=== PATIENT | female | born 1935 | race Caucasian/White ===

== ENCOUNTER 2017-09-18 12:21 | Emergency (ER) | payer MEDICARE, OTHER ==
[2017-09-18 13:00] VITALS: BP 172/72
[2017-09-18] MEDS ORDERED: Lidocaine 1% 10 ML MDV INJECT ONE (13:09)
--- NOTE | 2017-09-18 13:16 | EDM.PDOC ---
ED HPI GENERAL MEDICAL PROBLEM - General Chief Complaint: Laceration Stated Complaint: RIGHT PINKY INJURY Time Seen by Provider: 09/18/17 13:05 Source of Information: Reports: Patient History Limitations: Reports: No Limitations - History of Present Illness INITIAL COMMENTS - FREE TEXT/NARRATIVE: Patient is a 81-year-old female who presents to the ED complaining of a laceration to the distal phalanx of the right fifth finger. Patient accidentally got her finger caught in a door while it was closing on the hinge side. Pain is localized. Bleeding controlled. Tetanus status up-to-date. No other complaints at this time. Right 5-Little finger Pain Score (Numeric/FACES): 8 - Related Data Allergies Allergy/AdvReac Type Severity Reaction Status Date / Time No Known Allergies Allergy Verified 09/18/17 13:00 Home Meds: Home Meds Cephalexin [Keflex] 500 mg PO Q6HR #28 cap 09/18/17 [Rx] Past Medical History Other HEENT History: Glasses Cardiovascular History: Reports: Hypertension Other Genitourinary History: Urgency, surgery to assist with and it helped for a few years but now she has trouble holding her bladder again. 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 Other Musculoskeletal Surgeries/Procedures:: 2 back surgeries Social & Family History - Tobacco Use Smoking Status *Q: Never Smoker Second Hand Smoke Exposure: No - Alcohol Use Days Per Week of Alcohol Use: 0 - Recreational Drug Use Recreational Drug Use: No ED ROS GENERAL - Review of Systems Review Of Systems: See Below Musculoskeletal: Reports: Other (finger pain) Skin: Reports: Wound Neurological: Denies: Numbness, Tingling ED EXAM, SKIN/RASH Exam: See Below Exam Limited By: No Limitations General Appearance: Alert, WD/WN, No Apparent Distress Ears: Hearing Grossly Normal Nose: Normal Inspection Throat/Mouth: Normal Voice, No Airway Compromise Neck: Normal Inspection, Supple Respiratory/Chest: No Respiratory Distress, No Accessory Muscle Use Cardiovascular: Normal Peripheral Pulses, Regular Rate, Rhythm Peripheral Pulses: 2+: Radial (L) Extremities: Other (2.25 cm laceration to the ventral side of the distal phalanx. No pain with flexion/extension of the joints of the affected finger. No sensory deficits noted. no other complaints with plapation of the other fingers and hand. ) Neurological: Alert, Oriented, CN II-XII Intact, Normal Cognition, No Motor/ Sensory Deficits Psychiatric: Normal Affect, Normal Mood Skin: Warm, Dry ED SKIN PROCEDURES - Laceration/Wound Repair Right Finger Lac/Wound length In cm: 2.2 Appearance: Subcutaneous, Clean Distal NVT: Neuro & Vascular Intact, No Tendon Injury Anesthetic Type: Local Local Anesthesia - Lidocaine (Xylocaine): 1% Plain Local Anesthetic Volume: 4cc Skin Prep: Chlorhexidine (Hibiciens), Saline, Sterile Drape Exploration/Debridement/Repair: Wound Explored, In a Bloodless Field, Explored to Base, No Foreign Material Found Closed with: Sutures Suture Size: 4-0 # of Sutures: 9 Suture Type: Prolene, Interrupted, Simple Drain Placement: No Sterile Dressing Applied: Nurse Tetanus Status Addressed: Yes Complications: No Course - Vital Signs Last Recorded V/S: Last Vital Signs Temp 98.5 F 09/18/17 12:56 Pulse 88 09/18/17 12:56 Resp 18 09/18/17 12:56 BP 172/72 H 09/18/17 12:56 Pulse Ox 100 09/18/17 12:56 - Orders/Labs/Meds Orders: Active Orders 24 hr Category Date Time Status Fingers Fifth Digit Rt F9 [CR] Stat Exams 09/18/17 13:30 Taken Meds: Medications Discontinued Medications Generic Name Dose Route Start Last Admin Trade Name Freq PRN Reason Stop Dose Admin Lidocaine HCl 10 ml 09/18/17 13:09 09/18/17 13:17 Xylocaine 1% INJECT 09/18/17 13:10 10 ml ONETIME ONE Administration - Re-Assessments/Exams Free Text/Narrative Re-Assessment/Exam: Laceration to the distal phalanx of the right 5th finger sustained from a crush injury. Patient has full range of motion. No sensory deficits. X-ray of the right pinky finger will be obtained. Ordered lidocaine 1%. 09/18/17 13:35 Laceration closed with no complications. X-ray of the finger did reveal a small tuft fracture present. For Keflex 500 mg by mouth. Splint applied with dressing. Final interpretation pending. Discharge instructions as documented. Departure - Departure Time of Disposition: 13:36 Disposition: Home, Self-Care 01 Condition: Good Clinical Impression: Closed fracture of tuft of distal phalanx of finger Laceration of finger Qualifiers: Encounter type: initial encounter Finger: little finger Damage to nail status: without damage Foreign body presence: without foreign body Laterality: right Qualified Code(s): S61.216A - Laceration without foreign body of right little finger without damage to nail, initial encounter - Discharge Information Prescriptions: Cephalexin [Keflex] 500 mg PO Q6HR #28 cap Instructions: Laceration Care, Adult, [id number], Stitches, [place], or Adhesive Wound Closure, [id number] Referrals: Godwin Degroot MD [Primary Care Provider] - Forms: ED Department Discharge Additional Instructions: Cleanse site twice daily with soap and water, pat dry, reapply triple antibiotic ointment, and dressing. Keep area clean and dry. Do not soak wound. Continue to wear splint for the next month. Follow-up with PCP for re-x-rays to ensure properly healed. Take Keflex 500 mg 4 times a day for the next 7 days. Elevate when able to decrease swelling and pain. Apply ice to the affected area 4 times daily, 30 minutes in duration. Take aleve 1-2 tabs twice a day and tylenol 650mg every 4 to 6 hours for pain. Follow-up with a provider at [facility] in [place] in 10 days for suture removal. Return to the ED as needed for any new or worsening symptoms. - My Orders Last 24 Hours: My Active Orders 09/18/17 13:30 Fingers Fifth Digit Rt F9 [CR] Stat - Assessment/Plan Last 24 Hours: My Active Orders 09/18/17 13:30 Fingers Fifth Digit Rt F9 [CR] Stat
[2017-09-18] MEDS ORDERED: Cephalexin 500 MG Cap PO ONE (14:16)
--- NOTE | 2017-09-20 07:59 | CR ---
Right fifth finger: Four views of the right fifth finger were obtained. Comparison: No prior finger or hand exam. Soft tissue swelling and soft tissue injury identified distally. Bony structures are slightly osteopenic. No acute fracture, dislocation or other bony abnormality is seen. Impression: 1. Incidental findings. No acute bony abnormality is identified on right fifth finger study. Diagnostic code #2
== END 2017-09-18 14:15 | disposition home or self-care (01) ==
LOC: JD.ED 12:21
DX: S62.636A Displaced fracture of distal phalanx of right little finger, initial encounter for closed fracture (principal); S61.216A Laceration without foreign body of right little finger without damage to nail, initial encounter; W23.0XXA Caught, crushed, jammed, or pinched between moving objects, initial encounter; I10 Essential (primary) hypertension
CPT/HCPCS: 12001; 73140; 99284; A9270; 99283-25

== ENCOUNTER 2020-01-09 08:11 | Day surgery (SDC) | payer MEDICARE, OTHER ==
[~2020-01-09 08:11] MED LIST: Phenylephrine 2.5% Ophth Soln 2 ML Bot EYELF SCH; Tropicamide 1% Ophth Soln 15 ML Bottle EYELF SCH
[2020-01-09] MEDS: Brimonidine 0.2% Ophth Soln 5 ML Bottle EYELF SCH ×2 (08:42→09:29)
[2020-01-09 10:05] VITALS: BP 134/61; PULSE 57
== END 2020-01-09 09:30 | disposition home or self-care (01) ==
LOC: JD.SDS 08:11
PROVIDERS: ATTEND Ophthalmology
DX: H26.492 Other secondary cataract, left eye (principal); H40.1134 Primary open-angle glaucoma, bilateral, indeterminate stage; H35.363 Drusen (degenerative) of macula, bilateral; H35.3131 Nonexudative age-related macular degeneration, bilateral, early dry stage; G24.5 Blepharospasm; H02.834 Dermatochalasis of left upper eyelid; H02.831 Dermatochalasis of right upper eyelid; H16.223 Keratoconjunctivitis sicca, not specified as Sjogren's, bilateral; H16.103 Unspecified superficial keratitis, bilateral; H34.8312 Tributary (branch) retinal vein occlusion, right eye, stable; Z79.899 Other long term (current) drug therapy; E78.00 Pure hypercholesterolemia, unspecified; I10 Essential (primary) hypertension; Z96.1 Presence of intraocular lens; Z98.41 Cataract extraction status, right eye; Z98.42 Cataract extraction status, left eye; Z98.890 Other specified postprocedural states

== ENCOUNTER 2020-07-08 08:55 | Inpatient (IN) | payer MEDICARE, OTHER ==
[2020-07-08] MEDS ORDERED: Sodium Chloride 0.9% 10 ML Syringe FLUSH PRN (09:19)
[2020-07-08] MEDS ORDERED: Sodium Chloride 0.9% 1,000 ML IV ONE (09:19)
[2020-07-08] MEDS ORDERED: Ondansetron 4 MG/2 ML SDV IVPUSH ONE (09:24)
--- NOTE | 2020-07-08 09:29 | EDM.PDOC ---
ED HPI GENERAL MEDICAL PROBLEM - General Chief Complaint: Chest Pain Stated Complaint: [facility] Time Seen by Provider: 07/08/20 09:06 Source of Information: Reports: Patient, EMS History Limitations: Reports: No Limitations - History of Present Illness INITIAL COMMENTS - FREE TEXT/NARRATIVE: The patient presents by [facility] for chest pain, cough, fever and generalized weakness. This all started this weekend on Wednesday with a cough, congestion and runny nose. She has a fever and generalized weakness. She also has a headache and chest pressure. She is short of breath. She does have urinary issues where she is incontinent at times. 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 She is in remission. She has nausea and vomiting. She has no diarrhea. She still has her sense of taste and smell. Onset: Gradual Duration: Day(s): Location: Reports: Chest Quality: Reports: Pressure Severity: Moderate Improves with: Reports: None Worsens with: Reports: None Associated Symptoms: Reports: Chest Pain, Cough, Fever/Chills, Headaches, Nausea/Vomiting, Shortness of Breath Chest Pain Score (Numeric/FACES): 5 - Related Data Allergies Allergy/AdvReac Type Severity Reaction Status Date / Time No Known Allergies Allergy Verified 07/08/20 09:18 Home Meds: Home Meds Alendronate Sodium [Fosamax] 70 mg PO GONZALEZ 01/08/20 [History] Ascorbic Acid [Vitamin C] 1,000 mg PO DAILY 01/08/20 [History] B2/Vits A,C,E/Lut/Zeaxanth/Min [Icaps] 1 tab PO DAILY 01/08/20 [History] Brimonidine Tartrate/Timolol [Combigan Eye Drops] 1 drop OP BID 01/08/20 [History] Dexlansoprazole [Dexilant] 60 mg PO DAILY 01/08/20 [History] Docusate Sodium [Colace] 100 mg PO BID 01/08/20 [History] Fish Oil/[place]-3 Fatty Acids [Fish Oil 1,000 MG] 1,000 mg PO DAILY 01/08/20 [History] Levothyroxine [Synthroid] 100 mcg PO ACBREAKFAST 01/08/20 [History] Losartan [Cozaar] 50 mg PO DAILY 01/08/20 [History] Mirabegron [Myrbetriq] 50 mg PO DAILY 01/08/20 [History] Propranolol [Inderal LA 24 Hr] 60 mg PO DAILY 01/08/20 [History] Propylene Glycol/PEG 400/Pf [Systane 0.3-0.4% Eye Drops] 1 drop OP ASDIRECTED PRN 01/08/20 [History] Rosuvastatin [Crestor] 5 mg PO DAILY 01/08/20 [History] Sertraline [Zoloft] 25 mg PO QPM 01/08/20 [History] Spironolactone [Aldactone] 25 mg PO DAILY 01/08/20 [History] Travoprost [Travatan Z] 1 ml EYERT QPM 01/08/20 [History] Past Medical History Other HEENT History: Glasses Cardiovascular History: Reports: Hypertension Other Genitourinary History: Urgency, surgery to assist with and it helped for a few years but now she has trouble holding her bladder again. 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 Other Musculoskeletal Surgeries/Procedures:: 2 back surgeries Social & Family History - Family History Family Medical History: Noncontributory ED ROS GENERAL - Review of Systems Review Of Systems: See Below Constitutional: Reports: Fever, Chills, Malaise, Weakness, Fatigue HEENT: Reports: Other (runny nose and congestion) Respiratory: Reports: Shortness of Breath, Cough Cardiovascular: Reports: No Symptoms Endocrine: Reports: Fatigue GI/Abdominal: Reports: Nausea, Vomiting. Denies: Abdominal Pain, Diarrhea : Reports: No Symptoms Musculoskeletal: Reports: No Symptoms Neurological: Reports: Headache, Weakness (generalized). Denies: Dizziness, Numbness ED EXAM, GENERAL - Physical Exam Exam: See Below Exam Limited By: No Limitations General Appearance: Alert, No Apparent Distress Ears: Normal External Exam Nose: Normal Inspection Head: Atraumatic, Normocephalic Neck: Normal Inspection, Supple, Non-Tender Respiratory/Chest: No Respiratory Distress, Lungs Clear, Normal Breath Sounds Cardiovascular: Regular Rate, Rhythm, No Edema, No Murmur GI/Abdominal: Soft, Non-Tender, No Organomegaly, No Mass Back Exam: Normal Inspection Extremities: Normal Inspection Neurological: Alert, Oriented, No Motor/Sensory Deficits Course - Vital Signs Last Recorded V/S: Last Vital Signs Temp 98.7 F 07/08/20 11:15 Pulse 100 07/08/20 08:55 Resp 16 07/08/20 08:55 BP 190/82 H 07/08/20 08:55 Pulse Ox 96 07/08/20 08:55 - Orders/Labs/Meds Orders: Active Orders 24 hr Category Date Time Status Blood Pressure Mgt: Sepsis [RC] Q15MX2 Care 07/08/20 09:19 Active EKG Documentation Completion [RC] ASDIRECTED Care 07/08/20 09:22 Active Implanted Port Access [RC] CONTINUOUS Care 07/08/20 09:23 Active CULTURE BLOOD [BC] Stat Lab 07/08/20 09:30 Received CULTURE BLOOD [BC] Stat Lab 07/08/20 09:49 Received Sodium Chloride 0.9% [Normal Saline] 1,000 ml Med 07/08/20 09:19 Active IV BOLUS Sodium Chloride 0.9% [Saline Flush] Med 07/08/20 09:19 Active 10 ml FLUSH ASDIRECTED PRN Blood Culture x2 Reflex Set [OM.PC] Stat Oth 07/08/20 09:19 Ordered Saline Lock Insert [OM.PC] Stat Oth 07/08/20 09:19 Ordered EKG 12 Lead [EK] Stat Ther 07/08/20 09:22 Ordered Medication Orders Sodium Chloride (Normal Saline) 1,000 mls @ 125 mls/hr IV BOLUS ONE; Protocol Stop: 07/08/20 17:18 Last Admin: 07/08/20 09:51 Dose: 125 mls/hr Documented by: FLORINDA Sodium Chloride (Saline Flush) 10 ml FLUSH ASDIRECTED PRN PRN Reason: Keep Vein Open Last Admin: 07/08/20 09:52 Dose: 10 ml Documented by: FLORINAD Labs: Laboratory Tests 07/08/20 07/08/20 07/08/20 Range/Units 09:35 09:35 09:35 WBC (3.98-10.04) K/mm3 RBC (3.98-5.22) M/mm3 Hgb (11.2-15.7) gm/dl Hct (34.1-44.9) % MCV (79.4-94.8) fl MCH (25.6-32.2) pg MCHC (32.2-35.5) g/dl RDW Std Deviation (36.4-46.3) fL Plt Count (182-369) K/mm3 MPV (9.4-12.3) fl Neutrophils % (Manual) (40-60) % Band Neutrophils % (0-10) % Lymphocytes % (Manual) (20-40) % Atypical Lymphs % % Monocytes % (Manual) (2-10) % Eosinophils % (Manual) (0.7-5.8) % Basophils % (Manual) (0.1-1.2) Platelet Estimate RBC Morph Comment PT 10.9 (9.7-11.7) SECONDS INR 1.02 D-Dimer, Quantitative 0.65 H (0.19-0.50) mg/L Puncture Site ABG pH (7.35-7.45) ABG pCO2 (35.0-45.0) mmHg ABG pO2 (80.0-100.0) mmHg ABG HCO3 (22.0-26.0) meq/L ABG O2 Saturation (96.0-97.0) % ABG Base Excess (-2-2.0) Evaristo Test A-a Gradient mmHg O2 Delivery Device Oxygen Flow Rate FiO2 (21.00-100.00) % Sodium 136 (136-145) mEq/L Potassium 3.4 L (3.5-5.1) mEq/L Chloride 98 (98-107) mEq/L Carbon Dioxide 26 (21-32) mEq/L Anion Gap 15.4 H (5-15) BUN 10 (7-18) mg/dL Creatinine 0.7 (0.55-1.02) mg/dL Est Cr Clr Drug Dosing 51.26 mL/min Estimated GFR (MDRD) > 60 (>60) mL/min BUN/Creatinine Ratio 14.3 (14-18) Glucose 123 H (83-115) mg/dL Lactic Acid 1.0 (0.4-2.0) mmol/L Calcium 8.8 (8.5-10.1) mg/dL Ferritin (8-252) ng/ml Total Bilirubin 0.5 (0.2-1.0) mg/dL AST 33 (15-37) U/L ALT 33 (14-59) U/L Alkaline Phosphatase 105 (46-116) U/L Lactate Dehydrogenase 237 H (81-234) U/L Troponin I < 0.017 (0.00-0.056) ng/mL C-Reactive Protein 1.1 H* (<1.0) mg/dL Total Protein 7.4 (6.4-8.2) g/dl Albumin 4.0 (3.4-5.0) g/dl Globulin 3.4 gm/dL Albumin/Globulin Ratio 1.2 (1-2) Urine Color (Yellow) Urine Appearance (Clear) Urine pH (5.0-8.0) Ur Specific [place] (1.005-1.030) Urine Protein (Negative) Urine Glucose (UA) (Negative) Urine Ketones (Negative) Urine Occult Blood (Negative) Urine Nitrite (Negative) Urine Bilirubin (Negative) Urine Urobilinogen (0.2-1.0) Ur Leukocyte Esterase (Negative) Urine RBC (0-5) /hpf Urine WBC (0-5) /hpf Ur Epithelial Cells (0-5) /hpf Urine Bacteria (FEW) /hpf Urine Mucus (FEW) /hpf SARS Virus RNA (PCR) (NEGATIVE) 07/08/20 07/08/20 07/08/20 Range/Units 09:35 09:39 09:40 WBC 5.14 (3.98-10.04) K/mm3 RBC 4.97 (3.98-5.22) M/mm3 Hgb 14.8 D (11.2-15.7) gm/dl Hct 44.4 (34.1-44.9) % MCV 89.3 (79.4-94.8) fl MCH 29.8 (25.6-32.2) pg MCHC 33.3 (32.2-35.5) g/dl RDW Std Deviation 43.4 (36.4-46.3) fL Plt Count 172 L (182-369) K/mm3 MPV 10.9 (9.4-12.3) fl Neutrophils % (Manual) 65 H (40-60) % Band Neutrophils % 0 (0-10) % Lymphocytes % (Manual) 12 L (20-40) % Atypical Lymphs % 0 % Monocytes % (Manual) 23 H (2-10) % Eosinophils % (Manual) 0 L (0.7-5.8) % Basophils % (Manual) 0 L (0.1-1.2) Platelet Estimate Adequate RBC Morph Comment Normal PT (9.7-11.7) SECONDS INR D-Dimer, Quantitative (0.19-0.50) mg/L Puncture Site Rt radial ABG pH 7.47 H (7.35-7.45) ABG pCO2 33.7 L (35.0-45.0) mmHg ABG pO2 91.0 (80.0-100.0) mmHg ABG HCO3 24.1 (22.0-26.0) meq/L ABG O2 Saturation 96.2 (96.0-97.0) % ABG Base Excess 1.4 (-2-2.0) Evaristo Test Positive A-a Gradient 16 mmHg O2 Delivery Device Room air Oxygen Flow Rate 0.0 FiO2 21.00 (21.00-100.00) % Sodium (136-145) mEq/L Potassium (3.5-5.1) mEq/L Chloride (98-107) mEq/L Carbon Dioxide (21-32) mEq/L Anion Gap (5-15) BUN (7-18) mg/dL Creatinine (0.55-1.02) mg/dL Est Cr Clr Drug Dosing mL/min Estimated GFR (MDRD) (>60) mL/min BUN/Creatinine Ratio (14-18) Glucose (83-115) mg/dL Lactic Acid (0.4-2.0) mmol/L Calcium (8.5-10.1) mg/dL Ferritin 37 (8-252) ng/ml Total Bilirubin (0.2-1.0) mg/dL AST (15-37) U/L ALT (14-59) U/L Alkaline Phosphatase (46-116) U/L Lactate Dehydrogenase (81-234) U/L Troponin I (0.00-0.056) ng/mL C-Reactive Protein (<1.0) mg/dL Total Protein (6.4-8.2) g/dl Albumin (3.4-5.0) g/dl Globulin gm/dL Albumin/Globulin Ratio (1-2) Urine Color (Yellow) Urine Appearance (Clear) Urine pH (5.0-8.0) Ur Specific [place] (1.005-1.030) Urine Protein (Negative) Urine Glucose (UA) (Negative) Urine Ketones (Negative) Urine Occult Blood (Negative) Urine Nitrite (Negative) Urine Bilirubin (Negative) Urine Urobilinogen (0.2-1.0) Ur Leukocyte Esterase (Negative) Urine RBC (0-5) /hpf Urine WBC (0-5) /hpf Ur Epithelial Cells (0-5) /hpf Urine Bacteria (FEW) /hpf Urine Mucus (FEW) /hpf SARS Virus RNA (PCR) (NEGATIVE) 07/08/20 07/08/20 Range/Units 10:05 10:20 WBC (3.98-10.04) K/mm3 RBC (3.98-5.22) M/mm3 Hgb (11.2-15.7) gm/dl Hct (34.1-44.9) % MCV (79.4-94.8) fl MCH (25.6-32.2) pg MCHC (32.2-35.5) g/dl RDW Std Deviation (36.4-46.3) fL Plt Count (182-369) K/mm3 MPV (9.4-12.3) fl Neutrophils % (Manual) (40-60) % Band Neutrophils % (0-10) % Lymphocytes % (Manual) (20-40) % Atypical Lymphs % % Monocytes % (Manual) (2-10) % Eosinophils % (Manual) (0.7-5.8) % Basophils % (Manual) (0.1-1.2) Platelet Estimate RBC Morph Comment PT (9.7-11.7) SECONDS INR D-Dimer, Quantitative (0.19-0.50) mg/L Puncture Site ABG pH (7.35-7.45) ABG pCO2 (35.0-45.0) mmHg ABG pO2 (80.0-100.0) mmHg ABG HCO3 (22.0-26.0) meq/L ABG O2 Saturation (96.0-97.0) % ABG Base Excess (-2-2.0) Evaristo Test A-a Gradient mmHg O2 Delivery Device Oxygen Flow Rate FiO2 (21.00-100.00) % Sodium (136-145) mEq/L Potassium (3.5-5.1) mEq/L Chloride (98-107) mEq/L Carbon Dioxide (21-32) mEq/L Anion Gap (5-15) BUN (7-18) mg/dL Creatinine (0.55-1.02) mg/dL Est Cr Clr Drug Dosing mL/min Estimated GFR (MDRD) (>60) mL/min BUN/Creatinine Ratio (14-18) Glucose (83-115) mg/dL Lactic Acid (0.4-2.0) mmol/L Calcium (8.5-10.1) mg/dL Ferritin (8-252) ng/ml Total Bilirubin (0.2-1.0) mg/dL AST (15-37) U/L ALT (14-59) U/L Alkaline Phosphatase (46-116) U/L Lactate Dehydrogenase (81-234) U/L Troponin I (0.00-0.056) ng/mL C-Reactive Protein (<1.0) mg/dL Total Protein (6.4-8.2) g/dl Albumin (3.4-5.0) g/dl Globulin gm/dL Albumin/Globulin Ratio (1-2) Urine Color Yellow (Yellow) Urine Appearance Clear (Clear) Urine pH 8.5 H (5.0-8.0) Ur Specific [place] 1.020 (1.005-1.030) Urine Protein 1+ H (Negative) Urine Glucose (UA) Negative (Negative) Urine Ketones 2+ H (Negative) Urine Occult Blood Negative (Negative) Urine Nitrite Negative (Negative) Urine Bilirubin Negative (Negative) Urine Urobilinogen 0.2 (0.2-1.0) Ur Leukocyte Esterase Negative (Negative) Urine RBC 0-5 (0-5) /hpf Urine WBC 0-5 (0-5) /hpf Ur Epithelial Cells 0-5 (0-5) /hpf Urine Bacteria Few (FEW) /hpf Urine Mucus Few (FEW) /hpf SARS Virus RNA (PCR) Positive H (NEGATIVE) Meds: Medications Generic Name Dose Route Start Last Admin Trade Name Freq PRN Reason Stop Dose Admin Sodium Chloride 1,000 mls @ 125 mls/hr 07/08/20 09:19 07/08/20 09:51 Normal Saline IV 07/08/20 17:18 125 mls/hr BOLUS ONE Administration Protocol Sodium Chloride 10 ml 07/08/20 09:19 07/08/20 09:52 Saline Flush FLUSH 10 ml ASDIRECTED PRN Administration Keep Vein Open Discontinued Medications Generic Name Dose Route Start Last Admin Trade Name Braxton PRN Reason Stop Dose Admin Acetaminophen 975 mg 07/08/20 11:10 07/08/20 11:15 Tylenol PO 07/08/20 11:11 975 mg NOW ONE Administration Ondansetron HCl 4 mg 07/08/20 09:24 07/08/20 09:52 Zofran IVPUSH 07/08/20 09:25 4 mg ONETIME ONE Administration - Re-Assessments/Exams Free Text/Narrative Re-Assessment/Exam: 07/08/20 09:31 The patient went in COVID precautions. I have ordered my nurse to access her port and give NS at 125ml/hr, zofran 4mg IV, labs, UA, blood cultures, COVID 19, and CXR. 07/08/20 11:40 Her EKG shows a NSR with no acute changes. She does have a 1st degree HB. Her CXR shows nothing acute. Her CBC is negative. Her PT is normal. Her D-dimer is slightly elevated at 0.65. Her pH is elevated at 7.47. Her pCO2 is low at 33.7. Her K is low at 3.4. Her anion gap is elevated at 15.4. Her UA shows no UTI. Her lactic acid is 1. Her LDH is elevated at 237. Her troponin is negative. Her CRP is elevated at 1.1. Her COVID 19 is positive. She had a headache so I ordered some tylenol. Her CXR looks good and her oxygen saturations look good but she is very weak and I do not think she is going to do well at home. I called Dr Matthews and he agreed to the admission. Departure - Departure Time of Disposition: 11:45 Disposition: Admitted As Inpatient 68 Condition: Fair Clinical Impression: COVID-19, Generalized weakness Referrals: Godwin Degroot MD [Primary Care Provider] - Forms: ED Department Discharge Sepsis Event Note (ED) - Evaluation Sepsis Screening Result: No Definite Risk - Focused Exam Vital Signs: Vital Signs Temp Temp Pulse Resp BP Pulse Ox 07/08/20 11:15 98.7 F 07/08/20 08:55 98.6 F 100 16 190/82 H 96 - My Orders Last 24 Hours: My Active Orders 07/08/20 09:19 Blood Pressure Mgt: Sepsis [RC] Q15MX2 Sodium Chloride 0.9% [Normal Saline] 1,000 ml IV BOLUS Sodium Chloride 0.9% [Saline Flush] 10 ml FLUSH ASDIRECTED PRN Blood Culture x2 Reflex Set [OM.PC] Stat Saline Lock Insert [OM.PC] Stat 07/08/20 09:22 EKG Documentation Completion [RC] ASDIRECTED EKG 12 Lead [EK] Stat 07/08/20 09:23 Implanted Port Access [RC] CONTINUOUS 07/08/20 09:30 CULTURE BLOOD [BC] Stat 07/08/20 09:49 CULTURE BLOOD [BC] Stat - Assessment/Plan Last 24 Hours: My Active Orders 07/08/20 09:19 Blood Pressure Mgt: Sepsis [RC] Q15MX2 Sodium Chloride 0.9% [Normal Saline] 1,000 ml IV BOLUS Sodium Chloride 0.9% [Saline Flush] 10 ml FLUSH ASDIRECTED PRN Blood Culture x2 Reflex Set [OM.PC] Stat Saline Lock Insert [OM.PC] Stat 07/08/20 09:22 EKG Documentation Completion [RC] ASDIRECTED EKG 12 Lead [EK] Stat 07/08/20 09:23 Implanted Port Access [RC] CONTINUOUS 07/08/20 09:30 CULTURE BLOOD [BC] Stat 07/08/20 09:49 CULTURE BLOOD [BC] Stat
--- NOTE | 2020-07-08 10:23 | CR ---
Chest: Frontal view of the chest was obtained. Comparison: Prior chest x-ray of 08/21/09. Heart size and mediastinum are normal. Lungs are clear with no acute parenchymal change. Right-sided infusion port is seen. Previous lumbar spine surgery is noted. Scoliosis present with him in spine. Surgical clips are seen from prior cholecystectomy. Impression: 1. Findings as described above. 2. Nothing acute is appreciated. Diagnostic code #2 This report was dictated in MDT
[2020-07-08] MEDS ORDERED: Acetaminophen 325 MG Tab PO ONE (11:10)
[2020-07-08] MEDS ORDERED: Carboxymethylcellulose Sodium 1% Ophth Gel 15 ML Bottle EYEBOTH PRN (14:11)
--- NOTE | 2020-07-08 14:28 | PCM.HP.2 ---
H&P History of Present Illness - General Date of Service: 07/08/20 Admit Problem/Dx: Admission Diagnosis/Problem Admission Diagnosis/Problem Weakness Source of Information: Patient, Provider, RN, RN Notes Reviewed History Limitations: Reports: No Limitations - History of Present Illness Initial Comments - Free Text/Narative: Evangelina is a 84 year old female who presented to the ED by [facility] with complaints of chest pain and cough and sore throat. She states that these symptoms started two days ago and she believed that she was just getting a cold. Generalized weakness and nausea were also noted. She is short of breath and has a headache at present. She denies vomiting but has been nauseated. She states that she still has an appetite and has been eating frequent small meals. She has a history of urinary incontinence. History of non Hodgkin's lymphoma that has been in remission for about a year. She has a port to her right chest. In the ED chest xray revealed nothing acute. She had a temp of 98.7, pulse 100, RR 16, BP 190/82 and pulse ox was 96% on room air. CBC was unremarkable other than a platelet count of 172. ABG's reveal a pH of 7.47, pCO2 33.7 pO2 91.0, HCO3 24.1 on room air. D-dimer 0.65. Na 136, K+3.4, Anion Gap 15.4., lactic acid 1.0, LDH 237, CRP 1.1 Ferritin 37. UA was unremarkable. Blood cultures were obtained. SARS positive. NS was started at 125ml/hr. Onset of Symptoms: Reports: Gradual, Other (Wednesday, 2019) Duration of Symptoms: Reports: Constant Location: Reports: Chest, Generalized (respiratory symptoms, congestion, cough, sore throat, body aches, nausea without vomiting) Quality: Reports: Ache Severity: Mild Improves with: Reports: None Worsens with: Reports: None Associated Symptoms: Reports: Chest Pain, Cough, Fever/Chills, Malaise, Nausea/Vomiting (nausea without vomiting) Chest Pain Score (Numeric/FACES): 5 - Related Data Allergies/Adverse Reactions: Allergies Allergy/AdvReac Type Severity Reaction Status Date / Time No Known Allergies Allergy Verified 07/08/20 13:17 Home Medications: Home Meds Alendronate Sodium [Fosamax] 70 mg PO GONZALEZ 01/08/20 [History] Ascorbic Acid [Vitamin C] 1,000 mg PO DAILY 01/08/20 [History] B2/Vits A,C,E/Lut/Zeaxanth/Min [Icaps] 1 tab PO DAILY 01/08/20 [History] Brimonidine Tartrate/Timolol [Combigan Eye Drops] 1 drop OP BID 01/08/20 [His tory] Dexlansoprazole [Dexilant] 60 mg PO DAILY 01/08/20 [History] Docusate Sodium [Colace] 100 mg PO BID 01/08/20 [History] Fish Oil/Mineral-3 Fatty Acids [Fish Oil 1,000 MG] 1,000 mg PO DAILY 01/08/20 [History] Levothyroxine [Synthroid] 100 mcg PO ACBREAKFAST 01/08/20 [History] Losartan [Cozaar] 50 mg PO DAILY 01/08/20 [History] Mirabegron [Myrbetriq] 50 mg PO DAILY 01/08/20 [History] Propranolol [Inderal LA 24 Hr] 60 mg PO DAILY 01/08/20 [History] Propylene Glycol/PEG 400/Pf [Systane 0.3-0.4% Eye Drops] 1 drop OP ASDIRECTED PRN 01/08/20 [History] Rosuvastatin [Crestor] 5 mg PO DAILY 01/08/20 [History] Sertraline [Zoloft] 25 mg PO QPM 01/08/20 [History] Spironolactone [Aldactone] 25 mg PO DAILY 01/08/20 [History] Betamethasone/Propylene Glyc [Betamethasone Dp Aug 0.05% Oin] 1 applic TOP BID 07/08/20 [History] Cyclobenzaprine [Flexeril] 10 mg PO BEDTIME PRN 07/08/20 [History] Latanoprost 1 drop EYERT BEDTIME 07/08/20 [History] Past Medical History HEENT History: Reports: Impaired Vision, Macular Degeneration Other HEENT History: Glasses Cardiovascular History: Reports: High Cholesterol, Hypertension Other Cardiovascular History: 'legs swell' Respiratory History: Reports: Bronchitis, Recurrent, Pneumonia, Recurrent Gastrointestinal History: Reports: PUD Genitourinary History: Reports: Urinary Incontinence, UTI, Recurrent Other Genitourinary History: Urgency, surgery to assist with and it helped for a few years but now she has trouble holding her bladder again. 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 Hematologic History: Reports: Anemia Immunologic History: Reports: Immunosuppression Oncologic (Cancer) History: Reports: Non-Hodgkin's Lymphoma Other Oncologic History: remission for about a year Dermatologic History: Reports: Psoriasis - Infectious Disease History Infectious Disease History: Reports: Influenza, Measles, Mumps, Novel Coronavirus - Past Surgical History HEENT Surgical History: Reports: Cataract Surgery GI Surgical History: Reports: Appendectomy, Cholecystectomy Other GI Surgeries/Procedures: 2 colon surgeries to remove polyps. Other Musculoskeletal Surgeries/Procedures:: 2 back surgeries Social & Family History - Family History Family Medical History: Noncontributory - Tobacco Use Smoking Status *Q: Never Smoker Second Hand Smoke Exposure: No - Caffeine Use Caffeine Use: Reports: None - Recreational Drug Use Recreational Drug Use: No H&P Review of Systems - Review of Systems: Review Of Systems: See Below General: Reports: Malaise, Weakness, Fatigue HEENT: Reports: Sore Throat, Other (macular degeneration to right eye). Denies: Headaches Pulmonary: Reports: Pleuritic Chest Pain, Cough. Denies: Wheezing, Sputum Cardiovascular: Denies: Palpitations, Dyspnea on Exertion, Orthopnea, Edema, Syncope Gastrointestinal: Reports: Nausea. Denies: Abdominal Pain, Diarrhea, Vomiting Genitourinary: Reports: Frequency, Incontinence. Denies: Dysuria, Burning, Pain Musculoskeletal: Reports: No Symptoms Skin: Reports: No Symptoms Psychiatric: Reports: No Symptoms Neurological: Reports: No Symptoms Hematologic/Lymphatic: Reports: No Symptoms Immunologic: Reports: No Symptoms Exam - Exam Exam: See Below - Vital Signs Vital Signs: Last Vital Signs Temp 98.2 F 07/08/20 13:15 Pulse 78 07/08/20 13:15 Resp 16 07/08/20 13:15 BP 144/98 H 07/08/20 13:15 Pulse Ox 97 07/08/20 13:15 Weight: 155 lb 14.4 oz - Exam Quality Assessment: DVT Prophylaxis. No: Supplemental Oxygen, Urinary Catheter General: Alert, Oriented, Cooperative, Mild Distress HEENT: Conjunctiva Clear, Hearing Intact (oral mucosa slightly dry, macular deg enteration to right eye) Neck: Supple, Trachea Midline, Full Range of Motion. No: Lymphadenopathy Lungs: Clear to Auscultation, Normal Respiratory Effort. No: Decreased Breath Sounds, Crackles, Rales, Rhonchi, Rub, Wheezing Cardiovascular: Regular Rate, Regular Rhythm, Normal S1, Normal S2 GI/Abdominal Exam: Normal Bowel Sounds, Soft, Non-Tender, No Distention Back Exam: Normal Inspection Extremities: Normal Inspection, Normal Range of Motion, Non-Tender, No Pedal Edema, Normal Capillary Refill Peripheral Pulses: 2+: Radial (L), Radial (R) Skin: Warm, Dry, Intact Neurological: Cranial Nerves Intact, Normal Speech Neuro Extensive - Mental Status: Alert, Oriented x3, Normal Mood/Affect, Normal Cognition, Memory Intact Psychiatric: Alert, Normal Affect, Normal Mood - Patient Data Lab Results Last 24 hrs: Laboratory Results - last 24 hr 07/08/20 07/08/20 07/08/20 Range/Units 09:35 09:35 09:35 WBC (3.98-10.04) K/mm3 RBC (3.98-5.22) M/mm3 Hgb (11.2-15.7) gm/dl Hct (34.1-44.9) % MCV (79.4-94.8) fl MCH (25.6-32.2) pg MCHC (32.2-35.5) g/dl RDW Std Deviation (36.4-46.3) fL Plt Count (182-369) K/mm3 MPV (9.4-12.3) fl Neutrophils % (Manual) (40-60) % Band Neutrophils % (0-10) % Lymphocytes % (Manual) (20-40) % Atypical Lymphs % % Monocytes % (Manual) (2-10) % Eosinophils % (Manual) (0.7-5.8) % Basophils % (Manual) (0.1-1.2) Platelet Estimate RBC Morph Comment PT 10.9 (9.7-11.7) SECONDS INR 1.02 D-Dimer, Quantitative 0.65 H (0.19-0.50) mg/L Puncture Site ABG pH (7.35-7.45) ABG pCO2 (35.0-45.0) mmHg ABG pO2 (80.0-100.0) mmHg ABG HCO3 (22.0-26.0) meq/L ABG O2 Saturation (96.0-97.0) % ABG Base Excess (-2-2.0) Evaristo Test A-a Gradient mmHg O2 Delivery Device Oxygen Flow Rate FiO2 (21.00-100.00) % Sodium 136 (136-145) mEq/L Potassium 3.4 L (3.5-5.1) mEq/L Chloride 98 (98-107) mEq/L Carbon Dioxide 26 (21-32) mEq/L Anion Gap 15.4 H (5-15) BUN 10 (7-18) mg/dL Creatinine 0.7 (0.55-1.02) mg/dL Est Cr Clr Drug Dosing 51.26 mL/min Estimated GFR (MDRD) > 60 (>60) mL/min BUN/Creatinine Ratio 14.3 (14-18) Glucose 123 H (83-115) mg/dL Lactic Acid 1.0 (0.4-2.0) mmol/L Calcium 8.8 (8.5-10.1) mg/dL Ferritin (8-252) ng/ml Total Bilirubin 0.5 (0.2-1.0) mg/dL AST 33 (15-37) U/L ALT 33 (14-59) U/L Alkaline Phosphatase 105 (46-116) U/L Lactate Dehydrogenase 237 H (81-234) U/L Troponin I < 0.017 (0.00-0.056) ng/mL C-Reactive Protein 1.1 H* (<1.0) mg/dL Total Protein 7.4 (6.4-8.2) g/dl Albumin 4.0 (3.4-5.0) g/dl Globulin 3.4 gm/dL Albumin/Globulin Ratio 1.2 (1-2) Urine Color (Yellow) Urine Appearance (Clear) Urine pH (5.0-8.0) Ur Specific [place] (1.005-1.030) Urine Protein (Negative) Urine Glucose (UA) (Negative) Urine Ketones (Negative) Urine Occult Blood (Negative) Urine Nitrite (Negative) Urine Bilirubin (Negative) Urine Urobilinogen (0.2-1.0) Ur Leukocyte Esterase (Negative) Urine RBC (0-5) /hpf Urine WBC (0-5) /hpf Ur Epithelial Cells (0-5) /hpf Urine Bacteria (FEW) /hpf Urine Mucus (FEW) /hpf SARS Virus RNA (PCR) (NEGATIVE) 07/08/20 07/08/20 07/08/20 Range/Units 09:35 09:39 09:40 WBC 5.14 (3.98-10.04) K/mm3 RBC 4.97 (3.98-5.22) M/mm3 Hgb 14.8 D (11.2-15.7) gm/dl Hct 44.4 (34.1-44.9) % MCV 89.3 (79.4-94.8) fl MCH 29.8 (25.6-32.2) pg MCHC 33.3 (32.2-35.5) g/dl RDW Std Deviation 43.4 (36.4-46.3) fL Plt Count 172 L (182-369) K/mm3 MPV 10.9 (9.4-12.3) fl Neutrophils % (Manual) 65 H (40-60) % Band Neutrophils % 0 (0-10) % Lymphocytes % (Manual) 12 L (20-40) % Atypical Lymphs % 0 % Monocytes % (Manual) 23 H (2-10) % Eosinophils % (Manual) 0 L (0.7-5.8) % Basophils % (Manual) 0 L (0.1-1.2) Platelet Estimate Adequate RBC Morph Comment Normal PT (9.7-11.7) SECONDS INR D-Dimer, Quantitative (0.19-0.50) mg/L Puncture Site Rt radial ABG pH 7.47 H (7.35-7.45) ABG pCO2 33.7 L (35.0-45.0) mmHg ABG pO2 91.0 (80.0-100.0) mmHg ABG HCO3 24.1 (22.0-26.0) meq/L ABG O2 Saturation 96.2 (96.0-97.0) % ABG Base Excess 1.4 (-2-2.0) Evaristo Test Positive A-a Gradient 16 mmHg O2 Delivery Device Room air Oxygen Flow Rate 0.0 FiO2 21.00 (21.00-100.00) % Sodium (136-145) mEq/L Potassium (3.5-5.1) mEq/L Chloride (98-107) mEq/L Carbon Dioxide (21-32) mEq/L Anion Gap (5-15) BUN (7-18) mg/dL Creatinine (0.55-1.02) mg/dL Est Cr Clr Drug Dosing mL/min Estimated GFR (MDRD) (>60) mL/min BUN/Creatinine Ratio (14-18) Glucose (83-115) mg/dL Lactic Acid (0.4-2.0) mmol/L Calcium (8.5-10.1) mg/dL Ferritin 37 (8-252) ng/ml Total Bilirubin (0.2-1.0) mg/dL AST (15-37) U/L ALT (14-59) U/L Alkaline Phosphatase (46-116) U/L Lactate Dehydrogenase (81-234) U/L Troponin I (0.00-0.056) ng/mL C-Reactive Protein (<1.0) mg/dL Total Protein (6.4-8.2) g/dl Albumin (3.4-5.0) g/dl Globulin gm/dL Albumin/Globulin Ratio (1-2) Urine Color (Yellow) Urine Appearance (Clear) Urine pH (5.0-8.0) Ur Specific [place] (1.005-1.030) Urine Protein (Negative) Urine Glucose (UA) (Negative) Urine Ketones (Negative) Urine Occult Blood (Negative) Urine Nitrite (Negative) Urine Bilirubin (Negative) Urine Urobilinogen (0.2-1.0) Ur Leukocyte Esterase (Negative) Urine RBC (0-5) /hpf Urine WBC (0-5) /hpf Ur Epithelial Cells (0-5) /hpf Urine Bacteria (FEW) /hpf Urine Mucus (FEW) /hpf SARS Virus RNA (PCR) (NEGATIVE) 07/08/20 07/08/20 Range/Units 10:05 10:20 WBC (3.98-10.04) K/mm3 RBC (3.98-5.22) M/mm3 Hgb (11.2-15.7) gm/dl Hct (34.1-44.9) % MCV (79.4-94.8) fl MCH (25.6-32.2) pg MCHC (32.2-35.5) g/dl RDW Std Deviation (36.4-46.3) fL Plt Count (182-369) K/mm3 MPV (9.4-12.3) fl Neutrophils % (Manual) (40-60) % Band Neutrophils % (0-10) % Lymphocytes % (Manual) (20-40) % Atypical Lymphs % % Monocytes % (Manual) (2-10) % Eosinophils % (Manual) (0.7-5.8) % Basophils % (Manual) (0.1-1.2) Platelet Estimate RBC Morph Comment PT (9.7-11.7) SECONDS INR D-Dimer, Quantitative (0.19-0.50) mg/L Puncture Site ABG pH (7.35-7.45) ABG pCO2 (35.0-45.0) mmHg ABG pO2 (80.0-100.0) mmHg ABG HCO3 (22.0-26.0) meq/L ABG O2 Saturation (96.0-97.0) % ABG Base Excess (-2-2.0) Evaristo Test A-a Gradient mmHg O2 Delivery Device Oxygen Flow Rate FiO2 (21.00-100.00) % Sodium (136-145) mEq/L Potassium (3.5-5.1) mEq/L Chloride (98-107) mEq/L Carbon Dioxide (21-32) mEq/L Anion Gap (5-15) BUN (7-18) mg/dL Creatinine (0.55-1.02) mg/dL Est Cr Clr Drug Dosing mL/min Estimated GFR (MDRD) (>60) mL/min BUN/Creatinine Ratio (14-18) Glucose (83-115) mg/dL Lactic Acid (0.4-2.0) mmol/L Calcium (8.5-10.1) mg/dL Ferritin (8-252) ng/ml Total Bilirubin (0.2-1.0) mg/dL AST (15-37) U/L ALT (14-59) U/L Alkaline Phosphatase (46-116) U/L Lactate Dehydrogenase (81-234) U/L Troponin I (0.00-0.056) ng/mL C-Reactive Protein (<1.0) mg/dL Total Protein (6.4-8.2) g/dl Albumin (3.4-5.0) g/dl Globulin gm/dL Albumin/Globulin Ratio (1-2) Urine Color Yellow (Yellow) Urine Appearance Clear (Clear) Urine pH 8.5 H (5.0-8.0) Ur Specific [place] 1.020 (1.005-1.030) Urine Protein 1+ H (Negative) Urine Glucose (UA) Negative (Negative) Urine Ketones 2+ H (Negative) Urine Occult Blood Negative (Negative) Urine Nitrite Negative (Negative) Urine Bilirubin Negative (Negative) Urine Urobilinogen 0.2 (0.2-1.0) Ur Leukocyte Esterase Negative (Negative) Urine RBC 0-5 (0-5) /hpf Urine WBC 0-5 (0-5) /hpf Ur Epithelial Cells 0-5 (0-5) /hpf Urine Bacteria Few (FEW) /hpf Urine Mucus Few (FEW) /hpf SARS Virus RNA (PCR) Positive H (NEGATIVE) Result Diagrams: 07/08/20 09:39 07/08/20 09:35 Sepsis Event Note - Evaluation Sepsis Screening Result: No Definite Risk - Focused Exam Vital Signs: Vital Signs Temp Temp Pulse Pulse Resp BP BP 07/08/20 13:15 98.2 F 78 16 144/98 H 07/08/20 11:15 98.7 F 07/08/20 08:55 98.6 F 100 16 190/82 H Pulse Ox 07/08/20 13:15 97 07/08/20 11:15 07/08/20 08:55 96 - Problem List (1) Macular degeneration SNOMED Code(s): 237093342 ICD Code: H35.30 - UNSPECIFIED MACULAR DEGENERATION Status: Chronic Priority: Medium Current Visit: Yes Qualifiers: Macular degeneration type: unspecified type Eye laterality: unspecified Qualified Code(s): H35.30 - Unspecified macular degeneration (2) PUD (peptic ulcer disease) SNOMED Code(s): 22996983 ICD Code: K27.9 - PEPTIC ULC, SITE UNSP, UNSP AC OR CHR, W/O HEMOR OR PERF Status: Chronic Priority: Medium Current Visit: Yes (3) Hypercholesteremia SNOMED Code(s): 28976451 ICD Code: E78.00 - PURE HYPERCHOLESTEROLEMIA, UNSPECIFIED Status: Chronic Priority: Medium Current Visit: Yes (4) 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 SNOMED Code(s): 12585781 ICD Code: R32 - UNSPECIFIED URINARY INCONTINENCE Status: Chronic Priority: Medium Current Visit: Yes (5) Essential tremor SNOMED Code(s): 806321589 ICD Code: G25.0 - ESSENTIAL TREMOR Status: Chronic Priority: Low Current Visit: Yes (6) Depression SNOMED Code(s): 95933605 ICD Code: F32.9 - MAJOR DEPRESSIVE DISORDER, SINGLE EPISODE, UNSPECIFIED Status: Chronic Priority: Low Current Visit: Yes Qualifiers: Depression Type: unspecified Qualified Code(s): F32.9 - Major depressive disorder, single episode, unspecified (7) Non-Hodgkin lymphoma in remission SNOMED Code(s): 695588682, 481289837 ICD Code: C85.90 - NON-HODGKIN LYMPHOMA, UNSPECIFIED, UNSPECIFIED SITE Status: Chronic Priority: Medium Current Visit: Yes (8) Generalized weakness SNOMED Code(s): 76427315 ICD Code: R53.1 - WEAKNESS Status: Acute Priority: High Current Visit: Yes (9) Nausea SNOMED Code(s): 920113648 ICD Code: R11.0 - NAUSEA Status: Acute Priority: High Current Visit: No (10) Hypertension SNOMED Code(s): 63495908 ICD Code: I10 - ESSENTIAL (PRIMARY) HYPERTENSION Status: Chronic Priority: Medium Current Visit: No Qualifiers: Hypertension type: unspecified Qualified Code(s): I10 - Essential (primary) hypertension (11) Hypothyroidism SNOMED Code(s): 99892846 ICD Code: E03.9 - HYPOTHYROIDISM, UNSPECIFIED Status: Chronic Priority: Medium Current Visit: No Qualifiers: Hypothyroidism type: unspecified Qualified Code(s): E03.9 - Hypothyroidism, unspecified (12) COVID-19 SNOMED Code(s): 385971059 ICD Code: U07.1 - COVID-19 Status: Acute Priority: High Current Visit: Yes Problem List Initiated/Reviewed/Updated: Yes Orders Last 24hrs: Active Orders 24 hr Category Date Time Status Patient Status [ADT] Routine ADT 07/08/20 13:01 Active Blood Pressure Mgt: Sepsis [RC] Q15MX2 Care 07/08/20 09:19 Active Cardiac Monitoring [RC] CONTINUOUS Care 07/08/20 13:53 Ordered Height and Weight [RC] DAILY Care 07/08/20 13:52 Ordered Implanted Port Access [RC] CONTINUOUS Care 07/08/20 09:23 Active Incentive Spirometry [RT Incentive Spirometry] [RC] Care 07/08/20 14:11 Ordered Q1HWA Intake and Output [RC] QSHIFT Care 07/08/20 13:53 Ordered Oxygen Therapy [RC] PRN Care 07/08/20 13:52 Ordered Pulse Oximetry [RC] PRN Care 07/08/20 13:53 Ordered RT Chest Physiotherapy [RC] ASDIRECTED Care 07/08/20 14:11 Ordered Up With Assistance [RC] ASDIRECTED Care 07/08/20 13:52 Ordered VTE/DVT Education [RC] PER UNIT ROUTINE Care 07/08/20 13:52 Ordered Vital Signs [RC] Q4H Care 07/08/20 13:52 Ordered Consult to Case Management/Cruise Counselor [CONS] Cons 07/08/20 13:52 Ordered Routine Consult to Obstetrics Teacher [CONS] Routine Cons 07/08/20 13:52 Ordered Consult to Spiritual Care [CONS] Routine Cons 07/08/20 13:52 Ordered Heart Healthy Diet [DIET] Diet 07/08/20 Dinner Active CBC WITH AUTO DIFF [HEME] AM Lab 07/09/20 05:11 Ordered CBC WITH AUTO DIFF [HEME] AM Lab 07/10/20 05:11 Ordered CBC WITH AUTO DIFF [HEME] AM Lab 07/11/20 05:11 Ordered CBC WITH AUTO DIFF [HEME] AM Lab 07/12/20 05:11 Ordered COMPREHENSIVE METABOLIC PN,CMP [CHEM] AM Lab 07/09/20 05:11 Ordered COMPREHENSIVE METABOLIC PN,CMP [CHEM] AM Lab 07/10/20 05:11 Ordered COMPREHENSIVE METABOLIC PN,CMP [CHEM] AM Lab 07/11/20 05:11 Ordered COMPREHENSIVE METABOLIC PN,CMP [CHEM] AM Lab 07/12/20 05:11 Ordered CRP [C-REACTIVE PROTEIN] [CHEM] Q48H Lab 07/10/20 05:11 Ordered CRP [C-REACTIVE PROTEIN] [CHEM] Q48H Lab 07/12/20 05:11 Ordered CULTURE BLOOD [BC] Stat Lab 07/08/20 09:30 Received CULTURE BLOOD [BC] Stat Lab 07/08/20 09:49 Received D-DIMER QUANTITATIVE [COAG] Q48H Lab 07/10/20 05:11 Ordered D-DIMER QUANTITATIVE [COAG] Q48H Lab 07/12/20 05:11 Ordered FERRITIN [CHEM] Q48H Lab 07/10/20 05:11 Ordered FERRITIN [CHEM] Q48H Lab 07/12/20 05:11 Ordered LACTATE DEHYDROGENASE,LDH [CHEM] Q48H Lab 07/10/20 05:11 Ordered LACTATE DEHYDROGENASE,LDH [CHEM] Q48 Lab 07/12/20 05:11 Ordered MAGNESIUM [CHEM] AM Lab 07/09/20 05:11 Ordered MAGNESIUM [CHEM] AM Lab 07/10/20 05:11 Ordered MAGNESIUM [CHEM] AM Lab 07/11/20 05:11 Ordered MAGNESIUM [CHEM] AM Lab 07/12/20 05:11 Ordered PHOSPHORUS [CHEM] AM Lab 07/09/20 05:11 Ordered Acetaminophen [TylenoL] Med 07/08/20 13:52 Ordered 650 mg PO Q4H PRN Ascorbic Acid [Vitamin C] Med 07/09/20 09:00 Ordered 1,000 mg PO DAILY Brimonidine Tartrate/Timolol [Combigan 0.2%-0.5% Eye Med 07/08/20 21:00 Ordered Drops] 1 drop OP BID Dexlansoprazole [Dexilant] Med 07/09/20 09:00 Ordered 60 mg PO DAILY Docusate Sodium [Colace] Med 07/08/20 21:00 Ordered 100 mg PO BID Enoxaparin [Lovenox] Med 07/09/20 09:00 Ordered 40 mg SUBCUT DAILY Fish Oil/Mineral-3 Fatty Acids [Fish Oil] Med 07/09/20 09:00 Ordered 1 gm PO DAILY Levothyroxine [Synthroid] Med 07/09/20 06:00 Ordered 100 mcg PO ACBREAKFAST Losartan Med 07/09/20 09:00 Ordered 50 mg PO DAILY Mirabegron [Myrbetriq] Med 07/09/20 09:00 Ordered 50 mg PO DAILY Ondansetron [Zofran] Med 07/08/20 13:52 Ordered 4 mg IV Q4H PRN Potassium Chloride [Klor-Con M20] Med 07/08/20 14:07 Once 40 meq PO ONETIME ONE Propranolol [Inderal LA] Med 07/09/20 09:00 Ordered 60 mg PO DAILY Propylene Glycol/PEG 400/Pf [Systane 0.3-0.4% Eye Drop] Med 07/08/20 14:11 Ordered 1 drop OP ASDIRECTED PRN Rosuvastatin Med 07/09/20 09:00 Ordered 5 mg PO DAILY Sertraline [Zoloft] Med 07/08/20 18:00 Ordered 25 mg PO QPM Sodium Chloride 0.9% @ 75 MLS/HR(1000ml Bag) Med 07/08/20 14:30 Ordered Sodium Chloride 0.9% [Normal Saline] 1,000 ml IV ASDIRECTED Sodium Chloride 0.9% [Normal Saline] 1,000 ml Med 07/08/20 09:19 Active IV BOLUS Sodium Chloride 0.9% [Saline Flush] Med 07/08/20 09:19 Active 10 ml FLUSH ASDIRECTED PRN Spironolactone [Aldactone] Med 07/09/20 09:00 Ordered 25 mg PO DAILY Travoprost [Travatan Z] Med 07/08/20 18:00 Ordered 1 ml EYERT QPM Blood Culture x2 Reflex Set [OM.PC] Stat Oth 07/08/20 09:19 Ordered Isolation [COMM] Routine Oth 07/08/20 14:09 Ordered Pulse Oximetry Continuous Monitoring [OM.PC] Routine Oth 07/08/20 13:02 Active Saline Lock Insert [OM.PC] Stat Oth 07/08/20 09:19 Ordered Resuscitation Status Routine Resus Stat 07/08/20 13:52 Ordered EKG 12 Lead [EK] Stat Ther 07/08/20 09:22 Ordered Medication Orders Acetaminophen (Tylenol) 650 mg PO Q4H PRN PRN Reason: Pain (Mild 1-3)/fever Docusate Sodium (Colace) 100 mg PO BID CARTER Enoxaparin Sodium (Lovenox) 40 mg SUBCUT Q24H CARTER Fish Oil (Fish Oil) 1 gm PO DAILY CARTER Sodium Chloride (Normal Saline) 1,000 mls @ 125 mls/hr IV BOLUS ONE; Protocol Stop: 07/08/20 17:18 Last Admin: 07/08/20 09:51 Dose: 125 mls/hr Documented by: SCHMKAT Levothyroxine Sodium (Synthroid) 100 mcg PO ACBREAKFAST CARTER Non-Formulary Medication (Ascorbic Acid [Vitamin C]) 1,000 mg PO DAILY CARTER Non-Formulary Medication (Brimonidine Tartrate/Timolol [Combigan 0.2%-0.5% Eye Drops]) 1 drop OP BID CARTER Non-Formulary Medication (Dexlansoprazole [Dexilant]) 60 mg PO DAILY CARTER Non-Formulary Medication (Losartan) 50 mg PO DAILY CARTER Non-Formulary Medication (Mirabegron [Myrbetriq]) 50 mg PO DAILY CARTER Non-Formulary Medication (Propylene Glycol/Peg 400/Pf [Systane 0.3-0.4% Eye Drop]) 1 drop OP ASDIRECTED PRN PRN Reason: Dry Eyes Non-Formulary Medication (Rosuvastatin) 5 mg PO DAILY CARTER Non-Formulary Medication (Travoprost [Travatan Z]) 1 ml EYERT QPM CARTER Ondansetron HCl (Zofran) 4 mg IV Q4H PRN PRN Reason: Nausea/Vomiting Potassium Chloride (Klor-Con M20) 40 meq PO ONETIME ONE Stop: 07/08/20 15:01 Propranolol HCl (Inderal La) 60 mg PO DAILY CARTER Sertraline HCl (Zoloft) 25 mg PO QPM CARTER Sodium Chloride (Saline Flush) 10 ml FLUSH ASDIRECTED PRN PRN Reason: Keep Vein Open Last Admin: 07/08/20 09:52 Dose: 10 ml Documented by: FLORINDA Spironolactone (Aldactone) 25 mg PO DAILY [facility] Assessment/Plan Comment:: Macular degeneration -continue eye drops PUD (peptic ulcer disease) -continue Dexilant Hypercholesteremia -continue statin 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 -continue Myrbetriq -frequent voiding Essential tremor -continue Propranolol Depression -continue Zoloft Non-Hodgkin lymphoma in remission -monitor labs Generalized weakness -encourage activity Nausea -Zofran prn Hypertension -continue Losartan Hypothyroidism -continue Levothyroxine Covid 19 -monitor for worsening respiratory symptoms, O2 sats -I&O, daily weights, vital signs -incentive spirometry, flutter valve -monitor labs -heart healthy diet -up with nursing assistance in room -Spiritual care -case management for discharge planning -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
[2020-07-08] MEDS ORDERED: Sodium Chloride 0.9% 1,000 ML IV SCH (14:30)
[2020-07-08] MEDS ORDERED: Potassium Chloride 20 MEQ Tab.ER PO ONE (15:00)
[2020-07-08] MEDS: Sertraline 25 MG Tab PO SCH (17:53)
[2020-07-08] MEDS ORDERED: Latanoprost 0.005% Ophth Soln 2.5 ML Bottle EYERT SCH (18:00)
[2020-07-08] MEDS: Acetaminophen 325 MG Tab PO PRN (20:36)
[2020-07-08] MEDS: Latanoprost 0.005% Ophth Soln 2.5 ML Bottle EYERT SCH (20:38)
[2020-07-08] MEDS: Docusate Sodium 100 MG Cap PO SCH (20:38)
[2020-07-08] MEDS: Brimonidine 0.2% Ophth Soln 5 ML Bottle EYEBOTH SCH (20:39)
[2020-07-08] MEDS: Timolol Maleate 0.5% Ophth Soln 5 ML Bottle EYEBOTH SCH (20:39)
[2020-07-08] MEDS ORDERED: Cyclobenzaprine 10 MG Tab PO PRN (21:00)
[2020-07-09] MEDS: Acetaminophen 325 MG Tab PO PRN ×2 (02:25→08:39)
[2020-07-09] MEDS: Ondansetron 4 MG/2 ML SDV IV PRN ×2 (02:25→10:16)
[2020-07-09] MEDS: Pantoprazole 40 MG Tab.CR PO SCH (06:08)
[2020-07-09] MEDS: Levothyroxine 100 MCG Tab PO SCH (06:08)
[2020-07-09] MEDS ORDERED: Magnesium Sulfate/Water 2 GM in Premix Bag 1 BAG IV ONE (07:36)
[2020-07-09] MEDS: Ascorbic Acid 500 MG Tab PO SCH (08:40)
[2020-07-09] MEDS: Propranolol 60 MG Cap.ER PO SCH (08:41)
[2020-07-09] MEDS: Spironolactone 25 MG Tab PO SCH (08:42)
[2020-07-09] MEDS: Docusate Sodium 100 MG Cap PO SCH ×2 (08:42→20:55)
[2020-07-09] MEDS: Fish Oil/Omega-3 Fatty Acids 1 Gm Cap PO SCH (08:42)
[2020-07-09] MEDS: Rosuvastatin 10 MG Tab PO SCH (08:42)
[2020-07-09] MEDS: Brimonidine 0.2% Ophth Soln 5 ML Bottle EYEBOTH SCH ×2 (08:43→20:55)
[2020-07-09] MEDS: Timolol Maleate 0.5% Ophth Soln 5 ML Bottle EYEBOTH SCH ×2 (08:43→20:55)
[2020-07-09] MEDS ORDERED: Sodium Chloride 0.9% 1,000 ML IV SCH ×2 (08:45→11:30)
[2020-07-09] MEDS: Mirabegron [Myrbetriq] 50 MG PO SCH (08:55)
[2020-07-09] MEDS ORDERED: Losartan 25 MG Tab PO SCH ×2 (09:00)
[2020-07-09] MEDS ORDERED: Acetaminophen/Butalbital/Caffeine 325-50-40 MG Tab PO PRN (10:29)
[2020-07-09] MEDS ORDERED: REMDESIVIR 200 MG in Sodium Chloride 0.9% 250 ML IV ONE (12:30)
--- NOTE | 2020-07-09 13:16 | PCM.PN ---
- General Info Date of Service: 07/09/20 Admission Dx/Problem (Free Text): Admission Diagnosis/Problem Admission Diagnosis/Problem Weakness Functional Status: Reports: Urinating, Incentive Spirometry - Review of Systems General: Reports: Fatigue, Other (body aches, headache) HEENT: Reports: Headaches, Other (macular degeneration to right eye) Pulmonary: Reports: Shortness of Breath Cardiovascular: Reports: No Symptoms Gastrointestinal: Reports: Nausea. Denies: Abdominal Pain, Vomiting Genitourinary: Reports: Incontinence. Denies: Frequency, Burning, Pain Musculoskeletal: Reports: Other (generalized body aches) Skin: Reports: No Symptoms Neurological: Reports: Headache. Denies: Confusion, Dizziness Psychiatric: Reports: No Symptoms - Patient Data Vitals - Most Recent: Last Vital Signs Temp 97.7 F 07/09/20 11:03 Pulse 62 07/09/20 11:03 Resp 12 07/09/20 11:01 BP 98/70 07/09/20 10:59 Pulse Ox 96 07/09/20 11:03 Weight - Most Recent: 154 lb I&O - Last 24 Hours: Intake & Output 07/08/20 07/09/20 07/09/20 22:59 06:59 14:59 Intake Total 590 200 320 Output Total 400 500 Balance 190 -300 320 Lab Results Last 24 Hours: Laboratory Results - last 24 hr 07/09/20 07/09/20 07/09/20 Range/Units 06:08 06:08 10:15 WBC 4.54 (3.98-10.04) K/mm3 RBC 4.89 (3.98-5.22) M/mm3 Hgb 14.4 (11.2-15.7) gm/dl Hct 43.4 (34.1-44.9) % MCV 88.8 (79.4-94.8) fl MCH 29.4 (25.6-32.2) pg MCHC 33.2 (32.2-35.5) g/dl RDW Std Deviation 43.1 (36.4-46.3) fL Plt Count 167 L (182-369) K/mm3 MPV 10.7 (9.4-12.3) fl Neut % (Auto) 41.0 (34.0-71.1) % Lymph % (Auto) 27.1 (19.3-51.7) % Bowie % (Auto) 31.3 H (4.7-12.5) % Eos % (Auto) 0.2 L (0.7-5.8) Baso % (Auto) 0.2 (0.1-1.2) % Neut # (Auto) 1.86 (1.56-6.13) K/mm3 Lymph # (Auto) 1.23 (1.18-3.74) K/mm3 Bowie # (Auto) 1.42 H (0.24-0.36) K/mm3 Eos # (Auto) 0.01 L (0.04-0.36) K/mm3 Baso # (Auto) 0.01 (0.01-0.08) K/mm3 Manual Slide Review Abnormal smear Sodium 138 (136-145) mEq/L Potassium 3.9 (3.5-5.1) mEq/L Chloride 101 (98-107) mEq/L Carbon Dioxide 27 (21-32) mEq/L Anion Gap 13.9 (5-15) BUN 10 (7-18) mg/dL Creatinine 0.8 (0.55-1.02) mg/dL Est Cr Clr Drug Dosing 44.85 mL/min Estimated GFR (MDRD) > 60 (>60) mL/min BUN/Creatinine Ratio 12.5 L (14-18) Glucose 109 (83-115) mg/dL Calcium 8.8 (8.5-10.1) mg/dL Phosphorus 3.7 (2.6-4.7) mg/dL Magnesium 1.6 L (1.8-2.4) mg/dl Total Bilirubin 0.4 (0.2-1.0) mg/dL AST 40 H (15-37) U/L ALT 44 (14-59) U/L Alkaline Phosphatase 94 (46-116) U/L Troponin I 0.025 (0.00-0.056) ng/mL NT-Pro-B Natriuret Pep (0-450) pg/mL Total Protein 6.6 (6.4-8.2) g/dl Albumin 3.6 (3.4-5.0) g/dl Globulin 3.0 gm/dL Albumin/Globulin Ratio 1.2 (1-2) 15/ Range/Units 10:15 WBC (3.98-10.04) K/mm3 RBC (3.98-5.22) M/mm3 Hgb (11.2-15.7) gm/dl Hct (34.1-44.9) % MCV (79.4-94.8) fl MCH (25.6-32.2) pg MCHC (32.2-35.5) g/dl RDW Std Deviation (36.4-46.3) fL Plt Count (182-369) K/mm3 MPV (9.4-12.3) fl Neut % (Auto) (34.0-71.1) % Lymph % (Auto) (19.3-51.7) % Bowie % (Auto) (4.7-12.5) % Eos % (Auto) (0.7-5.8) Baso % (Auto) (0.1-1.2) % Neut # (Auto) (1.56-6.13) K/mm3 Lymph # (Auto) (1.18-3.74) K/mm3 Bowie # (Auto) (0.24-0.36) K/mm3 Eos # (Auto) (0.04-0.36) K/mm3 Baso # (Auto) (0.01-0.08) K/mm3 Manual Slide Review Sodium (136-145) mEq/L Potassium (3.5-5.1) mEq/L Chloride (98-107) mEq/L Carbon Dioxide (21-32) mEq/L Anion Gap (5-15) BUN (7-18) mg/dL Creatinine (0.55-1.02) mg/dL Est Cr Clr Drug Dosing mL/min Estimated GFR (MDRD) (>60) mL/min BUN/Creatinine Ratio (14-18) Glucose (83-115) mg/dL Calcium (8.5-10.1) mg/dL Phosphorus (2.6-4.7) mg/dL Magnesium (1.8-2.4) mg/dl Total Bilirubin (0.2-1.0) mg/dL AST (15-37) U/L ALT (14-59) U/L Alkaline Phosphatase (46-116) U/L Troponin I (0.00-0.056) ng/mL NT-Pro-B Natriuret Pep 742 H (0-450) pg/mL Total Protein (6.4-8.2) g/dl Albumin (3.4-5.0) g/dl Globulin gm/dL Albumin/Globulin Ratio (1-2) Bimal Results Last 24 Hours: Microbiology 07/08/20 09:49 Aerobic Blood Culture - Preliminary Blood - Venous - Lab Draw NO GROWTH AFTER 1 DAY Anaerobic Blood Culture - Preliminary NO GROWTH AFTER 1 DAY 07/08/20 09:30 Aerobic Blood Culture - Preliminary Blood - Venous NO GROWTH AFTER 1 DAY Anaerobic Blood Culture - Preliminary NO GROWTH AFTER 1 DAY Med Orders - Current: Current Medications Acetaminophen (Tylenol) 650 mg PO Q4H PRN PRN Reason: Pain (Mild 1-3)/fever Last Admin: 07/09/20 08:39 Dose: 650 mg Documented by: Acetaminophen/Butalbital/Caffeine (Fioricet 325-50-40 Mg) 1 tab PO Q4H PRN PRN Reason: Headache Artificial Tears (Refresh Liquigel 1%) 0 ml EYEBOTH ASDIRECTED PRN PRN Reason: Dry Eyes Ascorbic Acid (Vitamin C) 1,000 mg PO DAILY [facility] Last Admin: 07/09/20 08:40 Dose: 1,000 mg Documented by: Brimonidine Tartrate (Alphagan 0.2% Ophth Soln) 0 ml EYEBOTH BID [facility] Last Admin: 07/09/20 08:43 Dose: 1 drop Documented by: Cyclobenzaprine HCl (Flexeril) 10 mg PO BEDTIME PRN PRN Reason: Muscle Spasm Docusate Sodium (Colace) 100 mg PO BID [facility] Last Admin: 07/09/20 08:42 Dose: 100 mg Documented by: Enoxaparin Sodium (Lovenox) 40 mg SUBCUT Q24H [facility] Fish Oil (Fish Oil) 1 gm PO DAILY [facility] Last Admin: 07/09/20 08:42 Dose: 1 gm Documented by: Sodium Chloride (Normal Saline) 1,000 mls @ 200 mls/hr IV ASDIRECTED [facility] Stop: 07/09/20 16:29 Remdesivir 200 mg/ Sodium (Chloride) 250 mls @ 250 mls/hr IV ONETIME ONE Stop: 07/09/20 13:29 Last Admin: 07/09/20 12:18 Dose: 250 mls/hr Documented by: Latanoprost (Xalatan 0.005% Ophth Soln) 0 ml EYERT BEDTIME [facility] Last Admin: 07/08/20 20:38 Dose: 1 drop Documented by: Levothyroxine Sodium (Synthroid) 100 mcg PO ACBREAKFAST [facility] Last Admin: 07/09/20 06:08 Dose: 100 mcg Documented by: Losartan Potassium (Cozaar) 75 mg PO DAILY [facility] Last Admin: 07/09/20 08:41 Dose: 75 mg Documented by: Ondansetron HCl (Zofran) 4 mg IV Q4H PRN PRN Reason: Nausea/Vomiting Last Admin: 07/09/20 10:16 Dose: 4 mg Documented by: Pantoprazole Sodium (Protonix) 40 mg PO DAILY@0700 [facility] Last Admin: 07/09/20 06:08 Dose: 40 mg Documented by: Mirabegron [ (Myrbetriq] 50 Mg) 0 each PO DAILY [facility] Last Admin: 07/09/20 08:55 Dose: Not Given Documented by: Propranolol HCl (Inderal La) 60 mg PO DAILY [facility] Last Admin: 07/09/20 08:41 Dose: 60 mg Documented by: Rosuvastatin Calcium (Crestor) 5 mg PO DAILY [facility] Last Admin: 07/09/20 08:42 Dose: 5 mg Documented by: Sertraline HCl (Zoloft) 25 mg PO QPM [facility] Last Admin: 07/08/20 17:53 Dose: 25 mg Documented by: Sodium Chloride (Saline Flush) 10 ml FLUSH ASDIRECTED PRN PRN Reason: Keep Vein Open Last Admin: 07/08/20 09:52 Dose: 10 ml Documented by: Spironolactone (Aldactone) 25 mg PO DAILY [facility] Last Admin: 07/09/20 08:42 Dose: 25 mg Documented by: Timolol Maleate (Timoptic 0.5% Ophth Soln) 0 ml EYEBOTH BID [facility] Last Admin: 07/09/20 08:43 Dose: 1 drop Documented by: Discontinued Medications Acetaminophen (Tylenol) 975 mg PO NOW ONE Stop: 07/08/20 11:11 Last Admin: 07/08/20 11:15 Dose: 975 mg Documented by: Sodium Chloride (Normal Saline) 1,000 mls @ 125 mls/hr IV BOLUS ONE; Protocol Stop: 07/08/20 17:18 Last Admin: 07/08/20 09:51 Dose: 125 mls/hr Documented by: Sodium Chloride (Normal Saline) 1,000 mls @ 75 mls/hr IV ASDIRECTED [facility] Magnesium Sulfate 2 gm/ Premix 50 mls @ 25 mls/hr IV ONETIME ONE Stop: 07/09/20 09:35 Last Admin: 07/09/20 08:38 Dose: 25 mls/hr Documented by: Sodium Chloride (Normal Saline) 1,000 mls @ 75 mls/hr IV ASDIRECTED [facility] Last Admin: 07/09/20 10:18 Dose: 75 mls/hr Documented by: Latanoprost (Xalatan 0.005% Ophth Soln) 0 ml EYERT QPM [facility] Losartan Potassium (Cozaar) 50 mg PO DAILY [facility] Non-Formulary Medication (Betamethasone/Propylene Glyc [Betamethasone Dp Aug 0.05% Oin]) 1 applic TOP BID [facility] Ondansetron HCl (Zofran) 4 mg IVPUSH ONETIME ONE Stop: 07/08/20 09:25 Last Admin: 07/08/20 09:52 Dose: 4 mg Documented by: Potassium Chloride (Klor-Con M20) 40 meq PO ONETIME ONE Stop: 07/08/20 15:01 Last Admin: 07/08/20 16:00 Dose: 40 meq Documented by: - Exam Quality Assessment: DVT Prophylaxis. No: Supplemental Oxygen General: Alert, Oriented, Cooperative, Mild Distress HEENT: Pupils Equal Neck: Supple, Trachea Midline. No: No JVD, Lymphadenopathy Lungs: Clear to Auscultation, Normal Respiratory Effort. No: Crackles, Rales, Rhonchi, Wheezing Cardiovascular: Regular Rate, Regular Rhythm, No Murmurs GI/Abdominal Exam: Normal Bowel Sounds, Soft, Non-Tender, No Distention Back Exam: Normal Inspection, Full Range of Motion Extremities: Normal Inspection, Normal Range of Motion, Non-Tender, No Pedal Edema, Normal Capillary Refill Peripheral Pulses: 2+: Radial (L), Radial (R) Skin: Warm, Dry, Intact Neurological: No New Focal Deficit, Normal Speech Psy/Mental Status: Alert, Normal Affect, Normal Mood Sepsis Event Note - Evaluation Sepsis Screening Result: No Definite Risk - Focused Exam Vital Signs: Vital Signs Temp Temp Pulse Pulse Resp BP BP 07/09/20 11:03 97.7 F 62 07/09/20 11:01 97.7 F 12 07/09/20 10:59 80 98/70 07/09/20 10:58 64 124/60 07/09/20 10:25 07/09/20 10:16 69 130/55 L 07/09/20 10:09 68 122/61 07/09/20 10:04 66 124/69 07/09/20 08:41 154/75 H 07/09/20 07:43 98.1 F 20 154/75 H BP Pulse Ox Pulse Ox 07/09/20 11:03 96 07/09/20 11:01 96 07/09/20 10:59 78/42 L 07/09/20 10:58 07/09/20 10:25 94 L 07/09/20 10:16 93 L 07/09/20 10:09 94 L 07/09/20 10:04 07/09/20 08:41 07/09/20 07:43 - Problem List & Annotations (1) Macular degeneration SNOMED Code(s): 996418000 Code(s): H35.30 - UNSPECIFIED MACULAR DEGENERATION Status: Chronic Priority: Medium Current Visit: Yes Qualifiers: Macular degeneration type: unspecified type Eye laterality: unspecified Qualified Code(s): H35.30 - Unspecified macular degeneration (2) PUD (peptic ulcer disease) SNOMED Code(s): 75278290 Code(s): K27.9 - PEPTIC ULC, SITE UNSP, UNSP AC OR CHR, W/O HEMOR OR PERF Status: Chronic Priority: Medium Current Visit: Yes (3) Hypercholesteremia SNOMED Code(s): 39845427 Code(s): E78.00 - PURE HYPERCHOLESTEROLEMIA, UNSPECIFIED Status: Chronic Priority: Medium Current Visit: Yes (4) 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 SNOMED Code(s): 90039853 Code(s): R32 - UNSPECIFIED URINARY INCONTINENCE Status: Chronic Priority: Medium Current Visit: Yes (5) Essential tremor SNOMED Code(s): 520970912 Code(s): G25.0 - ESSENTIAL TREMOR Status: Chronic Priority: Low Current Visit: Yes (6) Depression SNOMED Code(s): 76109592 Code(s): F32.9 - MAJOR DEPRESSIVE DISORDER, SINGLE EPISODE, UNSPECIFIED Status: Chronic Priority: Low Current Visit: Yes Qualifiers: Depression Type: unspecified Qualified Code(s): F32.9 - Major depressive disorder, single episode, unspecified (7) Non-Hodgkin lymphoma in remission SNOMED Code(s): 815829771, 167971062 Code(s): C85.90 - NON-HODGKIN LYMPHOMA, UNSPECIFIED, UNSPECIFIED SITE Status: Chronic Priority: Medium Current Visit: Yes (8) Generalized weakness SNOMED Code(s): 01919372 Code(s): R53.1 - WEAKNESS Status: Acute Priority: High Current Visit: Yes (9) Nausea SNOMED Code(s): 467366903 Code(s): R11.0 - NAUSEA Status: Acute Priority: High Current Visit: No (10) Hypertension SNOMED Code(s): 17227526 Code(s): I10 - ESSENTIAL (PRIMARY) HYPERTENSION Status: Chronic Priority: High Current Visit: No Qualifiers: Hypertension type: unspecified Qualified Code(s): I10 - Essential (primary) hypertension (11) Hypothyroidism SNOMED Code(s): 73978693 Code(s): E03.9 - HYPOTHYROIDISM, UNSPECIFIED Status: Chronic Priority: Medium Current Visit: No Qualifiers: Hypothyroidism type: unspecified Qualified Code(s): E03.9 - Hypothyroidism, unspecified (12) COVID-19 SNOMED Code(s): 105931218 Code(s): U07.1 - COVID-19 Status: Acute Priority: High Current Visit: Yes - Problem List Review Problem List Initiated/Reviewed/Updated: Yes - My Orders Last 24 Hours: My Active Orders 07/08/20 13:52 Oxygen Therapy [RC] PRN Up With Assistance [RC] BID VTE/DVT Education [RC] DAILY Vital Signs [RC] Q4HR Consult to Case Management/Radio Station Engineer [CONS] Routine Consult to Ager Operator [CONS] Routine Consult to Spiritual Care [CONS] Routine Acetaminophen [TylenoL] 650 mg PO Q4H PRN Ondansetron [Zofran] 4 mg IV Q4H PRN Resuscitation Status Routine 07/08/20 13:53 Cardiac Monitoring [RC] CONTINUOUS Intake and Output [RC] 04,16 Pulse Oximetry [RC] PRN 07/08/20 14:09 Isolation [COMM] Routine 07/08/20 14:11 Incentive Spirometry [RT Incentive Spirometry] [RC] Q1HWA RT Chest Physiotherapy [RC] ASDIRECTED Carboxymethylcellulose Sodium [Refresh Liquigel 1%] 0 ml EYEBOTH ASDIRECTED PRN 07/08/20 Dinner Heart Healthy Diet [DIET] 07/08/20 18:00 Sertraline [Zoloft] 25 mg PO QPM 07/08/20 21:00 Brimonidine [Alphagan 0.2% Ophth Soln] 0 ml EYEBOTH BID Docusate Sodium [Colace] 100 mg PO BID timoloL maleate [Timoptic 0.5% Ophth Soln] 0 ml EYEBOTH BID 07/09/20 06:00 Levothyroxine [Synthroid] 100 mcg PO ACBREAKFAST 07/09/20 07:00 Pantoprazole [ProTONIX] 40 mg PO DAILY@0700 07/09/20 09:00 Ascorbic Acid [Vitamin C] 1,000 mg PO DAILY Fish Oil/Kennedy-3 Fatty Acids [Fish Oil] 1 gm PO DAILY Losartan [Cozaar] 75 mg PO DAILY Patient's Own Medication [Ptom] 0 each PO DAILY Propranolol [Inderal LA] 60 mg PO DAILY Rosuvastatin [Crestor] 5 mg PO DAILY Spironolactone [Aldactone] 25 mg PO DAILY 07/09/20 10:29 Acetaminophen/Butalbital/Caff [Fioricet 325-50-40 MG] 1 tab PO Q4H PRN 07/09/20 11:29 OT Evaluation and Treatment [CONS] Routine PT Evaluation and Treatment [CONS] Routine 07/09/20 11:30 Sodium Chloride 0.9% [Normal Saline] 1,000 ml IV ASDIRECTED 07/09/20 11:59 Verify Patient Consent Obtain [RC] ASDIRECTED ABO/RH TYPE [BBK] Routine FRESH FROZEN PLASMA [BBK] Routine Transfuse Fresh Frozen Plasma [COMM] Routine 07/09/20 12:30 Remdesivir (Eua) [Remdesivir (EUA)] 200 mg Sodium Chloride 0.9% [Normal Saline] 250 ml IV ONETIME 07/09/20 14:00 TROPONIN I [CHEM] Timed 07/09/20 15:00 Enoxaparin [Lovenox] 40 mg SUBCUT Q24H 07/10/20 05:11 CBC WITH AUTO DIFF [HEME] AM COMPREHENSIVE METABOLIC PN,CMP [CHEM] AM CRP [C-REACTIVE PROTEIN] [CHEM] Q48H D-DIMER QUANTITATIVE [COAG] Q48H FERRITIN [CHEM] Q48H LACTATE DEHYDROGENASE,LDH [CHEM] Q48H MAGNESIUM [CHEM] AM 07/11/20 05:11 CBC WITH AUTO DIFF [HEME] AM COMPREHENSIVE METABOLIC PN,CMP [CHEM] AM MAGNESIUM [CHEM] AM 07/12/20 05:11 CBC WITH AUTO DIFF [HEME] AM COMPREHENSIVE METABOLIC PN,CMP [CHEM] AM CRP [C-REACTIVE PROTEIN] [CHEM] Q48H D-DIMER QUANTITATIVE [COAG] Q48H FERRITIN [CHEM] Q48H LACTATE DEHYDROGENASE,LDH [CHEM] Q48H MAGNESIUM [CHEM] AM - Assessment Assessment:: Assessment:: 07/09/2020 COVID 19 weaker today with increased complaints of headache pain and generalized aches not relieved by Tylenol. Rapid response called on the patient today when she was up to the bathroom to void. The nurse reported that the patient ambulated to the bathroom and when she sat down on the toilet, she then complained of feeling dizzy and nauseated and then slumped to her right side. Initially not arousable to voice, but then slowly came around. TLM showed 3 sec of bigeminal pvc's with a rate of 85. Once patient was arousable, she then had a small amount of emesis. Rapid response team assisted her back into bed in the supine position and the patient reported feeling better. EKG reveals an ectopic atrial rhythm without ST elevation or depression. Rate of 66. Pt is now requiring 1 liter of O2 per nasal cannula for O2 sats of 87 on room air. Troponin 0.025. BNP 742. Pt is orthostatic 124/60 supine, 78/42 standing. Pt will receive 1 liter of NS at a rate of 200ml/hr. Will reassess after liter in. Remdesivir to be started due to the patient requiring O2. Convalescent plasma ordered. Vital signs: Blood pressure 124/60, heart rate 81, respiratory rate 12, pulse ox 96% on 1 liter per nasal cannula Lab results WBC 4.54 proBNP 742 -Trop 0.025 -Platelet down 172-167 -K+ up from 3.4-3.9 -Mg 1.6 received 2gm MG IV -GFR >60 PLAN Remdesivir day 1. Spoke with patient regarding starting Remdesivir infusion. Discussed the risks and the benefits including kidney and liver injury and patient is agreeable to receiving infusion. daily weights strict I&O Convalescent Plasma ordered to be transfused tomorrow once it is available as we do not have this in the hospital. Fiorcet for headache pain Continue O2 supplementation for goal O2 sat above 92% Incentive spirometer repeat Troponin. Renally dose medications Repeat labs as needed Physical therapy/Occupational therapy for strengthening and plan for dc to home. -If platelets continue to decrease, will dc lovenox and start heparin. Code Status: DNR/DNI GI: not warranted Plan for patient to be here for five days due to Remdesivir therapy. Continue O2 therapy. Therapies to see patient for strengthening and discharge planning as patient is not safe to go home due to weakness. 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 -continue Myrbetriq -frequent voiding Essential tremor -continue Propranolol Depression -continue Zoloft Non-Hodgkin lymphoma in remission -monitor labs Generalized weakness -encourage activity -PT/OT to eval and treat for strengthening for dc planning Nausea -Zofran prn Hypertension -continue losartan Hypothyroidism -continue Levothyroxine Covid 19 -monitor for worsening respiratory symptoms, O2 sats -I&O, daily weights, vital signs -incentive spirometry, flutter valve -monitor labs -heart healthy diet -up with nursing assistance in room -Spiritual care -case management for discharge planning -equal opportunity assistant consult for nutritional needs -telemetry -Remdesivir -NS@200ml/hr x 1 liter, then NS@75ml/hr. -O2 as needed to maintain O2 sats >92% -Convalescent plasma ordered
[2020-07-09] MEDS ORDERED: Enoxaparin 40 MG/0.4 ML Syringe SUBCUT SCH (15:00)
[2020-07-09] MEDS ORDERED: Sodium Chloride 0.9% 250 ML IV SCH (17:00)
[2020-07-09] MEDS: Sertraline 25 MG Tab PO SCH (17:52)
[2020-07-09] MEDS ORDERED: hydrALAZINE 20 MG/ML SDV IVPUSH PRN (19:42)
[2020-07-09] MEDS: Latanoprost 0.005% Ophth Soln 2.5 ML Bottle EYERT SCH (20:55)
[2020-07-10] MEDS ORDERED: traZODone 50 MG Tab PO ONE (00:02)
[2020-07-10] MEDS: Ondansetron 4 MG/2 ML SDV IV PRN (01:10)
[2020-07-10] MEDS ORDERED: LORazepam 1 MG Tab PO ONE (01:58)
[2020-07-10] MEDS: Pantoprazole 40 MG Tab.CR PO SCH (06:15)
[2020-07-10] MEDS: Levothyroxine 100 MCG Tab PO SCH (06:16)
[2020-07-10] MEDS: Fish Oil/Omega-3 Fatty Acids 1 Gm Cap PO SCH (09:46)
[2020-07-10] MEDS: Docusate Sodium 100 MG Cap PO SCH ×2 (09:46→20:28)
[2020-07-10] MEDS: Ascorbic Acid 500 MG Tab PO SCH (09:46)
[2020-07-10] MEDS: Propranolol 60 MG Cap.ER PO SCH ×2 (09:47→10:12)
[2020-07-10] MEDS: Timolol Maleate 0.5% Ophth Soln 5 ML Bottle EYEBOTH SCH ×2 (09:52→20:27)
[2020-07-10] MEDS: Brimonidine 0.2% Ophth Soln 5 ML Bottle EYEBOTH SCH ×2 (09:54→20:27)
[2020-07-10] MEDS: Enoxaparin 40 MG/0.4 ML Syringe SUBCUT SCH (09:55)
[2020-07-10] MEDS: Rosuvastatin 10 MG Tab PO SCH (09:55)
[2020-07-10] MEDS: Mirabegron [Myrbetriq] 50 MG PO SCH (09:56)
[2020-07-10] MEDS ORDERED: Magnesium Sulfate/Water 2 GM in Premix Bag 1 BAG IV ONE (10:00)
[2020-07-10] MEDS: Spironolactone 25 MG Tab PO SCH (10:11)
[2020-07-10] MEDS: Losartan 100 MG Tab PO SCH (10:12)
[2020-07-10] MEDS: Potassium Chloride 20 MEQ Tab.ER PO SCH ×2 (10:16→20:28)
--- NOTE | 2020-07-10 11:51 | PCM.PN ---
- General Info Date of Service: 07/10/20 Admission Dx/Problem (Free Text): Admission Diagnosis/Problem Admission Diagnosis/Problem Weakness Functional Status: Reports: Incentive Spirometry. Denies: Ambulating - Review of Systems General: Reports: Weakness, Fatigue. Denies: Fever, Appetite (appetite is poor=program professional is consulting regarding supplementation) HEENT: Reports: Headaches (still having headaches, fiorcet ordered yesterday) Pulmonary: Reports: No Symptoms (pt no longer on O2) Cardiovascular: Reports: No Symptoms. Denies: Chest Pain, Palpitations, Orthopnea, Edema Gastrointestinal: Reports: Decreased Appetite, Nausea. Denies: Abdominal Pain, Vomiting Genitourinary: Reports: Incontinence (chronic urinary incontinence) Musculoskeletal: Reports: No Symptoms Skin: Reports: No Symptoms Neurological: Reports: No Symptoms Psychiatric: Reports: No Symptoms - Patient Data Vitals - Most Recent: Last Vital Signs Temp 97.5 F 07/10/20 03:14 Pulse 88 07/10/20 03:14 Resp 18 07/10/20 03:14 BP 105/53 L 07/10/20 10:12 Pulse Ox 92 L 07/10/20 03:14 Weight - Most Recent: 155 lb I&O - Last 24 Hours: Intake & Output 07/09/20 07/10/20 07/10/20 22:59 06:59 14:59 Intake Total 2070 200 Output Total 400 1250 Balance 1670 -1050 Lab Results Last 24 Hours: Laboratory Results - last 24 hr 07/09/20 07/09/20 07/09/20 Range/Units 06:08 14:32 17:05 WBC (3.98-10.04) K/mm3 RBC (3.98-5.22) M/mm3 Hgb (11.2-15.7) gm/dl Hct (34.1-44.9) % MCV (79.4-94.8) fl MCH (25.6-32.2) pg MCHC (32.2-35.5) g/dl RDW Std Deviation (36.4-46.3) fL Plt Count (182-369) K/mm3 MPV (9.4-12.3) fl Neut % (Auto) (34.0-71.1) % Lymph % (Auto) (19.3-51.7) % Cole % (Auto) (4.7-12.5) % Eos % (Auto) (0.7-5.8) Baso % (Auto) (0.1-1.2) % Neut # (Auto) (1.56-6.13) K/mm3 Lymph # (Auto) (1.18-3.74) K/mm3 Cole # (Auto) (0.24-0.36) K/mm3 Eos # (Auto) (0.04-0.36) K/mm3 Baso # (Auto) (0.01-0.08) K/mm3 D-Dimer, Quantitative (0.19-0.50) mg/L Sodium (136-145) mEq/L Potassium (3.5-5.1) mEq/L Chloride (98-107) mEq/L Carbon Dioxide (21-32) mEq/L Anion Gap (5-15) BUN (7-18) mg/dL Creatinine (0.55-1.02) mg/dL Est Cr Clr Drug Dosing mL/min Estimated GFR (MDRD) (>60) mL/min BUN/Creatinine Ratio (14-18) Glucose (83-115) mg/dL Calcium (8.5-10.1) mg/dL Magnesium (1.8-2.4) mg/dl Ferritin (8-252) ng/ml Total Bilirubin (0.2-1.0) mg/dL AST (15-37) U/L ALT (14-59) U/L Alkaline Phosphatase (46-116) U/L Lactate Dehydrogenase (81-234) U/L Troponin I 0.032 0.030 (0.00-0.056) ng/mL C-Reactive Protein (<1.0) mg/dL NT-Pro-B Natriuret Pep (0-450) pg/mL Total Protein (6.4-8.2) g/dl Albumin (3.4-5.0) g/dl Globulin gm/dL Albumin/Globulin Ratio (1-2) Blood Type O POSITIVE 07/10/20 07/10/20 07/10/20 Range/Units 02:05 02:05 02:05 WBC (3.98-10.04) K/mm3 RBC (3.98-5.22) M/mm3 Hgb (11.2-15.7) gm/dl Hct (34.1-44.9) % MCV (79.4-94.8) fl MCH (25.6-32.2) pg MCHC (32.2-35.5) g/dl RDW Std Deviation (36.4-46.3) fL Plt Count (182-369) K/mm3 MPV (9.4-12.3) fl Neut % (Auto) (34.0-71.1) % Lymph % (Auto) (19.3-51.7) % Cole % (Auto) (4.7-12.5) % Eos % (Auto) (0.7-5.8) Baso % (Auto) (0.1-1.2) % Neut # (Auto) (1.56-6.13) K/mm3 Lymph # (Auto) (1.18-3.74) K/mm3 Cole # (Auto) (0.24-0.36) K/mm3 Eos # (Auto) (0.04-0.36) K/mm3 Baso # (Auto) (0.01-0.08) K/mm3 D-Dimer, Quantitative 0.82 H (0.19-0.50) mg/L Sodium (136-145) mEq/L Potassium (3.5-5.1) mEq/L Chloride (98-107) mEq/L Carbon Dioxide (21-32) mEq/L Anion Gap (5-15) BUN (7-18) mg/dL Creatinine (0.55-1.02) mg/dL Est Cr Clr Drug Dosing mL/min Estimated GFR (MDRD) (>60) mL/min BUN/Creatinine Ratio (14-18) Glucose (83-115) mg/dL Calcium (8.5-10.1) mg/dL Magnesium 1.7 L (1.8-2.4) mg/dl Ferritin 69 (8-252) ng/ml Total Bilirubin (0.2-1.0) mg/dL AST (15-37) U/L ALT (14-59) U/L Alkaline Phosphatase (46-116) U/L Lactate Dehydrogenase 243 H (81-234) U/L Troponin I (0.00-0.056) ng/mL C-Reactive Protein 0.9 (<1.0) mg/dL NT-Pro-B Natriuret Pep (0-450) pg/mL Total Protein (6.4-8.2) g/dl Albumin (3.4-5.0) g/dl Globulin gm/dL Albumin/Globulin Ratio (1-2) Blood Type 07/10/20 07/10/20 07/10/20 Range/Units 02:05 02:05 02:05 WBC 10.03 (3.98-10.04) K/mm3 RBC 4.74 (3.98-5.22) M/mm3 Hgb 14.2 (11.2-15.7) gm/dl Hct 42.2 (34.1-44.9) % MCV 89.0 (79.4-94.8) fl MCH 30.0 (25.6-32.2) pg MCHC 33.6 (32.2-35.5) g/dl RDW Std Deviation 43.4 (36.4-46.3) fL Plt Count 171 L (182-369) K/mm3 MPV 10.7 (9.4-12.3) fl Neut % (Auto) 74.9 H (34.0-71.1) % Lymph % (Auto) 11.6 L (19.3-51.7) % Cole % (Auto) 13.2 H (4.7-12.5) % Eos % (Auto) 0 L (0.7-5.8) Baso % (Auto) 0.1 (0.1-1.2) % Neut # (Auto) 7.52 H (1.56-6.13) K/mm3 Lymph # (Auto) 1.16 L (1.18-3.74) K/mm3 Cole # (Auto) 1.32 H (0.24-0.36) K/mm3 Eos # (Auto) 0.00 L (0.04-0.36) K/mm3 Baso # (Auto) 0.01 (0.01-0.08) K/mm3 D-Dimer, Quantitative (0.19-0.50) mg/L Sodium 135 L (136-145) mEq/L Potassium 3.3 L (3.5-5.1) mEq/L Chloride 98 (98-107) mEq/L Carbon Dioxide 25 (21-32) mEq/L Anion Gap 15.3 H (5-15) BUN 11 (7-18) mg/dL Creatinine 0.7 (0.55-1.02) mg/dL Est Cr Clr Drug Dosing 51.26 mL/min Estimated GFR (MDRD) > 60 (>60) mL/min BUN/Creatinine Ratio 15.7 (14-18) Glucose 128 H (83-115) mg/dL Calcium 8.3 L (8.5-10.1) mg/dL Magnesium (1.8-2.4) mg/dl Ferritin (8-252) ng/ml Total Bilirubin 0.4 (0.2-1.0) mg/dL AST 35 (15-37) U/L ALT 42 (14-59) U/L Alkaline Phosphatase 94 (46-116) U/L Lactate Dehydrogenase (81-234) U/L Troponin I < 0.017 (0.00-0.056) ng/mL C-Reactive Protein (<1.0) mg/dL NT-Pro-B Natriuret Pep 344 (0-450) pg/mL Total Protein 6.9 (6.4-8.2) g/dl Albumin 3.7 (3.4-5.0) g/dl Globulin 3.2 gm/dL Albumin/Globulin Ratio 1.2 (1-2) Blood Type Bimal Results Last 24 Hours: Microbiology 07/08/20 09:49 Aerobic Blood Culture - Preliminary Blood - Venous - Lab Draw NO GROWTH AFTER 2 DAYS Anaerobic Blood Culture - Preliminary NO GROWTH AFTER 2 DAYS 07/08/20 09:30 Aerobic Blood Culture - Preliminary Blood - Venous NO GROWTH AFTER 2 DAYS Anaerobic Blood Culture - Preliminary NO GROWTH AFTER 2 DAYS Med Orders - Current: Current Medications Acetaminophen (Tylenol) 650 mg PO Q4H PRN PRN Reason: Pain (Mild 1-3)/fever Last Admin: 07/09/20 08:39 Dose: 650 mg Documented by: Acetaminophen/Butalbital/Caffeine (Fioricet 325-50-40 Mg) 1 tab PO Q4H PRN PRN Reason: Headache Artificial Tears (Refresh Liquigel 1%) 0 ml EYEBOTH ASDIRECTED PRN PRN Reason: Dry Eyes Ascorbic Acid (Vitamin C) 1,000 mg PO DAILY [facility] Last Admin: 07/10/20 09:46 Dose: 1,000 mg Documented by: Brimonidine Tartrate (Alphagan 0.2% Ophth Soln) 0 ml EYEBOTH BID [facility] Last Admin: 07/10/20 09:54 Dose: 1 drop Documented by: Cyclobenzaprine HCl (Flexeril) 10 mg PO BEDTIME PRN PRN Reason: Muscle Spasm Docusate Sodium (Colace) 100 mg PO BID [facility] Last Admin: 07/10/20 09:46 Dose: 100 mg Documented by: Enoxaparin Sodium (Lovenox) 40 mg SUBCUT DAILY [facility] Last Admin: 07/10/20 09:55 Dose: 40 mg Documented by: Fish Oil (Fish Oil) 1 gm PO DAILY [facility] Last Admin: 07/10/20 09:46 Dose: 1 gm Documented by: Hydralazine HCl (Apresoline) 10 mg IVPUSH Q4H PRN PRN Reason: Hypertension Last Admin: 07/10/20 00:28 Dose: 10 mg Documented by: Remdesivir 100 mg/ Sodium (Chloride) 100 mls @ 100 mls/hr IV Q24H [facility] Stop: 07/13/20 12:59 Sodium Chloride (Normal Saline) 250 mls @ 100 mls/hr IV ASDIRECTED [facility] Last Admin: 07/09/20 17:40 Dose: 100 mls/hr Documented by: Magnesium Sulfate 2 gm/ Premix 50 mls @ 25 mls/hr IV ONETIME ONE Stop: 07/10/20 11:59 Last Admin: 07/10/20 10:19 Dose: 25 mls/hr Documented by: Latanoprost (Xalatan 0.005% Ophth Soln) 0 ml EYERT BEDTIME [facility] Last Admin: 07/09/20 20:55 Dose: 1 drop Documented by: Levothyroxine Sodium (Synthroid) 100 mcg PO ACBREAKFAST [facility] Last Admin: 07/10/20 06:16 Dose: 100 mcg Documented by: Losartan Potassium (Cozaar) 50 mg PO DAILY [facility] Last Admin: 07/10/20 10:12 Dose: Not Given Documented by: Ondansetron HCl (Zofran) 4 mg IV Q4H PRN PRN Reason: Nausea/Vomiting Last Admin: 07/10/20 01:10 Dose: 4 mg Documented by: Pantoprazole Sodium (Protonix) 40 mg PO DAILY@0700 [facility] Last Admin: 07/10/20 06:15 Dose: 40 mg Documented by: Mirabegron [ (Myrbetriq] 50 Mg) 0 each PO DAILY [facility] Last Admin: 07/10/20 09:56 Dose: Not Given Documented by: Potassium Chloride (Klor-Con M20) 40 meq PO BID [facility] Stop: 07/11/20 09:01 Last Admin: 07/10/20 10:16 Dose: 40 meq Documented by: Propranolol HCl (Inderal La) 60 mg PO DAILY [facility] Last Admin: 07/10/20 10:12 Dose: 60 mg Documented by: Rosuvastatin Calcium (Crestor) 5 mg PO DAILY [facility] Last Admin: 07/10/20 09:55 Dose: 5 mg Documented by: Sertraline HCl (Zoloft) 25 mg PO QPM [facility] Last Admin: 07/09/20 17:52 Dose: 25 mg Documented by: Sodium Chloride (Saline Flush) 10 ml FLUSH ASDIRECTED PRN PRN Reason: Keep Vein Open Last Admin: 07/08/20 09:52 Dose: 10 ml Documented by: Spironolactone (Aldactone) 25 mg PO DAILY [facility] Last Admin: 07/10/20 10:11 Dose: 25 mg Documented by: Timolol Maleate (Timoptic 0.5% Ophth Soln) 0 ml EYEBOTH BID [facility] Last Admin: 07/10/20 09:52 Dose: 1 drop Documented by: Discontinued Medications Acetaminophen (Tylenol) 975 mg PO NOW ONE Stop: 07/08/20 11:11 Last Admin: 07/08/20 11:15 Dose: 975 mg Documented by: Enoxaparin Sodium (Lovenox) 40 mg SUBCUT Q24H [facility] Stop: 07/09/20 18:00 Last Admin: 07/09/20 16:11 Dose: 40 mg Documented by: Sodium Chloride (Normal Saline) 1,000 mls @ 125 mls/hr IV BOLUS ONE; Protocol Stop: 07/08/20 17:18 Last Admin: 07/08/20 09:51 Dose: 125 mls/hr Documented by: Sodium Chloride (Normal Saline) 1,000 mls @ 75 mls/hr IV ASDIRECTED [facility] Magnesium Sulfate 2 gm/ Premix 50 mls @ 25 mls/hr IV ONETIME ONE Stop: 07/09/20 09:35 Last Admin: 07/09/20 08:38 Dose: 25 mls/hr Documented by: Sodium Chloride (Normal Saline) 1,000 mls @ 75 mls/hr IV ASDIRECTED [facility] Last Admin: 07/09/20 10:18 Dose: 75 mls/hr Documented by: Sodium Chloride (Normal Saline) 1,000 mls @ 200 mls/hr IV ASDIRECTED [facility] Stop: 07/09/20 16:29 Last Admin: 07/09/20 16:12 Dose: 75 mls/hr Documented by: Remdesivir 200 mg/ Sodium (Chloride) 250 mls @ 250 mls/hr IV ONETIME ONE Stop: 07/09/20 13:29 Last Admin: 07/09/20 12:18 Dose: 250 mls/hr Documented by: Latanoprost (Xalatan 0.005% Ophth Soln) 0 ml EYERT QPM [facility] Lorazepam (Ativan) 1 mg PO ONETIME ONE Stop: 07/10/20 01:59 Last Admin: 07/10/20 02:07 Dose: 1 mg Documented by: Losartan Potassium (Cozaar) 50 mg PO DAILY [facility] Losartan Potassium (Cozaar) 75 mg PO DAILY [facility] Last Admin: 07/09/20 08:41 Dose: 75 mg Documented by: Non-Formulary Medication (Betamethasone/Propylene Glyc [Betamethasone Dp Aug 0.05% Oin]) 1 applic TOP BID [facility] Ondansetron HCl (Zofran) 4 mg IVPUSH ONETIME ONE Stop: 07/08/20 09:25 Last Admin: 07/08/20 09:52 Dose: 4 mg Documented by: Potassium Chloride (Klor-Con M20) 40 meq PO ONETIME ONE Stop: 07/08/20 15:01 Last Admin: 07/08/20 16:00 Dose: 40 meq Documented by: Trazodone HCl (Trazodone) 50 mg PO ONETIME ONE Stop: 07/10/20 00:03 Last Admin: 07/10/20 00:19 Dose: 50 mg Documented by: - Exam Quality Assessment: DVT Prophylaxis. No: Supplemental Oxygen General: Alert, Oriented (is groggy due to getting ativan this morning and very little sleep last evening) HEENT: Pupils Equal, Pupils Reactive Neck: Supple, Trachea Midline, No JVD. No: Lymphadenopathy Lungs: Normal Respiratory Effort, Crackles (fine crackles noted to left posterior lower lobe) Cardiovascular: Regular Rate, Regular Rhythm. No: No Murmurs GI/Abdominal Exam: Normal Bowel Sounds, Soft, Non-Tender, No Distention Back Exam: Normal Inspection, Full Range of Motion Extremities: Normal Inspection, Normal Range of Motion, Non-Tender, No Pedal Edema, Normal Capillary Refill Peripheral Pulses: 2+: Radial (L), Radial (R), Dorsalis Pedis (L), Dorsalis Pedis (R) Skin: Warm, Dry, Intact Neurological: No New Focal Deficit Psy/Mental Status: Alert, Normal Affect, Normal Mood Sepsis Event Note - Evaluation Sepsis Screening Result: No Definite Risk - Focused Exam Vital Signs: Vital Signs Temp Pulse Resp BP Pulse Ox 07/10/20 10:12 105/53 L 07/10/20 03:14 97.5 F 88 18 145/48 H 92 L 07/10/20 01:53 148/76 H 07/10/20 01:33 98.4 F 87 20 188/71 H 94 L 07/10/20 00:25 98.2 F 77 20 204/88 H 92 L - Problem List & Annotations (1) Macular degeneration SNOMED Code(s): 463646474 Code(s): H35.30 - UNSPECIFIED MACULAR DEGENERATION Status: Chronic Priority: Medium Current Visit: Yes Qualifiers: Macular degeneration type: unspecified type Eye laterality: unspecified Qualified Code(s): H35.30 - Unspecified macular degeneration (2) PUD (peptic ulcer disease) SNOMED Code(s): 81609876 Code(s): K27.9 - PEPTIC ULC, SITE UNSP, UNSP AC OR CHR, W/O HEMOR OR PERF Status: Chronic Priority: Medium Current Visit: Yes (3) Hypercholesteremia SNOMED Code(s): 36653832 Code(s): E78.00 - PURE HYPERCHOLESTEROLEMIA, UNSPECIFIED Status: Chronic Priority: Medium Current Visit: Yes (4) 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 SNOMED Code(s): 79834207 Code(s): R32 - UNSPECIFIED URINARY INCONTINENCE Status: Chronic Priority: Medium Current Visit: Yes (5) Essential tremor SNOMED Code(s): 227040066 Code(s): G25.0 - ESSENTIAL TREMOR Status: Chronic Priority: Low Current Visit: Yes (6) Depression SNOMED Code(s): 52155882 Code(s): F32.9 - MAJOR DEPRESSIVE DISORDER, SINGLE EPISODE, UNSPECIFIED Status: Chronic Priority: Low Current Visit: Yes Qualifiers: Depression Type: unspecified Qualified Code(s): F32.9 - Major depressive disorder, single episode, unspecified (7) Non-Hodgkin lymphoma in remission SNOMED Code(s): 335412788, 997989411 Code(s): C85.90 - NON-HODGKIN LYMPHOMA, UNSPECIFIED, UNSPECIFIED SITE Status: Chronic Priority: Medium Current Visit: Yes (8) Generalized weakness SNOMED Code(s): 14926873 Code(s): R53.1 - WEAKNESS Status: Acute Priority: High Current Visit: Yes (9) Nausea SNOMED Code(s): 955771393 Code(s): R11.0 - NAUSEA Status: Acute Priority: High Current Visit: No (10) Hypertension SNOMED Code(s): 60885976 Code(s): I10 - ESSENTIAL (PRIMARY) HYPERTENSION Status: Chronic Priority: High Current Visit: No Qualifiers: Hypertension type: unspecified Qualified Code(s): I10 - Essential (primary) hypertension (11) Hypothyroidism SNOMED Code(s): 00004070 Code(s): E03.9 - HYPOTHYROIDISM, UNSPECIFIED Status: Chronic Priority: Medium Current Visit: No Qualifiers: Hypothyroidism type: unspecified Qualified Code(s): E03.9 - Hypothyroidism, unspecified (12) COVID-19 SNOMED Code(s): 961377975 Code(s): U07.1 - COVID-19 Status: Acute Priority: High Current Visit: Yes - Problem List Review Problem List Initiated/Reviewed/Updated: Yes - My Orders Last 24 Hours: My Active Orders 07/09/20 11:29 OT Evaluation and Treatment [CONS] Routine PT Evaluation and Treatment [CONS] Routine 07/09/20 11:59 Verify Patient Consent Obtain [RC] ASDIRECTED Transfuse Fresh Frozen Plasma [COMM] Routine 07/09/20 Dinner Heart Healthy Diet [DIET] 07/10/20 09:00 Enoxaparin [Lovenox] 40 mg SUBCUT DAILY Losartan [Cozaar] 50 mg PO DAILY 07/10/20 10:00 Magnesium Sulfate/Water [Magnesium Sulfate in Water Premix] 2 gm Premix Bag 1 bag IV ONETIME Potassium Chloride [Klor-Con M20] 40 meq PO BID 07/11/20 05:11 CBC WITH AUTO DIFF [HEME] AM COMPREHENSIVE METABOLIC PN,CMP [CHEM] AM MAGNESIUM [CHEM] AM 07/12/20 05:11 CBC WITH AUTO DIFF [HEME] AM COMPREHENSIVE METABOLIC PN,CMP [CHEM] AM CRP [C-REACTIVE PROTEIN] [CHEM] Q48H D-DIMER QUANTITATIVE [COAG] Q48H FERRITIN [CHEM] Q48H LACTATE DEHYDROGENASE,LDH [CHEM] Q48H MAGNESIUM [CHEM] AM - Assessment Assessment:: Assessment:: 07/09/2020 COVID 19 weaker today with increased complaints of headache pain and generalized aches not relieved by Tylenol. Rapid response called on the patient today when she was up to the bathroom to void. The nurse reported that the patient ambulated to the bathroom and when she sat down on the toilet, she then complained of feeling dizzy and nauseated and then slumped to her right side. Initially not arousable to voice, but then slowly came around. TLM showed 3 sec of bigeminal pvc's with a rate of 85. Once patient was arousable, she then had a small amount of emesis. Rapid response team assisted her back into bed in the supine position and the patient reported feeling better. EKG reveals an ectopic atrial rhythm without ST elevation or depression. Rate of 66. Pt is now requiring 1 liter of O2 per nasal cannula for O2 sats of 87 on room air. Troponin 0.025. BNP 742. Pt is orthostatic 124/60 supine, 78/42 standing. Pt will receive 1 liter of NS at a rate of 200ml/hr. Will reassess after liter in. Remdesivir to be started due to the patient requiring O2. Convalescent plasma ordered. Vital signs: Blood pressure 124/60, heart rate 81, respiratory rate 12, pulse ox 96% on 1 liter per nasal cannula Lab results WBC 4.54 proBNP 742 -Trop 0.025 -Platelet down 172-167 -K+ up from 3.4-3.9 -Mg 1.6 received 2gm MG IV -GFR >60 PLAN Remdesivir day 1. Spoke with patient regarding starting Remdesivir infusion. Discussed the risks and the benefits including kidney and liver injury and patient is agreeable to receiving infusion. daily weights strict I&O Convalescent Plasma ordered to be transfused tomorrow once it is available as we do not have this in the hospital. Fiorcet for headache pain Continue O2 supplementation for goal O2 sat above 92% Incentive spirometer repeat Troponin. Renally dose medications Repeat labs as needed Physical therapy/Occupational therapy for strengthening and plan for dc to home. -If platelets continue to decrease, will dc lovenox and start heparin. Code Status: DNR/DNI GI: not warranted Plan for patient to be here for five days due to Remdesivir therapy. Continue O2 therapy. Therapies to see patient for strengthening and discharge planning as patient is not safe to go home due to weakness. 07/10/2020 COVID 19 lethargic today. Pt did not sleep much last night. Received ativan early this morning. Remdesivir day 2. -received 1 unit of convalescent plasma last evening. Per Dr. Ayala, the patient had a hypertensive episode shortly into the transfusion. Transfusion was stopped and then resumed about an hour later and the patient tolerated it. Early this morning, the patient developed shortness of breath and chest pain. Chest pain resolved. Troponin <0.017. Pt was then given Ativan and this seemed to resolve her symptoms. -on room air Vital signs: Blood pressure 112/65, heart rate 86, respiratory rate 18, pulse ox 94% on room air. Lab results WBC 10.03 proBNP 742 -Trop <0.017 -Platelet up to 171 from 167 -K+ down from 3.9 to 3.3 -Mg 1.7 from 1.6 -GFR >60 -Cre 0.7 -D-dimer 0.82 from 0.65 -LDH from 237 to 243 -CRP 0.9 -ProBNP 742 down to 344 PLAN Remdesivir day 2. daily weights strict I&O Convalescent plasma 1 unit given Fiorcet for headache pain Continue O2 supplementation for goal O2 sat above 92% Incentive spirometer Oral potassium supplementation -IV magnesium infusion Renally dose medications Repeat labs as needed Physical therapy/Occupational therapy for strengthening and plan for dc to home. Code Status: DNR/DNI GI: not warranted Plan for patient to be here for four more days due to Remdesivir therapy. Continue O2 therapy as needed. PT/OT recommending pt be discharged to SNF. Case management and social media intern to assist with placement upon discharge. 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 -continue Myrbetriq -frequent voiding Essential tremor -continue Propranolol Depression -continue Zoloft Non-Hodgkin lymphoma in remission -monitor labs Generalized weakness -encourage activity -PT/OT to eval and treat for strengthening for dc planning Nausea -Zofran prn Hypertension -continue losartan Hypothyroidism -continue Levothyroxine Covid 19 -monitor for worsening respiratory symptoms, O2 sats -I&O, daily weights, vital signs -incentive spirometry, flutter valve -monitor labs -heart healthy diet -up with nursing assistance in room -Spiritual care -case management for discharge planning -program professional consult for nutritional needs -telemetry -Remdesivir day 2 -O2 as needed to maintain O2 sats >92% -pain management
--- NOTE | 2020-07-10 12:56 | CR ---
Chest: Frontal view of the chest was obtained utilizing portable technique. Comparison: Prior chest x-ray of 07/08/20. Heart size and mediastinum are within normal limits. Slight increasing density within the right medial lung base most likely representing accentuation of lung markings from rotation. Lungs show no definite acute parenchymal change. Scoliosis is present within the spine with previous lumbar spine surgery. Right-sided infusion port is seen. Impression: 1. Increasing density within medial right lung base most likely accentuation of the lower lobe vessels due to rotation. 2. Other findings as noted above. Nothing acute is definitely appreciated. Diagnostic code #2 This report was dictated in MDT I agree with preliminary report from ad, finalized on 07/10/20, 4:52 AM [facility]
[2020-07-10] MEDS: REMDESIVIR 100 MG in Sodium Chloride 0.9% 100 ML IV SCH (13:46)
[2020-07-10] MEDS: Sertraline 25 MG Tab PO SCH (17:25)
[2020-07-10] MEDS: Latanoprost 0.005% Ophth Soln 2.5 ML Bottle EYERT SCH (20:27)
[2020-07-10] MEDS: Acetaminophen 325 MG Tab PO PRN (20:28)
[2020-07-11] MEDS: Pantoprazole 40 MG Tab.CR PO SCH (06:04)
[2020-07-11] MEDS: Levothyroxine 100 MCG Tab PO SCH (06:04)
[2020-07-11] MEDS: Timolol Maleate 0.5% Ophth Soln 5 ML Bottle EYEBOTH SCH ×2 (08:57→20:10)
[2020-07-11] MEDS: Spironolactone 25 MG Tab PO SCH (08:57)
[2020-07-11] MEDS: Ascorbic Acid 500 MG Tab PO SCH (08:59)
[2020-07-11] MEDS: Enoxaparin 40 MG/0.4 ML Syringe SUBCUT SCH (09:01)
[2020-07-11] MEDS: Mirabegron [Myrbetriq] 50 MG PO SCH (09:01)
[2020-07-11] MEDS: Potassium Chloride 20 MEQ Tab.ER PO SCH (09:02)
[2020-07-11] MEDS: Fish Oil/Omega-3 Fatty Acids 1 Gm Cap PO SCH (09:03)
[2020-07-11] MEDS: Propranolol 60 MG Cap.ER PO SCH (09:03)
[2020-07-11] MEDS: Rosuvastatin 10 MG Tab PO SCH (09:04)
[2020-07-11] MEDS: Losartan 100 MG Tab PO SCH (09:05)
[2020-07-11] MEDS: Docusate Sodium 100 MG Cap PO SCH ×2 (09:06→20:47)
[2020-07-11] MEDS: Brimonidine 0.2% Ophth Soln 5 ML Bottle EYEBOTH SCH ×2 (09:07→20:10)
--- NOTE | 2020-07-11 10:55 | PCM.PN ---
- General Info Date of Service: 07/11/20 Admission Dx/Problem (Free Text): Admission Diagnosis/Problem Admission Diagnosis/Problem Weakness Functional Status: Reports: Pain Controlled, Tolerating Diet, Incentive Spirometry - Review of Systems General: Reports: Weakness. Denies: Fever, Chills HEENT: Reports: Headaches (much better). Denies: Glasses, Sore Throat Pulmonary: Reports: No Symptoms. Denies: Shortness of Breath, Cough, Wheezing Cardiovascular: Reports: No Symptoms. Denies: Chest Pain, Palpitations, Dyspnea on Exertion, Edema Gastrointestinal: Reports: No Symptoms Genitourinary: Reports: Incontinence (chronic). Denies: Dysuria, Frequency, Burning Musculoskeletal: Reports: No Symptoms Skin: Reports: No Symptoms Neurological: Reports: No Symptoms Psychiatric: Reports: No Symptoms - Patient Data Vitals - Most Recent: Last Vital Signs Temp 97.9 F 07/11/20 07:28 Pulse 72 07/11/20 07:29 Resp 16 07/11/20 07:28 BP 109/8 L 07/11/20 09:05 Pulse Ox 95 07/11/20 07:29 Weight - Most Recent: 155 lb 6.4 oz I&O - Last 24 Hours: Intake & Output 07/10/20 07/11/20 07/11/20 22:59 06:59 14:59 Intake Total 350 400 Output Total 200 350 Balance 150 50 Lab Results Last 24 Hours: Laboratory Results - last 24 hr 07/11/20 07/11/20 Range/Units 05:15 05:15 WBC 4.64 (3.98-10.04) K/mm3 RBC 4.58 (3.98-5.22) M/mm3 Hgb 13.6 (11.2-15.7) gm/dl Hct 41.3 (34.1-44.9) % MCV 90.2 (79.4-94.8) fl MCH 29.7 (25.6-32.2) pg MCHC 32.9 (32.2-35.5) g/dl RDW Std Deviation 44.9 (36.4-46.3) fL Plt Count 166 L (182-369) K/mm3 MPV 11.0 (9.4-12.3) fl Neut % (Auto) 45.1 (34.0-71.1) % Lymph % (Auto) 37.9 (19.3-51.7) % [place] % (Auto) 16.6 H (4.7-12.5) % Eos % (Auto) 0 L (0.7-5.8) Baso % (Auto) 0.2 (0.1-1.2) % Neut # (Auto) 2.09 (1.56-6.13) K/mm3 Lymph # (Auto) 1.76 (1.18-3.74) K/mm3 [place] # (Auto) 0.77 H (0.24-0.36) K/mm3 Eos # (Auto) 0.00 L (0.04-0.36) K/mm3 Baso # (Auto) 0.01 (0.01-0.08) K/mm3 Manual Slide Review Abnormal smear Sodium 136 (136-145) mEq/L Potassium 4.7 (3.5-5.1) mEq/L Chloride 101 (98-107) mEq/L Carbon Dioxide 25 (21-32) mEq/L Anion Gap 14.7 (5-15) BUN 27 H (7-18) mg/dL Creatinine 1.0 (0.55-1.02) mg/dL Est Cr Clr Drug Dosing 35.88 mL/min Estimated GFR (MDRD) 53 (>60) mL/min BUN/Creatinine Ratio 27.0 H (14-18) Glucose 98 (83-115) mg/dL Calcium 8.3 L (8.5-10.1) mg/dL Magnesium 2.2 (1.8-2.4) mg/dl Total Bilirubin 0.3 (0.2-1.0) mg/dL AST 25 (15-37) U/L ALT 33 (14-59) U/L Alkaline Phosphatase 78 (46-116) U/L Total Protein 6.3 L (6.4-8.2) g/dl Albumin 3.2 L (3.4-5.0) g/dl Globulin 3.1 gm/dL Albumin/Globulin Ratio 1.0 (1-2) Bimal Results Last 24 Hours: Microbiology 07/08/20 09:49 Aerobic Blood Culture - Preliminary Blood - Venous - Lab Draw NO GROWTH AFTER 3 DAYS Anaerobic Blood Culture - Preliminary NO GROWTH AFTER 3 DAYS 07/08/20 09:30 Aerobic Blood Culture - Preliminary Blood - Venous NO GROWTH AFTER 3 DAYS Anaerobic Blood Culture - Preliminary NO GROWTH AFTER 3 DAYS Med Orders - Current: Current Medications Acetaminophen (Tylenol) 650 mg PO Q4H PRN PRN Reason: Pain (Mild 1-3)/fever Last Admin: 07/10/20 20:28 Dose: 650 mg Documented by: Acetaminophen/Butalbital/Caffeine (Fioricet 325-50-40 Mg) 1 tab PO Q4H PRN PRN Reason: Headache Artificial Tears (Refresh Liquigel 1%) 0 ml EYEBOTH ASDIRECTED PRN PRN Reason: Dry Eyes Ascorbic Acid (Vitamin C) 1,000 mg PO DAILY [facility] Last Admin: 07/11/20 08:59 Dose: 1,000 mg Documented by: Brimonidine Tartrate (Alphagan 0.2% Ophth Soln) 0 ml EYEBOTH BID [facility] Last Admin: 07/11/20 09:07 Dose: 1 drop Documented by: Cyclobenzaprine HCl (Flexeril) 10 mg PO BEDTIME PRN PRN Reason: Muscle Spasm Docusate Sodium (Colace) 100 mg PO BID [facility] Last Admin: 07/11/20 09:06 Dose: 100 mg Documented by: Enoxaparin Sodium (Lovenox) 40 mg SUBCUT DAILY [facility] Last Admin: 07/11/20 09:01 Dose: 40 mg Documented by: Fish Oil (Fish Oil) 1 gm PO DAILY [facility] Last Admin: 07/11/20 09:03 Dose: 1 gm Documented by: Hydralazine HCl (Apresoline) 10 mg IVPUSH Q4H PRN PRN Reason: Hypertension Last Admin: 07/10/20 00:28 Dose: 10 mg Documented by: Remdesivir 100 mg/ Sodium (Chloride) 100 mls @ 100 mls/hr IV Q24H [facility] Stop: 07/13/20 12:59 Last Admin: 07/10/20 13:46 Dose: 100 mls/hr Documented by: Sodium Chloride (Normal Saline) 250 mls @ 100 mls/hr IV ASDIRECTED [facility] Last Admin: 07/09/20 17:40 Dose: 100 mls/hr Documented by: Latanoprost (Xalatan 0.005% Ophth Soln) 0 ml EYERT BEDTIME [facility] Last Admin: 07/10/20 20:27 Dose: 1 drop Documented by: Levothyroxine Sodium (Synthroid) 100 mcg PO ACBREAKFAST [facility] Last Admin: 07/11/20 06:04 Dose: 100 mcg Documented by: Losartan Potassium (Cozaar) 50 mg PO DAILY [facility] Last Admin: 07/11/20 09:05 Dose: 50 mg Documented by: Ondansetron HCl (Zofran) 4 mg IV Q4H PRN PRN Reason: Nausea/Vomiting Last Admin: 07/10/20 01:10 Dose: 4 mg Documented by: Pantoprazole Sodium (Protonix) 40 mg PO DAILY@0700 [facility] Last Admin: 07/11/20 06:04 Dose: 40 mg Documented by: Mirabegron [ (Myrbetriq] 50 Mg) 0 each PO DAILY [facility] Last Admin: 07/11/20 09:01 Dose: Not Given Documented by: Propranolol HCl (Inderal La) 60 mg PO DAILY [facility] Last Admin: 07/11/20 09:03 Dose: 60 mg Documented by: Rosuvastatin Calcium (Crestor) 5 mg PO DAILY [facility] Last Admin: 07/11/20 09:04 Dose: 5 mg Documented by: Sertraline HCl (Zoloft) 25 mg PO QPM [facility] Last Admin: 07/10/20 17:25 Dose: 25 mg Documented by: Sodium Chloride (Saline Flush) 10 ml FLUSH ASDIRECTED PRN PRN Reason: Keep Vein Open Last Admin: 07/08/20 09:52 Dose: 10 ml Documented by: Spironolactone (Aldactone) 25 mg PO DAILY [facility] Last Admin: 07/11/20 08:57 Dose: 25 mg Documented by: Timolol Maleate (Timoptic 0.5% [facility] Sol) 0 ml EYEBOTH BID [facility] Last Admin: 07/11/20 08:57 Dose: 1 drop Documented by: Discontinued Medications Acetaminophen (Tylenol) 975 mg PO NOW ONE Stop: 07/08/20 11:11 Last Admin: 07/08/20 11:15 Dose: 975 mg Documented by: Enoxaparin Sodium (Lovenox) 40 mg SUBCUT Q24H [facility] Stop: 07/09/20 18:00 Last Admin: 07/09/20 16:11 Dose: 40 mg Documented by: Sodium Chloride (Normal Saline) 1,000 mls @ 125 mls/hr IV BOLUS ONE; Protocol Stop: 07/08/20 17:18 Last Admin: 07/08/20 09:51 Dose: 125 mls/hr Documented by: Sodium Chloride (Normal Saline) 1,000 mls @ 75 mls/hr IV ASDIRECTED [facility] Magnesium Sulfate 2 gm/ Premix 50 mls @ 25 mls/hr IV ONETIME ONE Stop: 07/09/20 09:35 Last Admin: 07/09/20 08:38 Dose: 25 mls/hr Documented by: Sodium Chloride (Normal Saline) 1,000 mls @ 75 mls/hr IV ASDIRECTED [facility] Last Admin: 07/09/20 10:18 Dose: 75 mls/hr Documented by: Sodium Chloride (Normal Saline) 1,000 mls @ 200 mls/hr IV ASDIRECTED [facility] Stop: 07/09/20 16:29 Last Admin: 07/09/20 16:12 Dose: 75 mls/hr Documented by: Remdesivir 200 mg/ Sodium (Chloride) 250 mls @ 250 mls/hr IV ONETIME ONE Stop: 07/09/20 13:29 Last Admin: 07/09/20 12:18 Dose: 250 mls/hr Documented by: Magnesium Sulfate 2 gm/ Premix 50 mls @ 25 mls/hr IV ONETIME ONE Stop: 07/10/20 11:59 Last Admin: 07/10/20 10:19 Dose: 25 mls/hr Documented by: Latanoprost (Xalatan 0.005% Ophth Soln) 0 ml EYERT QPM [facility] Lorazepam (Ativan) 1 mg PO ONETIME ONE Stop: 07/10/20 01:59 Last Admin: 07/10/20 02:07 Dose: 1 mg Documented by: Losartan Potassium (Cozaar) 50 mg PO DAILY [facility] Losartan Potassium (Cozaar) 75 mg PO DAILY [facility] Last Admin: 07/09/20 08:41 Dose: 75 mg Documented by: Non-Formulary Medication (Betamethasone/Propylene Glyc [Betamethasone Dp Aug 0.05% Oin]) 1 applic TOP BID [facility] Ondansetron HCl (Zofran) 4 mg IVPUSH ONETIME ONE Stop: 07/08/20 09:25 Last Admin: 07/08/20 09:52 Dose: 4 mg Documented by: Potassium Chloride (Klor-Con M20) 40 meq PO ONETIME ONE Stop: 07/08/20 15:01 Last Admin: 07/08/20 16:00 Dose: 40 meq Documented by: Potassium Chloride (Klor-Con M20) 40 meq PO BID [facility] Stop: 07/11/20 09:01 Last Admin: 07/11/20 09:02 Dose: 40 meq Documented by: Trazodone HCl (Trazodone) 50 mg PO ONETIME ONE Stop: 07/10/20 00:03 Last Admin: 07/10/20 00:19 Dose: 50 mg Documented by: - Exam Quality Assessment: DVT Prophylaxis. No: Supplemental Oxygen General: Alert, Oriented, Cooperative, Mild Distress HEENT: Pupils Equal, Pupils Reactive Neck: Supple, Trachea Midline, No JVD. No: Lymphadenopathy Lungs: Normal Respiratory Effort, Crackles (left posterior lower lobe) Cardiovascular: Regular Rate, Regular Rhythm, No Murmurs GI/Abdominal Exam: Normal Bowel Sounds, Soft, Non-Tender, No Distention (Female) Exam: Deferred Back Exam: Normal Inspection, Full Range of Motion Extremities: Normal Inspection, Normal Range of Motion, Non-Tender, No Pedal Edema, Normal Capillary Refill Peripheral Pulses: 2+: Radial (L), Radial (R) Skin: Warm, Dry, Intact Neurological: No New Focal Deficit Psy/Mental Status: Alert, Normal Affect, Normal Mood Sepsis Event Note - Evaluation Sepsis Screening Result: No Definite Risk - Focused Exam Vital Signs: Vital Signs Temp Pulse Resp BP Pulse Ox 07/11/20 09:05 109/8 L 07/11/20 07:29 72 95 07/11/20 07:28 97.9 F 16 109/87 07/11/20 05:11 97.9 F 74 18 118/63 96 07/11/20 00:25 97.5 F 62 18 128/47 L 97 - Problem List & Annotations (1) Macular degeneration SNOMED Code(s): 980635081 Code(s): H35.30 - UNSPECIFIED MACULAR DEGENERATION Status: Chronic Priority: Medium Current Visit: Yes Qualifiers: Macular degeneration type: unspecified type Eye laterality: unspecified Qualified Code(s): H35.30 - Unspecified macular degeneration (2) PUD (peptic ulcer disease) SNOMED Code(s): 69383409 Code(s): K27.9 - PEPTIC ULC, SITE UNSP, UNSP AC OR CHR, W/O HEMOR OR PERF Status: Chronic Priority: Medium Current Visit: Yes (3) Hypercholesteremia SNOMED Code(s): 14732655 Code(s): E78.00 - PURE HYPERCHOLESTEROLEMIA, UNSPECIFIED Status: Chronic Priority: Medium Current Visit: Yes (4) 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 SNOMED Code(s): 44805915 Code(s): R32 - UNSPECIFIED URINARY INCONTINENCE Status: Chronic Priority: Medium Current Visit: Yes (5) Essential tremor SNOMED Code(s): 679895040 Code(s): G25.0 - ESSENTIAL TREMOR Status: Chronic Priority: Low Current Visit: Yes (6) Depression SNOMED Code(s): 80783288 Code(s): F32.9 - MAJOR DEPRESSIVE DISORDER, SINGLE EPISODE, UNSPECIFIED Status: Chronic Priority: Low Current Visit: Yes Qualifiers: Depression Type: unspecified Qualified Code(s): F32.9 - Major depressive disorder, single episode, unspecified (7) Non-Hodgkin lymphoma in remission SNOMED Code(s): 228942347, 697543601 Code(s): C85.90 - NON-HODGKIN LYMPHOMA, UNSPECIFIED, UNSPECIFIED SITE Status: Chronic Priority: Medium Current Visit: Yes (8) Generalized weakness SNOMED Code(s): 54170228 Code(s): R53.1 - WEAKNESS Status: Acute Priority: High Current Visit: Yes (9) Nausea SNOMED Code(s): 425211348 Code(s): R11.0 - NAUSEA Status: Acute Priority: High Current Visit: No (10) Hypertension SNOMED Code(s): 97659410 Code(s): I10 - ESSENTIAL (PRIMARY) HYPERTENSION Status: Chronic Priority: High Current Visit: No Qualifiers: Hypertension type: unspecified Qualified Code(s): I10 - Essential (primary) hypertension (11) Hypothyroidism SNOMED Code(s): 97211305 Code(s): E03.9 - HYPOTHYROIDISM, UNSPECIFIED Status: Chronic Priority: Medium Current Visit: No Qualifiers: Hypothyroidism type: unspecified Qualified Code(s): E03.9 - Hypothyroidism, unspecified (12) COVID-19 SNOMED Code(s): 092560591 Code(s): U07.1 - COVID-19 Status: Acute Priority: High Current Visit: Yes - Problem List Review Problem List Initiated/Reviewed/Updated: Yes - My Orders Last 24 Hours: My Active Orders 07/12/20 05:11 CBC WITH AUTO DIFF [HEME] AM COMPREHENSIVE METABOLIC PN,CMP [CHEM] AM CRP [C-REACTIVE PROTEIN] [CHEM] Q48H D-DIMER QUANTITATIVE [COAG] Q48H FERRITIN [CHEM] Q48H LACTATE DEHYDROGENASE,LDH [CHEM] Q48H MAGNESIUM [CHEM] AM - Assessment Assessment:: Assessment:: 07/09/2020 COVID 19 weaker today with increased complaints of headache pain and generalized aches not relieved by Tylenol. Rapid response called on the patient today when she was up to the bathroom to void. The nurse reported that the patient ambulated to the bathroom and when she sat down on the toilet, she then complained of feeling dizzy and nauseated and then slumped to her right side. Initially not arousable to voice, but then slowly came around. TLM showed 3 sec of bigeminal pvc's with a rate of 85. Once patient was arousable, she then had a small amount of emesis. Rapid response team assisted her back into bed in the supine position and the patient reported feeling better. EKG reveals an ectopic atrial rhythm without ST elevation or depression. Rate of 66. Pt is now requiring 1 liter of O2 per nasal cannula for O2 sats of 87 on room air. Troponin 0.025. BNP 742. Pt is orthostatic 124/60 supine, 78/42 standing. Pt will receive 1 liter of NS at a rate of 200ml/hr. Will reassess after liter in. Remdesivir to be started due to the patient requiring O2. Convalescent plasma ordered. Vital signs: Blood pressure 124/60, heart rate 81, respiratory rate 12, pulse ox 96% on 1 liter per nasal cannula Lab results WBC 4.54 proBNP 742 -Trop 0.025 -Platelet down 172-167 -K+ up from 3.4-3.9 -Mg 1.6 received 2gm MG IV -GFR >60 PLAN Remdesivir day 1. Spoke with patient regarding starting Remdesivir infusion. Discussed the risks and the benefits including kidney and liver injury and patient is agreeable to receiving infusion. daily weights strict I&O Convalescent Plasma ordered to be transfused tomorrow once it is available as we do not have this in the hospital. Miriancet for headache pain Continue O2 supplementation for goal O2 sat above 92% Incentive spirometer repeat Troponin. Renally dose medications Repeat labs as needed Physical therapy/Occupational therapy for strengthening and plan for dc to home. -If platelets continue to decrease, will dc lovenox and start heparin. Code Status: DNR/DNI GI: not warranted Plan for patient to be here for five days due to Remdesivir therapy. Continue O2 therapy. Therapies to see patient for strengthening and discharge planning as patient is not safe to go home due to weakness. 07/10/2020 COVID 19 lethargic today. Pt did not sleep much last night. Received ativan early this morning. Remdesivir day 2. -received 1 unit of convalescent plasma last evening. Per Dr. Ayala, the patient had a hypertensive episode shortly into the transfusion. Transfusion was stopped and then resumed about an hour later and the patient tolerated it. Early this morning, the patient developed shortness of breath and chest pain. Chest pain resolved. Troponin <0.017. Pt was then given Ativan and this seemed to resolve her symptoms. -on room air Vital signs: Blood pressure 112/65, heart rate 86, respiratory rate 18, pulse ox 94% on room air. Lab results WBC 10.03 proBNP 742 -Trop <0.017 -Platelet up to 171 from 167 -K+ down from 3.9 to 3.3 -Mg 1.7 from 1.6 -GFR >60 -Cre 0.7 -D-dimer 0.82 from 0.65 -LDH from 237 to 243 -CRP 0.9 -ProBNP 742 down to 344 PLAN Remdesivir day 2. daily weights strict I&O Convalescent plasma 1 unit given Fiorcet for headache pain Continue O2 supplementation for goal O2 sat above 92% Incentive spirometer Oral potassium supplementation -IV magnesium infusion Renally dose medications Repeat labs as needed Physical therapy/Occupational therapy for strengthening and plan for dc to home. Code Status: DNR/DNI GI: not warranted Plan for patient to be here for four more days due to Remdesivir therapy. Continue O2 therapy as needed. PT/OT recommending pt be discharged to SNF. Case management and social services coordinator to assist with placement upon discharge. 07/11/2020 COVID 19 much better today. More alert. Says her headache is much better. Remdesivir day 3 -crackles to bilateral bases. Encourage IS Q 1 hour. Vital signs: Blood pressure 109/87, heart rate , respiratory rate 16, pulse ox 95% on room air. Lab results WBC 4.64 -Platelet up to 171 from 166 -K+ 4.7 -Mg 2.2 -GFR 53 -Cre 1.0 -BUN 27 PLAN Remdesivir day 3. daily weights strict I&O Continue O2 supplementation for goal O2 sat above 92%. Currently on room air Incentive spirometer Renally dose medications Repeat labs as needed Physical therapy/Occupational therapy for strengthening and plan for dc to home. Code Status: DNR/DNI GI: not warranted VTE prophylaxis: Lovenox Plan for patient to be here for 3 more days due to Remdesivir therapy. Continue O2 therapy as needed. PT/OT recommending pt be discharged to SNF versus home with home health care. Case management and social services coordinator to assist with placement upon discharge. 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 -continue Myrbetriq Essential tremor -continue Propranolol Depression -continue Zoloft Non-Hodgkin lymphoma in remission -monitor labs Generalized weakness -encourage activity -PT/OT to eval and treat for strengthening for dc planning Nausea -Zofran prn Hypertension -continue losartan Hypothyroidism -continue Levothyroxine Covid 19 -monitor for worsening respiratory symptoms, O2 sats -I&O, daily weights, vital signs -incentive spirometry, flutter valve -monitor labs -heart healthy diet -up with nursing assistance in room -Spiritual care -case management for discharge planning -digital designer consult for nutritional needs -telemetry -Remdesivir day 3 -O2 as needed to maintain O2 sats >92% -pain management
[2020-07-11] MEDS ORDERED: Sodium Chloride 0.9% 100 ML ONE (11:55)
[2020-07-11] MEDS: REMDESIVIR 100 MG in Sodium Chloride 0.9% 100 ML IV SCH (12:04)
[2020-07-11] MEDS: Sertraline 25 MG Tab PO SCH (17:23)
[2020-07-11] MEDS: Latanoprost 0.005% Ophth Soln 2.5 ML Bottle EYERT SCH (20:10)
[2020-07-12] MEDS: Pantoprazole 40 MG Tab.CR PO SCH (06:06)
[2020-07-12] MEDS: Levothyroxine 100 MCG Tab PO SCH (06:06)
[2020-07-12] MEDS: Spironolactone 25 MG Tab PO SCH (09:15)
[2020-07-12] MEDS: Enoxaparin 40 MG/0.4 ML Syringe SUBCUT SCH (09:15)
[2020-07-12] MEDS: Propranolol 60 MG Cap.ER PO SCH (09:16)
[2020-07-12] MEDS: Losartan 100 MG Tab PO SCH (09:16)
[2020-07-12] MEDS: Rosuvastatin 10 MG Tab PO SCH (09:16)
[2020-07-12] MEDS: Timolol Maleate 0.5% Ophth Soln 5 ML Bottle EYEBOTH SCH ×2 (09:17→22:12)
[2020-07-12] MEDS: Fish Oil/Omega-3 Fatty Acids 1 Gm Cap PO SCH (09:17)
[2020-07-12] MEDS: Ascorbic Acid 500 MG Tab PO SCH (09:17)
[2020-07-12] MEDS: Docusate Sodium 100 MG Cap PO SCH ×2 (09:17→22:13)
[2020-07-12] MEDS: Mirabegron [Myrbetriq] 50 MG PO SCH (09:18)
[2020-07-12] MEDS: Brimonidine 0.2% Ophth Soln 5 ML Bottle EYEBOTH SCH ×2 (09:25→22:12)
--- NOTE | 2020-07-12 11:27 | PCM.PN ---
- General Info Date of Service: 07/12/20 Functional Status: Reports: Pain Controlled, Tolerating Diet, Ambulating, Incentive Spirometry - Review of Systems General: Reports: Weakness (continues working with physical therapy) HEENT: Reports: No Symptoms. Denies: Headaches (resolved) Pulmonary: Reports: No Symptoms. Denies: Shortness of Breath, Cough Cardiovascular: Reports: No Symptoms. Denies: Chest Pain, Edema Gastrointestinal: Reports: No Symptoms Genitourinary: Reports: Incontinence (chronic) Musculoskeletal: Reports: No Symptoms Skin: Reports: No Symptoms Neurological: Reports: No Symptoms Psychiatric: Reports: No Symptoms - Patient Data Vitals - Most Recent: Last Vital Signs Temp 97.9 F 07/12/20 07:51 Pulse 69 07/12/20 07:51 Resp 16 07/12/20 07:51 BP 135/97 H 07/12/20 09:16 Pulse Ox 95 07/12/20 07:51 Weight - Most Recent: 153 lb 4.8 oz I&O - Last 24 Hours: Intake & Output 07/11/20 07/12/20 07/12/20 22:59 06:59 14:59 Intake Total 1140 1000 Output Total 600 1100 Balance 540 -100 Lab Results Last 24 Hours: Laboratory Results - last 24 hr 07/12/20 07/12/20 07/12/20 Range/Units 05:36 05:36 05:36 WBC 4.63 (3.98-10.04) K/mm3 RBC 4.76 (3.98-5.22) M/mm3 Hgb 13.8 (11.2-15.7) gm/dl Hct 42.7 (34.1-44.9) % MCV 89.7 (79.4-94.8) fl MCH 29.0 (25.6-32.2) pg MCHC 32.3 (32.2-35.5) g/dl RDW Std Deviation 44.4 (36.4-46.3) fL Plt Count 179 L (182-369) K/mm3 MPV 11.1 (9.4-12.3) fl Neut % (Auto) 46.7 (34.0-71.1) % Lymph % (Auto) 35.6 (19.3-51.7) % [place] % (Auto) 17.1 H (4.7-12.5) % Eos % (Auto) 0.2 L (0.7-5.8) Baso % (Auto) 0.2 (0.1-1.2) % Neut # (Auto) 2.16 (1.56-6.13) K/mm3 Lymph # (Auto) 1.65 (1.18-3.74) K/mm3 [place] # (Auto) 0.79 H (0.24-0.36) K/mm3 Eos # (Auto) 0.01 L (0.04-0.36) K/mm3 Baso # (Auto) 0.01 (0.01-0.08) K/mm3 Manual Slide Review Abnormal smear D-Dimer, Quantitative 0.41 (0.19-0.50) mg/L Sodium 136 (136-145) mEq/L Potassium 4.5 (3.5-5.1) mEq/L Chloride 101 (98-107) mEq/L Carbon Dioxide 28 (21-32) mEq/L Anion Gap 11.5 (5-15) BUN 25 H (7-18) mg/dL Creatinine 0.8 (0.55-1.02) mg/dL Est Cr Clr Drug Dosing 44.85 mL/min Estimated GFR (MDRD) > 60 (>60) mL/min BUN/Creatinine Ratio 31.3 H (14-18) Glucose 97 (83-115) mg/dL Calcium 8.8 (8.5-10.1) mg/dL Magnesium 1.8 (1.8-2.4) mg/dl Ferritin (8-252) ng/ml Total Bilirubin 0.4 (0.2-1.0) mg/dL AST 22 (15-37) U/L ALT 30 (14-59) U/L Alkaline Phosphatase 77 (46-116) U/L Lactate Dehydrogenase 193 (81-234) U/L C-Reactive Protein 1.3 H* (<1.0) mg/dL Total Protein 6.3 L (6.4-8.2) g/dl Albumin 3.3 L (3.4-5.0) g/dl Globulin 3.0 gm/dL Albumin/Globulin Ratio 1.1 (1-2) /18/20 Range/Units 05:36 WBC (3.98-10.04) K/mm3 RBC (3.98-5.22) M/mm3 Hgb (11.2-15.7) gm/dl Hct (34.1-44.9) % MCV (79.4-94.8) fl MCH (25.6-32.2) pg MCHC (32.2-35.5) g/dl RDW Std Deviation (36.4-46.3) fL Plt Count (182-369) K/mm3 MPV (9.4-12.3) fl Neut % (Auto) (34.0-71.1) % Lymph % (Auto) (19.3-51.7) % [place] % (Auto) (4.7-12.5) % Eos % (Auto) (0.7-5.8) Baso % (Auto) (0.1-1.2) % Neut # (Auto) (1.56-6.13) K/mm3 Lymph # (Auto) (1.18-3.74) K/mm3 [place] # (Auto) (0.24-0.36) K/mm3 Eos # (Auto) (0.04-0.36) K/mm3 Baso # (Auto) (0.01-0.08) K/mm3 Manual Slide Review D-Dimer, Quantitative (0.19-0.50) mg/L Sodium (136-145) mEq/L Potassium (3.5-5.1) mEq/L Chloride (98-107) mEq/L Carbon Dioxide (21-32) mEq/L Anion Gap (5-15) BUN (7-18) mg/dL Creatinine (0.55-1.02) mg/dL Est Cr Clr Drug Dosing mL/min Estimated GFR (MDRD) (>60) mL/min BUN/Creatinine Ratio (14-18) Glucose (83-115) mg/dL Calcium (8.5-10.1) mg/dL Magnesium (1.8-2.4) mg/dl Ferritin 70 (8-252) ng/ml Total Bilirubin (0.2-1.0) mg/dL AST (15-37) U/L ALT (14-59) U/L Alkaline Phosphatase (46-116) U/L Lactate Dehydrogenase (81-234) U/L C-Reactive Protein (<1.0) mg/dL Total Protein (6.4-8.2) g/dl Albumin (3.4-5.0) g/dl Globulin gm/dL Albumin/Globulin Ratio (1-2) Bimal Results Last 24 Hours: Microbiology 07/08/20 09:30 Aerobic Blood Culture - Preliminary Blood - Venous NO GROWTH AFTER 4 DAYS Anaerobic Blood Culture - Preliminary NO GROWTH AFTER 4 DAYS 07/08/20 09:49 Aerobic Blood Culture - Preliminary Blood - Venous - Lab Draw NO GROWTH AFTER 4 DAYS Anaerobic Blood Culture - Preliminary NO GROWTH AFTER 4 DAYS Med Orders - Current: Current Medications Acetaminophen (Tylenol) 650 mg PO Q4H PRN PRN Reason: Pain (Mild 1-3)/fever Last Admin: 07/10/20 20:28 Dose: 650 mg Documented by: Acetaminophen/Butalbital/Caffeine (Fioricet 325-50-40 Mg) 1 tab PO Q4H PRN PRN Reason: Headache Artificial Tears (Refresh Liquigel 1%) 0 ml EYEBOTH ASDIRECTED PRN PRN Reason: Dry Eyes Ascorbic Acid (Vitamin C) 1,000 mg PO DAILY [facility] Last Admin: 07/12/20 09:17 Dose: 1,000 mg Documented by: Brimonidine Tartrate (Alphagan 0.2% Ophth Soln) 0 ml EYEBOTH BID [facility] Last Admin: 07/12/20 09:25 Dose: 1 drop Documented by: Cyclobenzaprine HCl (Flexeril) 10 mg PO BEDTIME PRN PRN Reason: Muscle Spasm Docusate Sodium (Colace) 100 mg PO BID [facility] Last Admin: 07/12/20 09:17 Dose: 100 mg Documented by: Enoxaparin Sodium (Lovenox) 40 mg SUBCUT DAILY [facility] Last Admin: 07/12/20 09:15 Dose: 40 mg Documented by: Fish Oil (Fish Oil) 1 gm PO DAILY [facility] Last Admin: 07/12/20 09:17 Dose: 1 gm Documented by: Hydralazine HCl (Apresoline) 10 mg IVPUSH Q4H PRN PRN Reason: Hypertension Last Admin: 07/10/20 00:28 Dose: 10 mg Documented by: Remdesivir 100 mg/ Sodium (Chloride) 100 mls @ 100 mls/hr IV Q24H [facility] Stop: 07/13/20 12:59 Last Admin: 07/11/20 12:04 Dose: 100 mls/hr Documented by: Sodium Chloride (Normal Saline) 250 mls @ 100 mls/hr IV ASDIRECTED [facility] Last Admin: 07/09/20 17:40 Dose: 100 mls/hr Documented by: Latanoprost (Xalatan 0.005% Ophth Soln) 0 ml EYERT BEDTIME [facility] Last Admin: 07/11/20 20:10 Dose: 1 drop Documented by: Levothyroxine Sodium (Synthroid) 100 mcg PO ACBREAKFAST [facility] Last Admin: 07/12/20 06:06 Dose: 100 mcg Documented by: Losartan Potassium (Cozaar) 50 mg PO DAILY [facility] Last Admin: 07/12/20 09:16 Dose: 50 mg Documented by: Ondansetron HCl (Zofran) 4 mg IV Q4H PRN PRN Reason: Nausea/Vomiting Last Admin: 07/10/20 01:10 Dose: 4 mg Documented by: Pantoprazole Sodium (Protonix) 40 mg PO DAILY@0700 [facility] Last Admin: 07/12/20 06:06 Dose: 40 mg Documented by: Mirabegron [ (Myrbetriq] 50 Mg) 0 each PO DAILY [facility] Last Admin: 07/12/20 09:18 Dose: Not Given Documented by: Propranolol HCl (Inderal La) 60 mg PO DAILY [facility] Last Admin: 07/12/20 09:16 Dose: 60 mg Documented by: Rosuvastatin Calcium (Crestor) 5 mg PO DAILY [facility] Last Admin: 07/12/20 09:16 Dose: 5 mg Documented by: Sertraline HCl (Zoloft) 25 mg PO QPM [facility] Last Admin: 07/11/20 17:23 Dose: 25 mg Documented by: Sodium Chloride (Saline Flush) 10 ml FLUSH ASDIRECTED PRN PRN Reason: Keep Vein Open Last Admin: 07/08/20 09:52 Dose: 10 ml Documented by: Spironolactone (Aldactone) 25 mg PO DAILY [facility] Last Admin: 07/12/20 09:15 Dose: 25 mg Documented by: Timolol Maleate (Timoptic 0.5% Ophth Soln) 0 ml EYEBOTH BID [facility] Last Admin: 07/12/20 09:17 Dose: 1 drop Documented by: Discontinued Medications Acetaminophen (Tylenol) 975 mg PO NOW ONE Stop: 07/08/20 11:11 Last Admin: 07/08/20 11:15 Dose: 975 mg Documented by: Enoxaparin Sodium (Lovenox) 40 mg SUBCUT Q24H [facility] Stop: 07/09/20 18:00 Last Admin: 07/09/20 16:11 Dose: 40 mg Documented by: Sodium Chloride (Normal Saline) 1,000 mls @ 125 mls/hr IV BOLUS ONE; Protocol Stop: 07/08/20 17:18 Last Admin: 07/08/20 09:51 Dose: 125 mls/hr Documented by: Sodium Chloride (Normal Saline) 1,000 mls @ 75 mls/hr IV ASDIRECTED CARTER Magnesium Sulfate 2 gm/ Premix 50 mls @ 25 mls/hr IV ONETIME ONE Stop: 07/09/20 09:35 Last Admin: 07/09/20 08:38 Dose: 25 mls/hr Documented by: Sodium Chloride (Normal Saline) 1,000 mls @ 75 mls/hr IV ASDIRECTED [facility] Last Admin: 07/09/20 10:18 Dose: 75 mls/hr Documented by: Sodium Chloride (Normal Saline) 1,000 mls @ 200 mls/hr IV ASDIRECTED CARTER Stop: 07/09/20 16:29 Last Admin: 07/09/20 16:12 Dose: 75 mls/hr Documented by: Remdesivir 200 mg/ Sodium (Chloride) 250 mls @ 250 mls/hr IV ONETIME ONE Stop: 07/09/20 13:29 Last Admin: 07/09/20 12:18 Dose: 250 mls/hr Documented by: Magnesium Sulfate 2 gm/ Premix 50 mls @ 25 mls/hr IV ONETIME ONE Stop: 07/10/20 11:59 Last Admin: 07/10/20 10:19 Dose: 25 mls/hr Documented by: Sodium Chloride (Normal Saline) Confirm Administered Dose 100 mls @ as directed .ROUTE .STK-MED ONE Stop: 07/11/20 11:56 Last Admin: 07/11/20 13:32 Dose: Not Given Documented by: Latanoprost (Xalatan 0.005% Ophth Soln) 0 ml EYERT QPM [facility] Lorazepam (Ativan) 1 mg PO ONETIME ONE Stop: 07/10/20 01:59 Last Admin: 07/10/20 02:07 Dose: 1 mg Documented by: Losartan Potassium (Cozaar) 50 mg PO DAILY [facility] Losartan Potassium (Cozaar) 75 mg PO DAILY [facility] Last Admin: 07/09/20 08:41 Dose: 75 mg Documented by: Non-Formulary Medication (Betamethasone/Propylene Glyc [Betamethasone Dp Aug 0.05% Oin]) 1 applic TOP BID [facility] Ondansetron HCl (Zofran) 4 mg IVPUSH ONETIME ONE Stop: 07/08/20 09:25 Last Admin: 07/08/20 09:52 Dose: 4 mg Documented by: Potassium Chloride (Klor-Con M20) 40 meq PO ONETIME ONE Stop: 07/08/20 15:01 Last Admin: 07/08/20 16:00 Dose: 40 meq Documented by: Potassium Chloride (Klor-Con M20) 40 meq PO BID [facility] Stop: 07/11/20 09:01 Last Admin: 07/11/20 09:02 Dose: 40 meq Documented by: Trazodone HCl (Trazodone) 50 mg PO ONETIME ONE Stop: 07/10/20 00:03 Last Admin: 07/10/20 00:19 Dose: 50 mg Documented by: - Exam Quality Assessment: DVT Prophylaxis (lovenox). No: Supplemental Oxygen General: Alert, Oriented, Cooperative, No Acute Distress HEENT: Pupils Equal, Mucous Membr. Moist/[place] Neck: Supple, Trachea Midline. No: Lymphadenopathy Lungs: Clear to Auscultation, Normal Respiratory Effort Cardiovascular: Regular Rate, Regular Rhythm, No Murmurs GI/Abdominal Exam: Normal Bowel Sounds, Soft, Non-Tender, No Distention (Female) Exam: Deferred Back Exam: Normal Inspection, Full Range of Motion Extremities: Normal Inspection, Normal Range of Motion, Non-Tender, No Pedal Edema, Normal Capillary Refill Peripheral Pulses: 2+: Radial (L), Radial (R) Skin: Warm, Dry, Intact Neurological: No New Focal Deficit Psy/Mental Status: Alert, Normal Affect, Normal Mood Sepsis Event Note - Evaluation Sepsis Screening Result: No Definite Risk - Focused Exam Vital Signs: Vital Signs Temp Pulse Resp BP Pulse Ox 07/12/20 09:16 135/97 H 07/12/20 07:51 97.9 F 69 16 135/97 H 95 07/12/20 02:55 98.2 F 71 18 143/98 H 93 L 07/12/20 00:28 97.7 F 61 18 105/88 97 - Problem List & Annotations (1) Macular degeneration SNOMED Code(s): 796990833 Code(s): H35.30 - UNSPECIFIED MACULAR DEGENERATION Status: Chronic Priority: Medium Current Visit: Yes Qualifiers: Macular degeneration type: unspecified type Eye laterality: unspecified Qualified Code(s): H35.30 - Unspecified macular degeneration (2) PUD (peptic ulcer disease) SNOMED Code(s): 28010417 Code(s): K27.9 - PEPTIC ULC, SITE UNSP, UNSP AC OR CHR, W/O HEMOR OR PERF Status: Chronic Priority: Medium Current Visit: Yes (3) Hypercholesteremia SNOMED Code(s): 81658985 Code(s): E78.00 - PURE HYPERCHOLESTEROLEMIA, UNSPECIFIED Status: Chronic Priority: Medium Current Visit: Yes (4) 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 SNOMED Code(s): 64266307 Code(s): R32 - UNSPECIFIED URINARY INCONTINENCE Status: Chronic Priority: Medium Current Visit: Yes (5) Essential tremor SNOMED Code(s): 981817028 Code(s): G25.0 - ESSENTIAL TREMOR Status: Chronic Priority: Low Current Visit: Yes (6) Depression SNOMED Code(s): 85292018 Code(s): F32.9 - MAJOR DEPRESSIVE DISORDER, SINGLE EPISODE, UNSPECIFIED Status: Chronic Priority: Low Current Visit: Yes Qualifiers: Depression Type: unspecified Qualified Code(s): F32.9 - Major depressive disorder, single episode, unspecified (7) Non-Hodgkin lymphoma in remission SNOMED Code(s): 480849942, 617992939 Code(s): C85.90 - NON-HODGKIN LYMPHOMA, UNSPECIFIED, UNSPECIFIED SITE Status: Chronic Priority: Medium Current Visit: Yes (8) Generalized weakness SNOMED Code(s): 28304884 Code(s): R53.1 - WEAKNESS Status: Acute Priority: High Current Visit: Yes (9) Nausea SNOMED Code(s): 496740422 Code(s): R11.0 - NAUSEA Status: Acute Priority: High Current Visit: No (10) Hypertension SNOMED Code(s): 77748972 Code(s): I10 - ESSENTIAL (PRIMARY) HYPERTENSION Status: Chronic Priority: High Current Visit: No Qualifiers: Hypertension type: unspecified Qualified Code(s): I10 - Essential (primary) hypertension (11) Hypothyroidism SNOMED Code(s): 31635571 Code(s): E03.9 - HYPOTHYROIDISM, UNSPECIFIED Status: Chronic Priority: Medium Current Visit: No Qualifiers: Hypothyroidism type: unspecified Qualified Code(s): E03.9 - Hypothyroidism, unspecified (12) COVID-19 SNOMED Code(s): 534354946 Code(s): U07.1 - COVID-19 Status: Acute Priority: High Current Visit: Yes - Problem List Review Problem List Initiated/Reviewed/Updated: Yes - Assessment Assessment:: Assessment:: 07/09/2020 COVID 19 weaker today with increased complaints of headache pain and generalized aches not relieved by Tylenol. Rapid response called on the patient today when she was up to the bathroom to void. The nurse reported that the patient ambulated to the bathroom and when she sat down on the toilet, she then complained of feeling dizzy and nauseated and then slumped to her right side. Initially not arousable to voice, but then slowly came around. TLM showed 3 sec of bigeminal pvc's with a rate of 85. Once patient was arousable, she then had a small amount of emesis. Rapid response team assisted her back into bed in the supine position and the patient reported feeling better. EKG reveals an ectopic atrial rhythm without ST elevation or depression. Rate of 66. Pt is now requiring 1 liter of O2 per nasal cannula for O2 sats of 87 on room air. Troponin 0.025. BNP 742. Pt is orthostatic 124/60 supine, 78/42 standing. Pt will receive 1 liter of NS at a rate of 200ml/hr. Will reassess after liter in. Remdesivir to be started due to the patient requiring O2. Convalescent plasma ordered. Vital signs: Blood pressure 124/60, heart rate 81, respiratory rate 12, pulse ox 96% on 1 liter per nasal cannula Lab results WBC 4.54 proBNP 742 -Trop 0.025 -Platelet down 172-167 -K+ up from 3.4-3.9 -Mg 1.6 received 2gm MG IV -GFR >60 PLAN Remdesivir day 1. Spoke with patient regarding starting Remdesivir infusion. Discussed the risks and the benefits including kidney and liver injury and patient is agreeable to receiving infusion. daily weights strict I&O Convalescent Plasma ordered to be transfused tomorrow once it is available as we do not have this in the hospital. Fiorcet for headache pain Continue O2 supplementation for goal O2 sat above 92% Incentive spirometer repeat Troponin. Renally dose medications Repeat labs as needed Physical therapy/Occupational therapy for strengthening and plan for dc to home. -If platelets continue to decrease, will dc lovenox and start heparin. Code Status: DNR/DNI GI: not warranted Plan for patient to be here for five days due to Remdesivir therapy. Continue O2 therapy. Therapies to see patient for strengthening and discharge planning as patient is not safe to go home due to weakness. 07/10/2020 COVID 19 lethargic today. Pt did not sleep much last night. Received ativan early this morning. Remdesivir day 2. -received 1 unit of convalescent plasma last evening. Per Dr. Ayala, the patient had a hypertensive episode shortly into the transfusion. Transfusion was stopped and then resumed about an hour later and the patient tolerated it. Early this morning, the patient developed shortness of breath and chest pain. Chest pain resolved. Troponin <0.017. Pt was then given Ativan and this seemed to resolve her symptoms. -on room air Vital signs: Blood pressure 112/65, heart rate 86, respiratory rate 18, pulse ox 94% on room air. Lab results WBC 10.03 proBNP 742 -Trop <0.017 -Platelet up to 171 from 167 -K+ down from 3.9 to 3.3 -Mg 1.7 from 1.6 -GFR >60 -Cre 0.7 -D-dimer 0.82 from 0.65 -LDH from 237 to 243 -CRP 0.9 -ProBNP 742 down to 344 PLAN Remdesivir day 2. daily weights strict I&O Convalescent plasma 1 unit given Fiorcet for headache pain Continue O2 supplementation for goal O2 sat above 92% Incentive spirometer Oral potassium supplementation -IV magnesium infusion Renally dose medications Repeat labs as needed Physical therapy/Occupational therapy for strengthening and plan for dc to home. Code Status: DNR/DNI GI: not warranted Plan for patient to be here for four more days due to Remdesivir therapy. Continue O2 therapy as needed. PT/OT recommending pt be discharged to SNF. Case management and social insurance specialist to assist with placement upon discharge. 07/11/2020 COVID 19 much better today. More alert. Says her headache is much better. Remdesivir day 3 -crackles to bilateral bases. Encourage IS Q 1 hour. Vital signs: Blood pressure 109/87, heart rate , respiratory rate 16, pulse ox 95% on room air. Lab results WBC 4.64 -Platelet up to 171 from 166 -K+ 4.7 -Mg 2.2 -GFR 53 -Cre 1.0 -BUN 27 PLAN Remdesivir day 3. daily weights strict I&O Continue O2 supplementation for goal O2 sat above 92%. Currently on room air Incentive spirometer Renally dose medications Repeat labs as needed Physical therapy/Occupational therapy for strengthening and plan for dc to home. Code Status: DNR/DNI GI: not warranted VTE prophylaxis: Lovenox Plan for patient to be here for 3 more days due to Remdesivir therapy. Continue O2 therapy as needed. PT/OT recommending pt be discharged to SNF versus home with home health care. Case management and social insurance specialist to assist with placement upon discharge. 07/12/2020 COVID 19 doing well. Headache and nausea are gone Remdesivir day 4 -Lungs clear. Continue IS Q 1 hour. -Discharged from OT Vital signs: Blood pressure 135/97, heart rate 69, respiratory rate 16, pulse ox 95% on room air. Lab results WBC 4.63 -Platelet 179 -K+ 4.5 -Mg 1.8 -GFR >60 -Cre 0.8 -BUN 25 -CRP 1.3 PLAN Remdesivir day 4. daily weights strict I&O Continue O2 supplementation for goal O2 sat above 92%. Currently on room air Incentive spirometer Renally dose medications Repeat labs as needed Physical therapy for strengthening and plan for dc to home. Code Status: DNR/DNI GI: not warranted VTE prophylaxis: Lovenox Plan for patient to be here for 2 more days due to Remdesivir therapy. PT/OT recommending pt be discharged to home independently. 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 -continue Myrbetriq Essential tremor -continue Propranolol Depression -continue Zoloft Non-Hodgkin lymphoma in remission -monitor labs Generalized weakness -encourage activity -PT/OT to eval and treat for strengthening for dc planning Nausea -Zofran prn Hypertension -continue losartan Hypothyroidism -continue Levothyroxine Covid 19 -continue to monitor for respiratory symptos -I&O, daily weights, vital signs -incentive spirometry, flutter valve -monitor labs -heart healthy diet -up with nursing assistance in room -Spiritual care -case management for discharge planning -hydrodynamics teacher consult for nutritional needs -telemetry -Remdesivir day 4 -O2 as needed to maintain O2 sats >92%
[2020-07-12] MEDS ORDERED: Lactated Ringers 500 ML IV ONE ×2 (12:38→14:39)
[2020-07-12] MEDS: REMDESIVIR 100 MG in Sodium Chloride 0.9% 100 ML IV SCH (14:11)
[2020-07-12] MEDS ORDERED: Lactated Ringers 1,000 ML IV SCH (14:45)
[2020-07-12] MEDS: Sertraline 25 MG Tab PO SCH (18:18)
[2020-07-12] MEDS: Latanoprost 0.005% Ophth Soln 2.5 ML Bottle EYERT SCH (22:13)
[2020-07-13] MEDS: Pantoprazole 40 MG Tab.CR PO SCH (07:40)
[2020-07-13] MEDS: Levothyroxine 100 MCG Tab PO SCH (07:40)
[2020-07-13] MEDS: Propranolol 60 MG Cap.ER PO SCH (09:29)
[2020-07-13] MEDS: Enoxaparin 40 MG/0.4 ML Syringe SUBCUT SCH (09:29)
[2020-07-13] MEDS: Fish Oil/Omega-3 Fatty Acids 1 Gm Cap PO SCH (09:29)
[2020-07-13] MEDS: Spironolactone 25 MG Tab PO SCH (09:29)
[2020-07-13] MEDS: Docusate Sodium 100 MG Cap PO SCH ×2 (09:30→20:53)
[2020-07-13] MEDS: Rosuvastatin 10 MG Tab PO SCH (09:30)
[2020-07-13] MEDS: Ascorbic Acid 500 MG Tab PO SCH (09:30)
[2020-07-13] MEDS: Timolol Maleate 0.5% Ophth Soln 5 ML Bottle EYEBOTH SCH ×2 (09:31→20:54)
[2020-07-13] MEDS: Mirabegron [Myrbetriq] 50 MG PO SCH (09:32)
[2020-07-13] MEDS: Brimonidine 0.2% Ophth Soln 5 ML Bottle EYEBOTH SCH ×2 (09:32→20:54)
[2020-07-13] MEDS: REMDESIVIR 100 MG in Sodium Chloride 0.9% 100 ML IV SCH (12:25)
--- NOTE | 2020-07-13 16:05 | PCM.PN ---
- General Info Date of Service: 07/13/20 Admission Dx/Problem (Free Text): Admission Diagnosis/Problem Admission Diagnosis/Problem Weakness Subjective Update: Evangelina is doing significantly better. Appetite is good and blood pressure is well controlled without being hypotensive. Losartan was held this morning and will be given tonight. Functional Status: Reports: Pain Controlled, Tolerating Diet, Ambulating - Review of Systems General: Reports: No Symptoms HEENT: Reports: No Symptoms Pulmonary: Reports: No Symptoms Cardiovascular: Reports: No Symptoms Gastrointestinal: Reports: No Symptoms Musculoskeletal: Reports: No Symptoms Neurological: Reports: No Symptoms - Patient Data Vitals - Most Recent: Last Vital Signs Temp 98.3 F 07/13/20 12:00 Pulse 82 07/13/20 12:00 Resp 16 07/13/20 12:00 BP 122/76 07/13/20 12:00 Pulse Ox 97 07/13/20 12:00 Weight - Most Recent: 69.445 kg I&O - Last 24 Hours: Intake & Output 07/13/20 07/13/20 07/13/20 06:59 14:59 22:59 Intake Total 650 Output Total 850 Balance -200 Bimal Results Last 24 Hours: Microbiology 07/08/20 09:49 Aerobic Blood Culture - Preliminary Blood - Venous - Lab Draw NO GROWTH AFTER 5 DAYS Anaerobic Blood Culture - Preliminary NO GROWTH AFTER 5 DAYS 07/08/20 09:30 Aerobic Blood Culture - Preliminary Blood - Venous NO GROWTH AFTER 5 DAYS Anaerobic Blood Culture - Preliminary NO GROWTH AFTER 5 DAYS Med Orders - Current: Current Medications Acetaminophen (Tylenol) 650 mg PO Q4H PRN PRN Reason: Pain (Mild 1-3)/fever Last Admin: 07/10/20 20:28 Dose: 650 mg Documented by: Acetaminophen/Butalbital/Caffeine (Fioricet 325-50-40 Mg) 1 tab PO Q4H PRN PRN Reason: Headache Artificial Tears (Refresh Liquigel 1%) 0 ml EYEBOTH ASDIRECTED PRN PRN Reason: Dry Eyes Ascorbic Acid (Vitamin C) 1,000 mg PO DAILY [facility] Last Admin: 07/13/20 09:30 Dose: 1,000 mg Documented by: Brimonidine Tartrate (Alphagan 0.2% Ophth Soln) 0 ml EYEBOTH BID [facility] Last Admin: 07/13/20 09:32 Dose: 1 drop Documented by: Cyclobenzaprine HCl (Flexeril) 10 mg PO BEDTIME PRN PRN Reason: Muscle Spasm Docusate Sodium (Colace) 100 mg PO BID [facility] Last Admin: 07/13/20 09:30 Dose: 100 mg Documented by: Enoxaparin Sodium (Lovenox) 40 mg SUBCUT DAILY [facility] Last Admin: 07/13/20 09:29 Dose: 40 mg Documented by: Fish Oil (Fish Oil) 1 gm PO DAILY [facility] Last Admin: 07/13/20 09:29 Dose: 1 gm Documented by: Hydralazine HCl (Apresoline) 10 mg IVPUSH Q4H PRN PRN Reason: Hypertension Last Admin: 07/10/20 00:28 Dose: 10 mg Documented by: Latanoprost (Xalatan 0.005% Oph Soln) 0 ml EYERT BEDTIME [facility] Last Admin: 07/12/20 22:13 Dose: 1 drop Documented by: Levothyroxine Sodium (Synthroid) 100 mcg PO ACBREAKFAST [facility] Last Admin: 07/13/20 07:40 Dose: 100 mcg Documented by: Losartan Potassium (Cozaar) 50 mg PO DAILY@1800 [facility] Ondansetron HCl (Zofran) 4 mg IV Q4H PRN PRN Reason: Nausea/Vomiting Last Admin: 07/10/20 01:10 Dose: 4 mg Documented by: Pantoprazole Sodium (Protonix) 40 mg PO DAILY@0700 [facility] Last Admin: 07/13/20 07:40 Dose: 40 mg Documented by: Mirabegron [ (Myrbetriq] 50 Mg) 0 each PO DAILY [facility] Last Admin: 07/13/20 09:32 Dose: Not Given Documented by: Propranolol HCl (Inderal La) 60 mg PO DAILY [facility] Last Admin: 07/13/20 09:29 Dose: 60 mg Documented by: Rosuvastatin Calcium (Crestor) 5 mg PO DAILY [facility] Last Admin: 07/13/20 09:30 Dose: 5 mg Documented by: Sertraline HCl (Zoloft) 25 mg PO QPM [facility] Last Admin: 07/12/20 18:18 Dose: 25 mg Documented by: Sodium Chloride (Saline Flush) 10 ml FLUSH ASDIRECTED PRN PRN Reason: Keep Vein Open Last Admin: 07/08/20 09:52 Dose: 10 ml Documented by: Spironolactone (Aldactone) 25 mg PO DAILY [facility] Last Admin: 07/13/20 09:29 Dose: 25 mg Documented by: Timolol Maleate (Timoptic 0.5% Ophth Soln) 0 ml EYEBOTH BID [facility] Last Admin: 07/13/20 09:31 Dose: 1 drop Documented by: Discontinued Medications Acetaminophen (Tylenol) 975 mg PO NOW ONE Stop: 07/08/20 11:11 Last Admin: 07/08/20 11:15 Dose: 975 mg Documented by: Enoxaparin Sodium (Lovenox) 40 mg SUBCUT Q24H [facility] Stop: 07/09/20 18:00 Last Admin: 07/09/20 16:11 Dose: 40 mg Documented by: Sodium Chloride (Normal Saline) 1,000 mls @ 125 mls/hr IV BOLUS ONE; Protocol Stop: 07/08/20 17:18 Last Admin: 07/08/20 09:51 Dose: 125 mls/hr Documented by: Sodium Chloride (Normal Saline) 1,000 mls @ 75 mls/hr IV ASDIRECTED [facility] Magnesium Sulfate 2 gm/ Premix 50 mls @ 25 mls/hr IV ONETIME ONE Stop: 07/09/20 09:35 Last Admin: 07/09/20 08:38 Dose: 25 mls/hr Documented by: Sodium Chloride (Normal Saline) 1,000 mls @ 75 mls/hr IV ASDIRECTED [facility] Last Admin: 07/09/20 10:18 Dose: 75 mls/hr Documented by: Sodium Chloride (Normal Saline) 1,000 mls @ 200 mls/hr IV ASDIRECTED [facility] Stop: 07/09/20 16:29 Last Admin: 07/09/20 16:12 Dose: 75 mls/hr Documented by: Remdesivir 200 mg/ Sodium (Chloride) 250 mls @ 250 mls/hr IV ONETIME ONE Stop: 07/09/20 13:29 Last Admin: 07/09/20 12:18 Dose: 250 mls/hr Documented by: Remdesivir 100 mg/ Sodium (Chloride) 100 mls @ 100 mls/hr IV Q24H [facility] Stop: 07/13/20 12:59 Last Admin: 07/13/20 12:25 Dose: 100 mls/hr Documented by: Sodium Chloride (Normal Saline) 250 mls @ 100 mls/hr IV ASDIRECTED [facility] Last Admin: 07/09/20 17:40 Dose: 100 mls/hr Documented by: Magnesium Sulfate 2 gm/ Premix 50 mls @ 25 mls/hr IV ONETIME ONE Stop: 07/10/20 11:59 Last Admin: 07/10/20 10:19 Dose: 25 mls/hr Documented by: Sodium Chloride (Normal Saline) Confirm Administered Dose 100 mls @ as directed .ROUTE .STK-MED ONE Stop: 07/11/20 11:56 Last Admin: 07/11/20 13:32 Dose: Not Given Documented by: Lactated Ringer's (Ringers, Lactated) 500 mls @ 500 mls/hr IV .BOLUS ONE Stop: 07/12/20 13:37 Last Admin: 07/12/20 13:03 Dose: 500 mls/hr Documented by: Lactated Ringer's (Ringers, Lactated) 500 mls @ 500 mls/hr IV .BOLUS ONE Stop: 07/12/20 15:38 Last Admin: 07/12/20 15:33 Dose: 500 mls/hr Documented by: Lactated Ringer's (Ringers, Lactated) 1,000 mls @ 100 mls/hr IV ASDIRECTED [facility] Latanoprost (Xalatan 0.005% Oph Soln) 0 ml EYERT QPM [facility] Lorazepam (Ativan) 1 mg PO ONETIME ONE Stop: 07/10/20 01:59 Last Admin: 07/10/20 02:07 Dose: 1 mg Documented by: Losartan Potassium (Cozaar) 50 mg PO DAILY [facility] Losartan Potassium (Cozaar) 75 mg PO DAILY [facility] Last Admin: 07/09/20 08:41 Dose: 75 mg Documented by: Losartan Potassium (Cozaar) 50 mg PO DAILY [facility] Last Admin: 07/12/20 09:16 Dose: 50 mg Documented by: Non-Formulary Medication (Betamethasone/Propylene Glyc [Betamethasone Dp Aug 0.05% Oin]) 1 applic TOP BID [facility] Last Admin: 07/12/20 21:14 Dose: Not Given Documented by: Ondansetron HCl (Zofran) 4 mg IVPUSH ONETIME ONE Stop: 07/08/20 09:25 Last Admin: 07/08/20 09:52 Dose: 4 mg Documented by: Potassium Chloride (Klor-Con M20) 40 meq PO ONETIME ONE Stop: 07/08/20 15:01 Last Admin: 07/08/20 16:00 Dose: 40 meq Documented by: Potassium Chloride (Klor-Con M20) 40 meq PO BID [facility] Stop: 07/11/20 09:01 Last Admin: 07/11/20 09:02 Dose: 40 meq Documented by: Trazodone HCl (Trazodone) 50 mg PO ONETIME ONE Stop: 07/10/20 00:03 Last Admin: 07/10/20 00:19 Dose: 50 mg Documented by: - Exam Quality Assessment: No: Supplemental Oxygen General: Alert, Oriented HEENT: Pupils Equal, Mucous Membr. Moist/[place] Neck: Supple Lungs: Normal Respiratory Effort, Crackles (Bibasilar) Cardiovascular: Regular Rate, Regular Rhythm GI/Abdominal Exam: Normal Bowel Sounds, Soft, Non-Tender, No Organomegaly, No Distention, No Abnormal Bruit Extremities: Normal Inspection, Normal Range of Motion, Non-Tender, No Pedal Edema, Normal Capillary Refill Skin: Warm, Dry, Intact Psy/Mental Status: Alert, Normal Affect, Normal Mood Sepsis Event Note - Evaluation Sepsis Screening Result: No Definite Risk - Focused Exam Vital Signs: Vital Signs Temp Temp Pulse Pulse Resp BP BP 07/13/20 12:00 98.3 F 82 16 122/76 07/13/20 09:28 98.2 F 16 111/68 07/13/20 08:00 70 07/13/20 05:04 98.2 F 66 14 140/88 Pulse Ox 07/13/20 12:00 97 07/13/20 09:28 07/13/20 08:00 96 07/13/20 05:04 96 - Problem List & Annotations (1) COVID-19 SNOMED Code(s): 463804635 Code(s): U07.1 - COVID-19 Status: Acute Priority: High Current Visit: Yes (2) Generalized weakness SNOMED Code(s): 40584329 Code(s): R53.1 - WEAKNESS Status: Acute Priority: High Current Visit: Yes (3) Essential tremor SNOMED Code(s): 194698521 Code(s): G25.0 - ESSENTIAL TREMOR Status: Chronic Priority: Low Current Visit: Yes (4) Hypertension SNOMED Code(s): 06566413 Code(s): I10 - ESSENTIAL (PRIMARY) HYPERTENSION Status: Chronic Priority: High Current Visit: No Qualifiers: Hypertension type: unspecified Qualified Code(s): I10 - Essential (primary) hypertension (5) Hypothyroidism SNOMED Code(s): 27930773 Code(s): E03.9 - HYPOTHYROIDISM, UNSPECIFIED Status: Chronic Priority: Medium Current Visit: No Qualifiers: Hypothyroidism type: unspecified Qualified Code(s): E03.9 - Hypothyroidism, unspecified - Problem List Review Problem List Initiated/Reviewed/Updated: Yes - Assessment Assessment:: Assessment:: 07/09/2020 COVID 19 weaker today with increased complaints of headache pain and generalized aches not relieved by Tylenol. Rapid response called on the patient today when she was up to the bathroom to void. The nurse reported that the patient ambulated to the bathroom and when she sat down on the toilet, she then complained of feeling dizzy and nauseated and then slumped to her right side. Initially not arousable to voice, but then slowly came around. TLM showed 3 sec of bigeminal pvc's with a rate of 85. Once patient was arousable, she then had a small amount of emesis. Rapid response team assisted her back into bed in the supine position and the patient reported feeling better. EKG reveals an ectopic atrial rhythm without ST elevation or depression. Rate of 66. Pt is now requiring 1 liter of O2 per nasal cannula for O2 sats of 87 on room air. Troponin 0.025. BNP 742. Pt is orthostatic 124/60 supine, 78/42 standing. Pt will receive 1 liter of NS at a rate of 200ml/hr. Will reassess after liter in. Remdesivir to be started due to the patient requiring O2. Convalescent plasma ordered. Vital signs: Blood pressure 124/60, heart rate 81, respiratory rate 12, pulse ox 96% on 1 liter per nasal cannula Lab results WBC 4.54 proBNP 742 -Trop 0.025 -Platelet down 172-167 -K+ up from 3.4-3.9 -Mg 1.6 received 2gm MG IV -GFR >60 PLAN Remdesivir day 1. Spoke with patient regarding starting Remdesivir infusion. Discussed the risks and the benefits including kidney and liver injury and patient is agreeable to receiving infusion. daily weights strict I&O Convalescent Plasma ordered to be transfused tomorrow once it is available as we do not have this in the hospital. Fiorcet for headache pain Continue O2 supplementation for goal O2 sat above 92% Incentive spirometer repeat Troponin. Renally dose medications Repeat labs as needed Physical therapy/Occupational therapy for strengthening and plan for dc to home. -If platelets continue to decrease, will dc lovenox and start heparin. Code Status: DNR/DNI GI: not warranted Plan for patient to be here for five days due to Remdesivir therapy. Continue O2 therapy. Therapies to see patient for strengthening and discharge planning as patient is not safe to go home due to weakness. 07/10/2020 COVID 19 lethargic today. Pt did not sleep much last night. Received ativan early this morning. Remdesivir day 2. -received 1 unit of convalescent plasma last evening. Per Dr. Ayala, the patient had a hypertensive episode shortly into the transfusion. Transfusion was stopped and then resumed about an hour later and the patient tolerated it. Early this morning, the patient developed shortness of breath and chest pain. Chest pain resolved. Troponin <0.017. Pt was then given Ativan and this seemed to resolve her symptoms. -on room air Vital signs: Blood pressure 112/65, heart rate 86, respiratory rate 18, pulse ox 94% on room air. Lab results WBC 10.03 proBNP 742 -Trop <0.017 -Platelet up to 171 from 167 -K+ down from 3.9 to 3.3 -Mg 1.7 from 1.6 -GFR >60 -Cre 0.7 -D-dimer 0.82 from 0.65 -LDH from 237 to 243 -CRP 0.9 -ProBNP 742 down to 344 PLAN Remdesivir day 2. daily weights strict I&O Convalescent plasma 1 unit given Fiorcet for headache pain Continue O2 supplementation for goal O2 sat above 92% Incentive spirometer Oral potassium supplementation -IV magnesium infusion Renally dose medications Repeat labs as needed Physical therapy/Occupational therapy for strengthening and plan for dc to home. Code Status: DNR/DNI GI: not warranted Plan for patient to be here for four more days due to Remdesivir therapy. Continue O2 therapy as needed. PT/OT recommending pt be discharged to SNF. Case management and psychologist social to assist with placement upon discharge. 07/11/2020 COVID 19 much better today. More alert. Says her headache is much better. Remdesivir day 3 -crackles to bilateral bases. Encourage IS Q 1 hour. Vital signs: Blood pressure 109/87, heart rate , respiratory rate 16, pulse ox 95% on room air. Lab results WBC 4.64 -Platelet up to 171 from 166 -K+ 4.7 -Mg 2.2 -GFR 53 -Cre 1.0 -BUN 27 PLAN Remdesivir day 3. daily weights strict I&O Continue O2 supplementation for goal O2 sat above 92%. Currently on room air Incentive spirometer Renally dose medications Repeat labs as needed Physical therapy/Occupational therapy for strengthening and plan for dc to home. Code Status: DNR/DNI GI: not warranted VTE prophylaxis: Lovenox Plan for patient to be here for 3 more days due to Remdesivir therapy. Continue O2 therapy as needed. PT/OT recommending pt be discharged to SNF versus home with home health care. Case management and psychologist social to assist with placement upon discharge. 07/12/2020 COVID 19 doing well. Headache and nausea are gone Remdesivir day 4 -Lungs clear. Continue IS Q 1 hour. -Discharged from OT Vital signs: Blood pressure 135/97, heart rate 69, respiratory rate 16, pulse ox 95% on room air. Lab results WBC 4.63 -Platelet 179 -K+ 4.5 -Mg 1.8 -GFR >60 -Cre 0.8 -BUN 25 -CRP 1.3 PLAN Remdesivir day 4. daily weights strict I&O Continue O2 supplementation for goal O2 sat above 92%. Currently on room air Incentive spirometer Renally dose medications Repeat labs as needed Physical therapy for strengthening and plan for dc to home. 07/13/2020 COVID-19 Hypertension * Significantly improved * Last day of remdesivir * More active and able to ambulate with minimal assist * Blood pressure this morning is in the 120s systolic. * Labs show a normal d-dimer of 0.41 and a CRP of 1.3 * Renal function normal, creatinine 0.8 with estimated GFR of greater than 60. BUN 25. * Continue incentive spirometer Code Status: DNR/DNI GI: not warranted VTE prophylaxis: Lovenox Plan for patient to be here for 2 more days due to Remdesivir therapy. PT/OT recommending pt be discharged to home independently. 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 -continue Myrbetriq Essential tremor -continue Propranolol Depression -continue Zoloft Non-Hodgkin lymphoma in remission -monitor labs Generalized weakness -encourage activity -PT/OT to eval and treat for strengthening for dc planning Nausea -Zofran prn Hypertension -Change losartan to nightly and decreased to 25 mg -Continue spironolactone and propranolol in the morning -Check orthostatics tomorrow Hypothyroidism -continue Levothyroxine Covid 19 -continue to monitor for respiratory symptos -I&O, daily weights, vital signs -incentive spirometry, flutter valve -monitor labs -heart healthy diet -up with nursing assistance in room -Spiritual care -case management for discharge planning -production control supervisor consult for nutritional needs -telemetry -Remdesivir day 4 -O2 as needed to maintain O2 sats >92%
[2020-07-13] MEDS ORDERED: Losartan 25 MG Tab PO SCH ×2 (18:00→21:00)
[2020-07-13] MEDS: Sertraline 25 MG Tab PO SCH (18:25)
[2020-07-13] MEDS: Latanoprost 0.005% Ophth Soln 2.5 ML Bottle EYERT SCH (20:54)
[2020-07-14] MEDS: Pantoprazole 40 MG Tab.CR PO SCH (06:23)
[2020-07-14] MEDS: Levothyroxine 100 MCG Tab PO SCH (06:23)
[2020-07-14] MEDS: Fish Oil/Omega-3 Fatty Acids 1 Gm Cap PO SCH (09:19)
[2020-07-14] MEDS: Spironolactone 25 MG Tab PO SCH (09:19)
[2020-07-14] MEDS: Docusate Sodium 100 MG Cap PO SCH (09:19)
[2020-07-14] MEDS: Ascorbic Acid 500 MG Tab PO SCH (09:19)
[2020-07-14] MEDS: Rosuvastatin 10 MG Tab PO SCH (09:19)
[2020-07-14] MEDS: Propranolol 60 MG Cap.ER PO SCH (09:20)
[2020-07-14] MEDS: Timolol Maleate 0.5% Ophth Soln 5 ML Bottle EYEBOTH SCH (09:21)
[2020-07-14] MEDS: Brimonidine 0.2% Ophth Soln 5 ML Bottle EYEBOTH SCH (09:21)
[2020-07-14] MEDS: Mirabegron [Myrbetriq] 50 MG PO SCH (09:22)
[2020-07-14 09:26] VITALS: BP 115/60; PULSE 75
[2020-07-14] MEDS: Ondansetron 4 MG/2 ML SDV IV PRN (10:19)
[2020-07-14] MEDS: Enoxaparin 40 MG/0.4 ML Syringe SUBCUT SCH (10:28)
--- NOTE | 2020-07-14 12:42 | PCM.DCSUM1 ---
Discharge Summary - Hospital Course HPI Initial Comments: Evangelina is a 84 year old female who presented to the ED by [facility] with complaints of chest pain and cough and sore throat. She states that these symptoms started two days ago and she believed that she was just getting a cold. Generalized weakness and nausea were also noted. She is short of breath and has a headache at present. She denies vomiting but has been nauseated. She states that she still has an appetite and has been eating frequent small meals. She has a history of urinary incontinence. History of non Hodgkin's lymphoma that has been in remission for about a year. She has a port to her right chest. In the ED chest xray revealed nothing acute. She had a temp of 98.7, pulse 100, RR 16, BP 190/82 and pulse ox was 96% on room air. CBC was unremarkable other than a platelet count of 172. ABG's reveal a pH of 7.47, pCO2 33.7 pO2 91.0, HCO3 24.1 on room air. D-dimer 0.65. Na 136, K+3.4, Anion Gap 15.4., lactic acid 1.0, LDH 237, CRP 1.1 Ferritin 37. UA was unremarkable. Blood cultures were obtained. SARS positive. NS was started at 125ml/hr. Diagnosis: Stroke: No - Discharge Data Discharge Date: 07/14/20 Discharge Disposition: Home, Self-Care 01 Condition: Stable - Referral to Home Health Primary Care Physician: Godwin Degroot MD - Discharge Diagnosis/Problem(s) (1) COVID-19 SNOMED Code(s): 638054904 ICD Code: U07.1 - COVID-19 Status: Acute Priority: High Current Visit: Yes (2) Generalized weakness SNOMED Code(s): 66399521 ICD Code: R53.1 - WEAKNESS Status: Acute Priority: High Current Visit: Yes (3) Essential tremor SNOMED Code(s): 565863886 ICD Code: G25.0 - ESSENTIAL TREMOR Status: Chronic Priority: Low Current Visit: Yes (4) Hypertension SNOMED Code(s): 69934706 ICD Code: I10 - ESSENTIAL (PRIMARY) HYPERTENSION Status: Chronic Priority: High Current Visit: No Qualifiers: Hypertension type: unspecified Qualified Code(s): I10 - Essential (primary) hypertension (5) Hypothyroidism SNOMED Code(s): 03089884 ICD Code: E03.9 - HYPOTHYROIDISM, UNSPECIFIED Status: Chronic Priority: Medium Current Visit: No Qualifiers: Hypothyroidism type: unspecified Qualified Code(s): E03.9 - Hypothyroidism, unspecified - Patient Summary/Data Consults: Consultations 07/08/20 13:52 Consult to Case Management/Extruding Department Supervisor [CONS] Routine Consult to Traveling Inventory Associate [CONS] Routine Consult to Spiritual Care [CONS] Routine 07/09/20 11:29 OT Evaluation and Treatment [CONS] Routine PT Evaluation and Treatment [CONS] Routine Hospital Course: 07/10/2020 COVID 19 lethargic today. Pt did not sleep much last night. Received ativan early this morning. Remdesivir day 2. -received 1 unit of convalescent plasma last evening. Per Dr. Ayala, the patient had a hypertensive episode shortly into the transfusion. Transfusion was stopped and then resumed about an hour later and the patient tolerated it. Early this morning, the patient developed shortness of breath and chest pain. Chest pain resolved. Troponin <0.017. Pt was then given Ativan and this seemed to resolve her symptoms. -on room air Vital signs: Blood pressure 112/65, heart rate 86, respiratory rate 18, pulse ox 94% on room air. Lab results WBC 10.03 proBNP 742 -Trop <0.017 -Platelet up to 171 from 167 -K+ down from 3.9 to 3.3 -Mg 1.7 from 1.6 -GFR >60 -Cre 0.7 -D-dimer 0.82 from 0.65 -LDH from 237 to 243 -CRP 0.9 -ProBNP 742 down to 344 PLAN Remdesivir day 2. daily weights strict I&O Convalescent plasma 1 unit given Fiorcet for headache pain Continue O2 supplementation for goal O2 sat above 92% Incentive spirometer Oral potassium supplementation -IV magnesium infusion Renally dose medications Repeat labs as needed Physical therapy/Occupational therapy for strengthening and plan for dc to home. Code Status: DNR/DNI GI: not warranted Plan for patient to be here for four more days due to Remdesivir therapy. Continue O2 therapy as needed. PT/OT recommending pt be discharged to SNF. Case management and manager social responsibility to assist with placement upon discharge. 07/11/2020 COVID 19 much better today. More alert. Says her headache is much better. Remdesivir day 3 -crackles to bilateral bases. Encourage IS Q 1 hour. Vital signs: Blood pressure 109/87, heart rate , respiratory rate 16, pulse ox 95% on room air. Lab results WBC 4.64 -Platelet up to 171 from 166 -K+ 4.7 -Mg 2.2 -GFR 53 -Cre 1.0 -BUN 27 PLAN Remdesivir day 3. daily weights strict I&O Continue O2 supplementation for goal O2 sat above 92%. Currently on room air Incentive spirometer Renally dose medications Repeat labs as needed Physical therapy/Occupational therapy for strengthening and plan for dc to home. Code Status: DNR/DNI GI: not warranted VTE prophylaxis: Lovenox Plan for patient to be here for 3 more days due to Remdesivir therapy. Continue O2 therapy as needed. PT/OT recommending pt be discharged to SNF versus home with home health care. Case management and manager social responsibility to assist with placement upon discharge. 07/12/2020 COVID 19 doing well. Headache and nausea are gone Remdesivir day 4 -Lungs clear. Continue IS Q 1 hour. -Discharged from OT Vital signs: Blood pressure 135/97, heart rate 69, respiratory rate 16, pulse ox 95% on room air. Lab results WBC 4.63 -Platelet 179 -K+ 4.5 -Mg 1.8 -GFR >60 -Cre 0.8 -BUN 25 -CRP 1.3 PLAN Remdesivir day 4. daily weights strict I&O Continue O2 supplementation for goal O2 sat above 92%. Currently on room air Incentive spirometer Renally dose medications Repeat labs as needed Physical therapy for strengthening and plan for dc to home. 07/13/2020 COVID-19 Hypertension * Significantly improved * Last day of remdesivir * More active and able to ambulate with minimal assist * Blood pressure this morning is in the 120s systolic. * Labs show a normal d-dimer of 0.41 and a CRP of 1.3 * Renal function normal, creatinine 0.8 with estimated GFR of greater than 60. BUN 25. * Continue incentive spirometer 07/14/2020day of discharge * Patient is back to baseline. She has no complaints. She has finished her remdesivir and is off oxygen. - Patient Instructions Diet: Usual Diet as Tolerated Driving: Do Not Drive Showering/Bathing: May Shower Other/Special Instructions: Follow-up with primary care provider in the next 2 weeks. - Discharge Plan *PRESCRIPTION DRUG MONITORING PROGRAM REVIEWED*: No *COPY OF PRESCRIPTION DRUG MONITORING REPORT IN PATIENT GROVER: No Prescriptions/Med Rec: Losartan [Cozaar] 25 mg PO BEDTIME #30 tablet Home Medications: Home Meds Alendronate Sodium [Fosamax] 70 mg PO GONZALEZ 01/08/20 [History] Ascorbic Acid [Vitamin C] 1,000 mg PO DAILY 01/08/20 [History] B2/Vits A,C,E/Lut/Zeaxanth/Min [Icaps] 1 tab PO DAILY 01/08/20 [History] Brimonidine Tartrate/Timolol [Combigan 0.2%-0.5% Eye Drops] 1 drop OP BID 01/08/20 [History] Dexlansoprazole [Dexilant] 60 mg PO DAILY 01/08/20 [History] Docusate Sodium [Colace] 100 mg PO BID 01/08/20 [History] Fish Oil/[place]-3 Fatty Acids [Fish Oil 1,000 MG] 1,000 mg PO DAILY 01/08/20 [History] Levothyroxine [Synthroid] 100 mcg PO ACBREAKFAST 01/08/20 [History] Mirabegron [Myrbetriq] 50 mg PO DAILY 01/08/20 [History] Propranolol [Inderal LA] 60 mg PO DAILY 01/08/20 [History] Propylene Glycol/PEG 400/Pf [Systane 0.3-0.4% Eye Drop] 1 drop OP ASDIRECTED PRN 01/08/20 [History] Rosuvastatin [Crestor] 5 mg PO DAILY 01/08/20 [History] Sertraline [Zoloft] 25 mg PO QPM 01/08/20 [History] Spironolactone [Aldactone] 25 mg PO DAILY 01/08/20 [History] Betamethasone/Propylene Glyc [Betamethasone Dp Aug 0.05% Oin] 1 applic TOP BID 07/08/20 [History] Cyclobenzaprine [Flexeril] 10 mg PO BEDTIME PRN 07/08/20 [History] Latanoprost 1 drop EYERT BEDTIME 07/08/20 [History] Losartan [Cozaar] 25 mg PO BEDTIME #30 tablet 07/14/20 [Rx] timoloL maleate [Timoptic 0.5% Ophth Soln] 0 ml EYEBOTH BID bottle 07/14/20 [Rx] Patient Handouts: COVID-19, Weakness, [id number] Forms: ED Department Discharge Referrals: Godwin Degroot MD [Primary Care Provider] - (You will call and need to schedule and apt. with Dr. Degroot in the 7 days. ) - Discharge Summary/Plan Comment DC Time >30 min.: Yes Discharge Summary/Plan Comment: Continue isolation for another 6 days. Follow-up with primary care provider following isolation. - General Info Date of Service: 07/14/20 Admission Dx/Problem (Free Text: Admission Diagnosis/Problem Admission Diagnosis/Problem Weakness Functional Status: Reports: Pain Controlled - Review of Systems General: Reports: No Symptoms HEENT: Reports: No Symptoms Pulmonary: Reports: No Symptoms Cardiovascular: Reports: No Symptoms Gastrointestinal: Reports: No Symptoms - Patient Data Vitals - Most Recent: Last Vital Signs Temp 98.1 F 07/14/20 09:20 Pulse 75 07/14/20 09:25 Resp 16 07/14/20 09:20 BP 115/60 07/14/20 09:20 Pulse Ox 97 07/14/20 09:25 Weight - Most Recent: 69.899 kg I&O - Last 24 hours: Intake & Output 07/13/20 07/14/20 07/14/20 22:59 06:59 14:59 Intake Total 1740 450 Output Total 1100 675 Balance 640 -225 KWAME Results - Last 24 hrs: Microbiology 07/08/20 09:49 Aerobic Blood Culture - Preliminary Blood - Venous - Lab Draw NO GROWTH AFTER 6 DAYS Anaerobic Blood Culture - Preliminary NO GROWTH AFTER 6 DAYS 07/08/20 09:30 Aerobic Blood Culture - Preliminary Blood - Venous NO GROWTH AFTER 6 DAYS Anaerobic Blood Culture - Preliminary NO GROWTH AFTER 6 DAYS Med Orders - Current: Current Medications Acetaminophen (Tylenol) 650 mg PO Q4H PRN PRN Reason: Pain (Mild 1-3)/fever Last Admin: 07/10/20 20:28 Dose: 650 mg Documented by: Acetaminophen/Butalbital/Caffeine (Fioricet 325-50-40 Mg) 1 tab PO Q4H PRN PRN Reason: Headache Artificial Tears (Refresh Liquigel 1%) 0 ml EYEBOTH ASDIRECTED PRN PRN Reason: Dry Eyes Ascorbic Acid (Vitamin C) 1,000 mg PO DAILY PENDING SALE TO [facility] Last Admin: 07/14/20 09:19 Dose: 1,000 mg Documented by: Brimonidine Tartrate (Alphagan 0.2% Ophth Soln) 0 ml EYEBOTH BID PENDING SALE TO [facility] Last Admin: 07/14/20 09:21 Dose: 1 drop Documented by: Cyclobenzaprine HCl (Flexeril) 10 mg PO BEDTIME PRN PRN Reason: Muscle Spasm Docusate Sodium (Colace) 100 mg PO BID PENDING SALE TO [facility] Last Admin: 07/14/20 09:19 Dose: 100 mg Documented by: Enoxaparin Sodium (Lovenox) 40 mg SUBCUT DAILY PENDING SALE TO [facility] Last Admin: 07/14/20 10:28 Dose: 40 mg Documented by: Fish Oil (Fish Oil) 1 gm PO DAILY PENDING SALE TO [facility] Last Admin: 07/14/20 09:19 Dose: 1 gm Documented by: Hydralazine HCl (Apresoline) 10 mg IVPUSH Q4H PRN PRN Reason: Hypertension Last Admin: 07/10/20 00:28 Dose: 10 mg Documented by: Latanoprost (Xalatan 0.005% Ophth Soln) 0 ml EYERT BEDTIME PENDING SALE TO [facility] Last Admin: 07/13/20 20:54 Dose: 1 drop Documented by: Levothyroxine Sodium (Synthroid) 100 mcg PO ACBREAKFAST PENDING SALE TO [facility] Last Admin: 07/14/20 06:23 Dose: 100 mcg Documented by: Losartan Potassium (Cozaar) 25 mg PO BEDTIME PENDING SALE TO [facility] Last Admin: 07/13/20 20:53 Dose: 25 mg Documented by: Ondansetron HCl (Zofran) 4 mg IV Q4H PRN PRN Reason: Nausea/Vomiting Last Admin: 07/14/20 10:19 Dose: 4 mg Documented by: Pantoprazole Sodium (Protonix) 40 mg PO DAILY@0700 PENDING SALE TO [facility] Last Admin: 07/14/20 06:23 Dose: 40 mg Documented by: Mirabegron [ (Myrbetriq] 50 Mg) 0 each PO DAILY PENDING SALE TO [facility] Last Admin: 07/14/20 09:22 Dose: Not Given Documented by: Propranolol HCl (Inderal La) 60 mg PO DAILY PENDING SALE TO [facility] Last Admin: 07/14/20 09:20 Dose: 60 mg Documented by: Rosuvastatin Calcium (Crestor) 5 mg PO DAILY PENDING SALE TO [facility] Last Admin: 07/14/20 09:19 Dose: 5 mg Documented by: Sertraline HCl (Zoloft) 25 mg PO QPM PENDING SALE TO [facility] Last Admin: 07/13/20 18:25 Dose: 25 mg Documented by: Sodium Chloride (Saline Flush) 10 ml FLUSH ASDIRECTED PRN PRN Reason: Keep Vein Open Last Admin: 07/08/20 09:52 Dose: 10 ml Documented by: Spironolactone (Aldactone) 25 mg PO DAILY PENDING SALE TO [facility] Last Admin: 07/14/20 09:19 Dose: 25 mg Documented by: Timolol Maleate (Timoptic 0.5% Ophth Soln) 0 ml EYEBOTH BID PENDING SALE TO [facility] Last Admin: 07/14/20 09:21 Dose: 1 drop Documented by: Discontinued Medications Acetaminophen (Tylenol) 975 mg PO NOW ONE Stop: 07/08/20 11:11 Last Admin: 07/08/20 11:15 Dose: 975 mg Documented by: Enoxaparin Sodium (Lovenox) 40 mg SUBCUT Q24H PENDING SALE TO [facility] Stop: 07/09/20 18:00 Last Admin: 07/09/20 16:11 Dose: 40 mg Documented by: Sodium Chloride (Normal Saline) 1,000 mls @ 125 mls/hr IV BOLUS ONE; Protocol Stop: 07/08/20 17:18 Last Admin: 07/08/20 09:51 Dose: 125 mls/hr Documented by: Sodium Chloride (Normal Saline) 1,000 mls @ 75 mls/hr IV ASDIRECTED PENDING SALE TO [facility] Magnesium Sulfate 2 gm/ Premix 50 mls @ 25 mls/hr IV ONETIME ONE Stop: 07/09/20 09:35 Last Admin: 07/09/20 08:38 Dose: 25 mls/hr Documented by: Sodium Chloride (Normal Saline) 1,000 mls @ 75 mls/hr IV ASDIRECTED PENDING SALE TO [facility] Last Admin: 07/09/20 10:18 Dose: 75 mls/hr Documented by: Sodium Chloride (Normal Saline) 1,000 mls @ 200 mls/hr IV ASDIRECTED PENDING SALE TO [facility] Stop: 07/09/20 16:29 Last Admin: 07/09/20 16:12 Dose: 75 mls/hr Documented by: Remdesivir 200 mg/ Sodium (Chloride) 250 mls @ 250 mls/hr IV ONETIME ONE Stop: 07/09/20 13:29 Last Admin: 07/09/20 12:18 Dose: 250 mls/hr Documented by: Remdesivir 100 mg/ Sodium (Chloride) 100 mls @ 100 mls/hr IV Q24H CARTER Stop: 07/13/20 12:59 Last Admin: 07/13/20 12:25 Dose: 100 mls/hr Documented by: Sodium Chloride (Normal Saline) 250 mls @ 100 mls/hr IV ASDIRECTED CARTER Last Admin: 07/09/20 17:40 Dose: 100 mls/hr Documented by: Magnesium Sulfate 2 gm/ Premix 50 mls @ 25 mls/hr IV ONETIME ONE Stop: 07/10/20 11:59 Last Admin: 07/10/20 10:19 Dose: 25 mls/hr Documented by: Sodium Chloride (Normal Saline) Confirm Administered Dose 100 mls @ as directed .ROUTE .STK-MED ONE Stop: 07/11/20 11:56 Last Admin: 07/11/20 13:32 Dose: Not Given Documented by: Lactated Ringer's (Ringers, Lactated) 500 mls @ 500 mls/hr IV .BOLUS ONE Stop: 07/12/20 13:37 Last Admin: 07/12/20 13:03 Dose: 500 mls/hr Documented by: Lactated Ringer's (Ringers, Lactated) 500 mls @ 500 mls/hr IV .BOLUS ONE Stop: 07/12/20 15:38 Last Admin: 07/12/20 15:33 Dose: 500 mls/hr Documented by: Lactated Ringer's (Ringers, Lactated) 1,000 mls @ 100 mls/hr IV ASDIRECTED PENDING SALE TO [facility] Latanoprost (Xalatan 0.005% Oph Soln) 0 ml EYERT QPM CARTER Lorazepam (Ativan) 1 mg PO ONETIME ONE Stop: 07/10/20 01:59 Last Admin: 07/10/20 02:07 Dose: 1 mg Documented by: Losartan Potassium (Cozaar) 50 mg PO DAILY PENDING SALE TO [facility] Losartan Potassium (Cozaar) 75 mg PO DAILY PENDING SALE TO [facility] Last Admin: 07/09/20 08:41 Dose: 75 mg Documented by: Losartan Potassium (Cozaar) 50 mg PO DAILY PENDING SALE TO [facility] Last Admin: 07/12/20 09:16 Dose: 50 mg Documented by: Losartan Potassium (Cozaar) 50 mg PO DAILY@1800 PENDING SALE TO [facility] Non-Formulary Medication (Betamethasone/Propylene Glyc [Betamethasone Dp Aug 0.05% Oin]) 1 applic TOP BID PENDING SALE TO [facility] Last Admin: 07/12/20 21:14 Dose: Not Given Documented by: Ondansetron HCl (Zofran) 4 mg IVPUSH ONETIME ONE Stop: 07/08/20 09:25 Last Admin: 07/08/20 09:52 Dose: 4 mg Documented by: Potassium Chloride (Klor-Con M20) 40 meq PO ONETIME ONE Stop: 07/08/20 15:01 Last Admin: 07/08/20 16:00 Dose: 40 meq Documented by: Potassium Chloride (Klor-Con M20) 40 meq PO BID PENDING SALE TO [facility] Stop: 07/11/20 09:01 Last Admin: 07/11/20 09:02 Dose: 40 meq Documented by: Trazodone HCl (Trazodone) 50 mg PO ONETIME ONE Stop: 07/10/20 00:03 Last Admin: 07/10/20 00:19 Dose: 50 mg Documented by: - Exam Quality Assessment: Denies: Supplemental Oxygen General: Reports: Alert, Oriented HEENT: Reports: Pupils Equal, Mucous Membr. Moist/[place] Neck: Reports: Supple Lungs: Reports: Clear to Auscultation, Normal Respiratory Effort Cardiovascular: Reports: Regular Rate, Regular Rhythm Extremities: Normal Inspection, No Pedal Edema, Normal Capillary Refill Neurological: Reports: No New Focal Deficit Psy/Mental Status: Reports: Alert
== END 2020-07-14 15:10 | disposition home or self-care (01) | DRG 178 ==
LOC: SUPCPDRO 08:55 → JD.ED 08:55 → JD.MS 11:48
PROVIDERS: ADMIT Family Medicine; ATTEND Family Medicine
PROC: 8E0ZXY6 Isolation (ICD-10-PCS; 2020-07-08)
PROC: XW033E5 Introduction of Remdesivir Anti-infective into Peripheral Vein, Percutaneous Approach, New Technology Group 5 (ICD-10-PCS; principal; 2020-07-09)
PROC: XW033E5 Introduction of Remdesivir Anti-infective into Peripheral Vein, Percutaneous Approach, New Technology Group 5 (ICD-10-PCS; 2020-07-10)
PROC: XW14325 Transfusion of Convalescent Plasma (Nonautologous) into Central Vein, Percutaneous Approach, New Technology Group 5 (ICD-10-PCS; 2020-07-10)
PROC: XW033E5 Introduction of Remdesivir Anti-infective into Peripheral Vein, Percutaneous Approach, New Technology Group 5 (ICD-10-PCS; 2020-07-11)
PROC: XW033E5 Introduction of Remdesivir Anti-infective into Peripheral Vein, Percutaneous Approach, New Technology Group 5 (ICD-10-PCS; 2020-07-12)
PROC: XW033E5 Introduction of Remdesivir Anti-infective into Peripheral Vein, Percutaneous Approach, New Technology Group 5 (ICD-10-PCS; 2020-07-13)
DX: U07.1 COVID-19 (principal); R53.1 Weakness; H54.7 Unspecified visual loss; C85.90 Non-Hodgkin lymphoma, unspecified, unspecified site; N39.41 Urge incontinence; Z86.010 Personal history of colon polyps; G25.0 Essential tremor; Z98.890 Other specified postprocedural states; Z79.890 Hormone replacement therapy; I10 Essential (primary) hypertension; E03.9 Hypothyroidism, unspecified; Z95.828 Presence of other vascular implants and grafts; Z66 Do not resuscitate; E78.00 Pure hypercholesterolemia, unspecified; F41.9 Anxiety disorder, unspecified; F32.9 Major depressive disorder, single episode, unspecified; D64.9 Anemia, unspecified; M19.90 Unspecified osteoarthritis, unspecified site; H35.30 Unspecified macular degeneration; K27.9 Peptic ulcer, site unspecified, unspecified as acute or chronic, without hemorrhage or perforation; Z87.01 Personal history of pneumonia (recurrent); Z79.899 Other long term (current) drug therapy; Z90.49 Acquired absence of other specified parts of digestive tract; R07.9 Chest pain, unspecified
CPT/HCPCS: 36415; 36600; 71045; 80053; 81001; 82728; 82803; 83605; 83615; 84484; 85007; 85027; 85379; 85610; 86140; 87040 ×2; 93005; 96361; 96374; 99285; A9270; J2405; J7030; U0002; 36430; 83735; 83880; 84100; 85025; 86900; 86901; 93010; 94667; 94760; 97110-GP; 97116-GP; 97162-GP; 97165-GO; 97530-GO; 99222; 99232; 99239; 99284; J0360; J1642; J1650; J3475; J7050; J7120; P9017

== ENCOUNTER 2020-10-16 17:34 | Emergency (ER) | payer MEDICARE, OTHER ==
[2020-10-16 17:50] VITALS: PULSE 79
[2020-10-16] MEDS ORDERED: HYDROmorphone 0.5 MG/0.5 ML Syringe IVPUSH ONE ×2 (18:30→20:04)
[2020-10-16] MEDS ORDERED: Ondansetron 4 MG/2 ML SDV IVPUSH ONE ×2 (18:30→20:04)
--- NOTE | 2020-10-16 18:37 | EDM.PDOC ---
<Lizett Cervantes V - Last Filed: 10/16/20 21:12> ED HPI GENERAL MEDICAL PROBLEM - General Chief Complaint: Abdominal Pain Stated Complaint: LT SIDE FLANK PAIN/CHEST PAIN Time Seen by Provider: 10/16/20 18:23 Source of Information: Reports: Patient, RN Notes Reviewed History Limitations: Reports: No Limitations - History of Present Illness INITIAL COMMENTS - FREE TEXT/NARRATIVE: Patient is an 84-year-old female who presents to the ED for her sudden onset left flank pain. She notes that around 3 PM, she developed some sharp sudden left-sided abdomen pain. This did have associated nausea and vomiting with it. She is also complaining some pain into her shoulder blades and chest pain. She notes that she has had kidney stones in the past and this seems like the pain she felt from kidney stones prior to this. She had COVID-19 in June. She is not complaining of any dysuria, frequency or urgency. She would rate her pain a 10 out of 10 and she did not get to take any sort of medications prior to coming to the ER. Patient notes she is still nauseous, but has not vomited in the ER. She denies any diarrhea. She notes that the pain does wrap around into her left groin. Left Abdomen Pain Score (Numeric/FACES): 10 - Related Data Allergies Allergy/AdvReac Type Severity Reaction Status Date / Time No Known Allergies Allergy Verified 10/16/20 17:50 Home Meds: Home Meds Alendronate Sodium [Fosamax] 70 mg PO GONZALEZ 01/08/20 [History] Ascorbic Acid [Vitamin C] 1,000 mg PO DAILY 01/08/20 [History] B2/Vits A,C,E/Lut/Zeaxanth/Min [Icaps] 1 tab PO DAILY 01/08/20 [History] Brimonidine Tartrate/Timolol [Combigan 0.2%-0.5% Eye Drops] 1 drop OP BID 01/08/20 [History] Dexlansoprazole [Dexilant] 60 mg PO DAILY 01/08/20 [History] Docusate Sodium [Colace] 100 mg PO BID 01/08/20 [History] Fish Oil/[place]-3 Fatty Acids [Fish Oil 1,000 MG] 1,000 mg PO DAILY 01/08/20 [History] Levothyroxine [Synthroid] 100 mcg PO ACBREAKFAST 01/08/20 [History] Mirabegron [Myrbetriq] 50 mg PO DAILY 01/08/20 [History] Propranolol [Inderal LA] 60 mg PO DAILY 01/08/20 [History] Propylene Glycol/PEG 400/Pf [Systane 0.3-0.4% Eye Drop] 1 drop OP ASDIRECTED PRN 01/08/20 [History] Rosuvastatin [Crestor] 5 mg PO DAILY 01/08/20 [History] Sertraline [Zoloft] 25 mg PO QPM 01/08/20 [History] Spironolactone [Aldactone] 25 mg PO DAILY 01/08/20 [History] Betamethasone/Propylene Glyc [Betamethasone Dp Aug 0.05% Oin] 1 applic TOP BID 07/08/20 [History] Cyclobenzaprine [Flexeril] 10 mg PO BEDTIME PRN 07/08/20 [History] Latanoprost 1 drop EYERT BEDTIME 07/08/20 [History] Losartan [Cozaar] 25 mg PO BEDTIME #30 tablet 07/14/20 [Rx] timoloL maleate [Timoptic 0.5% Ophth Soln] 0 ml EYEBOTH BID bottle 07/14/20 [Rx] Past Medical History HEENT History: Reports: Impaired Vision, Macular Degeneration Other HEENT History: Glasses Cardiovascular History: Reports: High Cholesterol, Hypertension Other Cardiovascular History: 'legs swell' Respiratory History: Reports: Bronchitis, Recurrent, Pneumonia, Recurrent Gastrointestinal History: Reports: PUD Genitourinary History: Reports: Urinary Incontinence, UTI, Recurrent Other Genitourinary History: Urgency, surgery to assist with and it helped for a few years but now she has trouble holding her bladder again. 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 Hematologic History: Reports: Anemia Immunologic History: Reports: Immunosuppression Oncologic (Cancer) History: Reports: Non-Hodgkin's Lymphoma Other Oncologic History: remission for about a year Dermatologic History: Reports: Psoriasis - Infectious Disease History Infectious Disease History: Reports: Influenza, Measles, Mumps, Novel Coronavirus (jun 2020) - Past Surgical History HEENT Surgical History: Reports: Cataract Surgery Other HEENT Surgeries/Procedures: Laser surgery after cataract surgery. GI Surgical History: Reports: Appendectomy, Cholecystectomy Other GI Surgeries/Procedures: 2 colon surgeries to remove polyps. Musculoskeletal Surgical History: Reports: Knee Replacement Other Musculoskeletal Surgeries/Procedures:: 2 back surgeries Social & Family History - Family History Family Medical History: No Pertinent Family History - Tobacco Use Tobacco Use Status *Q: Never Tobacco User Second Hand Smoke Exposure: No - Caffeine Use Caffeine Use: Reports: Coffee - Recreational Drug Use Recreational Drug Use: No ED ROS GENERAL - Review of Systems Review Of Systems: Comprehensive ROS is negative, except as noted in HPI. ED EXAM, RENAL/ - Physical Exam Exam: See Below Exam Limited By: No Limitations General Appearance: Alert, WD/WN, No Apparent Distress Respiratory/Chest: No Respiratory Distress, Lungs Clear, Normal Breath Sounds, No Accessory Muscle Use, Chest Non-Tender Cardiovascular: Normal Peripheral Pulses, Regular Rate, Rhythm, No Edema GI/Abdominal: Normal Bowel Sounds, Soft, Non-Tender, No Distention, No Mass Back Exam: No: CVA Tenderness (L) Extremities: Normal Inspection, Normal Capillary Refill Neurological: Alert, Oriented, Normal Cognition, No Motor/Sensory Deficits Psychiatric: Normal Affect, Normal Mood Skin Exam: Warm, Dry, Intact, Normal Color, No Rash #1 Interpretation EKG Date: 10/16/20 Time: 17:46 Rhythm: NSR Rate (Beats/Min): 79 [place]: Normal P-Wave: Present QRS: Normal ST-T: Normal QT: Normal Comparison: NA - No Prior EKG EKG Interpretation Comments: No obvious ischemia or acute ST changes noted, reviewed by myself and Dr. Romero. Course - Re-Assessments/Exams Free Text/Narrative Re-Assessment/Exam: 10/16/20 18:36 Patient presents to the ED for sudden onset left flank pain. Findings are most likely consistent with a kidney stone. Labs were obtained at time of triage along with EKG to include CBC, CMP, troponin. We will add on a cath urine specimen and an abdomen pelvis CT without contrast for further evaluation. 10/16/20 19:38 CT has been done, and there does appear to be at least a 4 mm stone within the left UPJ, I appreciate some perinephric stranding. The patient has not provided a urine at this time for further evaluation. All other labs are essentially unremarkable, we will give her some IV fluids for ongoing management. Official radiology report is still pending at this time. 10/16/20 20:[address] did come back and shows a 5.6 mm obstructing stone within the proximal left ureter which causes inflammatory change around the kidney. There are other multiple small nonobstructing calculi within both kidneys. Urine is suggestive of an infection as well, white cell count is 10-20, and there is 75 200 red blood cells. Leukocyte Estrace positive nitrite negative. We will cons ult urology at this time due to infection present. 10/16/20 21:03 Dr. Ulloa was consulted at [facility] for urology, he would take the patient for stenting tomorrow. The patient will stay here over night with fluids/pain meds and nausea meds and be discharged in the AM for further urological management. The family will be able to take her in the AM. 10/16/20 21:15 I was in contact with one call at [facility] again, I talked with the hospitalist, Dr. Barrios regarding the impending transfer. She is aware of the patient. [facility] one call will call Dr. Crockett sometime at around 3:30 or 4 AM to check on the patient, and arrange for transfer plan. Departure - Departure Time of Disposition: 21:06 Disposition: DC/Tfer to Acute Hospital 02 Condition: Good Clinical Impression: Kidney stone on left side UTI (urinary tract infection) Qualifiers: Urinary tract infection type: acute cystitis Hematuria presence: with hematuria Qualified Code(s): N30.01 - Acute cystitis with hematuria - Discharge Information *PRESCRIPTION DRUG MONITORING PROGRAM REVIEWED*: No *COPY OF PRESCRIPTION DRUG MONITORING REPORT IN PATIENT GROVER: No Instructions: Kidney Stones, [id number], Urinary Tract Infection, Adult, [id number] Referrals: Godwin Degroot MD [Primary Care Provider] - Forms: ED Department Discharge Additional Instructions: You were evaluated in the ER tonight for your left-sided flank pain. You did a 5.9 mm kidney stone within your proximal left ureter, you also have an associated UTI. You were kept in the ER overnight and given IV fluids, IV anti biotics, IV pain meds and antinausea medications, After you have been discharged, you will need to go straight to [facility] in [place], to the emergency entrance, and tell them that you are to have stents placed by Dr. Ulloa, and they should accommodate you accordingly. Sepsis Event Note (ED) - Evaluation Sepsis Screening Result: No Definite Risk <Juan Manuel Crockett - Last Filed: 10/17/20 06:44> Course - Vital Signs Last Recorded V/S: Last Vital Signs Temp 36.5 C 10/16/20 17:45 Pulse 79 10/16/20 17:45 Resp 28 H 10/16/20 17:45 BP 199/88 H 10/16/20 17:45 Pulse Ox 100 10/16/20 17:45 - Orders/Labs/Meds Orders: Active Orders 24 hr Category Date Time Status EKG Documentation Completion [RC] ASDIRECTED Care 10/16/20 17:49 Active NPO After Midnight [Nothing per Oral After Midnight Diet 10/17/20 Breakfast Active Diet] [DIET] HYDROmorphone [Dilaudid] Med 10/16/20 21:15 Active 0.5 mg IVPUSH Q2H PRN Ondansetron [Zofran] Med 10/16/20 21:14 Active 4 mg IVPUSH Q6H PRN Sodium Chloride 0.9% [Normal Saline] 1,000 ml Med 10/16/20 20:50 Active IV ONETIME EKG 12 Lead [EK] Stat Ther 10/16/20 17:49 Ordered Medication Orders Hydromorphone HCl (Dilaudid) 0.5 mg IVPUSH Q2H PRN PRN Reason: Pain Last Admin: 10/17/20 04:05 Dose: 0.5 mg Documented by: KHUSHBOO Sodium Chloride (Normal Saline) 1,000 mls @ 100 mls/hr IV ONETIME ONE Stop: 10/17/20 06:49 Last Admin: 10/16/20 21:19 Dose: 100 mls/hr Documented by: KHUSHBOO Ondansetron HCl (Zofran) 4 mg IVPUSH Q6H PRN PRN Reason: Nausea Last Admin: 10/17/20 04:05 Dose: 4 mg Documented by: KHUSHBOO Labs: Laboratory Tests 10/16/20 10/16/20 10/16/20 Range/Units 18:06 18:06 19:40 WBC 12.71 H (3.98-10.04) K/mm3 RBC 4.77 (3.98-5.22) M/mm3 Hgb 13.4 (11.2-15.7) gm/dl Hct 41.6 (34.1-44.9) % MCV 87.2 (79.4-94.8) fl MCH 28.1 (25.6-32.2) pg MCHC 32.2 (32.2-35.5) g/dl RDW Std Deviation 42.6 (36.4-46.3) fL Plt Count 224 (182-369) K/mm3 MPV 10.8 (9.4-12.3) fl Neut % (Auto) 78.2 H (34.0-71.1) % Lymph % (Auto) 11.6 L (19.3-51.7) % [place] % (Auto) 9.4 (4.7-12.5) % Eos % (Auto) 0.4 L (0.7-5.8) Baso % (Auto) 0.2 (0.1-1.2) % Neut # (Auto) 9.95 H (1.56-6.13) K/mm3 Lymph # (Auto) 1.47 (1.18-3.74) K/mm3 [place] # (Auto) 1.19 H (0.24-0.36) K/mm3 Eos # (Auto) 0.05 (0.04-0.36) K/mm3 Baso # (Auto) 0.02 (0.01-0.08) K/mm3 Manual Slide Review Normal smear Sodium 140 (136-145) mEq/L Potassium 3.9 (3.5-5.1) mEq/L Chloride 103 (98-107) mEq/L Carbon Dioxide 27 (21-32) mEq/L Anion Gap 13.9 (5-15) BUN 22 H (7-18) mg/dL Creatinine 1.1 H (0.55-1.02) mg/dL Est Cr Clr Drug Dosing 32.62 mL/min Estimated GFR (MDRD) 48 (>60) mL/min BUN/Creatinine Ratio 20.0 H (14-18) Glucose 120 H (83-115) mg/dL Calcium 9.4 (8.5-10.1) mg/dL Total Bilirubin 0.7 (0.2-1.0) mg/dL AST 27 (15-37) U/L ALT 32 (14-59) U/L Alkaline Phosphatase 110 (46-116) U/L Troponin I < 0.017 (0.00-0.056) ng/mL Total Protein 7.3 (6.4-8.2) g/dl Albumin 4.1 (3.4-5.0) g/dl Globulin 3.2 gm/dL Albumin/Globulin Ratio 1.3 (1-2) Urine Color Yellow (Yellow) Urine Appearance Slt cloudy H (Clear) Urine pH 7.5 (5.0-8.0) Ur Specific [place] 1.020 (1.005-1.030) Urine Protein 1+ H (Negative) Urine Glucose (UA) Negative (Negative) Urine Ketones 2+ H (Negative) Urine Occult Blood 3+ H (Negative) Urine Nitrite Negative (Negative) Urine Bilirubin Negative (Negative) Urine Urobilinogen 0.2 (0.2-1.0) Ur Leukocyte Esterase 1+ H (Negative) Urine RBC 75-100 H (0-5) /hpf Urine WBC 10-20 H (0-5) /hpf Ur Squamous Epith Cells 0-5 (0-5) /hpf Urine Bacteria Few (FEW) /hpf Urine Mucus Not seen (FEW) /hpf Meds: Medications Generic Name Dose Route Start Last Admin Trade Name Freq PRN Reason Stop Dose Admin Hydromorphone HCl 0.5 mg 10/16/20 21:15 10/17/20 04:05 Dilaudid IVPUSH 0.5 mg Q2H PRN Administration Pain Sodium Chloride 1,000 mls @ 100 mls/hr 10/16/20 20:50 10/16/20 21:19 Normal Saline IV 10/17/20 06:49 100 mls/hr ONETIME ONE Administration Ondansetron HCl 4 mg 10/16/20 21:14 10/17/20 04:05 Zofran IVPUSH 4 mg Q6H PRN Administration Nausea Discontinued Medications Generic Name Dose Route Start Last Admin Trade Name [place] PRN Reason Stop Dose Admin Hydromorphone HCl 0.5 mg 10/16/20 18:30 10/16/20 18:41 Dilaudid IVPUSH 10/16/20 18:31 0.5 mg ONETIME ONE Administration Hydromorphone HCl 0.5 mg 10/16/20 20:04 10/16/20 20:13 Dilaudid IVPUSH 10/16/20 20:05 0.5 mg ONETIME ONE Administration Sodium Chloride 1,000 mls @ 999 mls/hr 10/16/20 19:23 10/16/20 19:43 Normal Saline IV 10/16/20 20:23 999 mls/hr ONETIME ONE Administration Ceftriaxone Sodium 2 gm/ 100 mls @ 200 mls/hr 10/16/20 20:38 10/16/20 21:03 Sodium Chloride IV 10/16/20 21:07 200 mls/hr ONETIME ONE Administration Ondansetron HCl 4 mg 10/16/20 18:30 10/16/20 18:40 Zofran IVPUSH 10/16/20 18:31 4 mg ONETIME ONE Administration Ondansetron HCl 4 mg 10/16/20 20:04 10/16/20 20:13 Zofran IVPUSH 10/16/20 20:05 4 mg ONETIME ONE Administration - Re-Assessments/Exams Free Text/Narrative Re-Assessment/Exam: 10/17/20 00:38 Notified by Veronica at [facility] that they have a bed available, and that the patient can come at any time. If her ride cannot take her until the morning, that is okay.
[2020-10-16] MEDS ORDERED: Sodium Chloride 0.9% 1,000 ML IV ONE ×2 (19:23→20:50)
--- NOTE | 2020-10-16 20:20 | CT ---
CT abdomen and pelvis Technique: Multiple axial sections were obtained from above the dome of the diaphragm inferiorly through the pubic symphysis. Intravenous contrast was not utilized. Study performed as a ureteral stone protocol. Findings: Multiple nonobstructing calculi are seen within both kidneys. There is an obstructing proximal left ureteral calculus being seen which measures approximately 5.6 mm. This causes inflammatory change around the left kidney. No other ureteral calculi are appreciated. Visualized lung bases show minimal atelectasis. Noncontrast appearance of the liver and spleen appear within normal limits. Surgical clips are noted from prior cholecystectomy. Adrenal glands show no nodule. Pancreas shows no discrete abnormality. Aorta shows atherosclerotic calcification with no aneurysm. No retroperitoneal adenopathy or mesenteric abnormalities are appreciated. No pelvic mass or adenopathy is seen. No free fluid is appreciated. Appendix is not visualized. Bone window settings were reviewed which show prior lumbar spine surgery. No acute osseous finding is appreciated. Impression: 1. 5.6 mm obstructing stone within the proximal left ureter which causes inflammatory change around the left kidney. 2. Multiple small nonobstructing calculi within both kidneys. 3. Other findings as noted above which are felt to be incidental. Diagnostic code #3
[2020-10-16] MEDS ORDERED: cefTRIAXone 2 GM in Sodium Chloride 0.9% 100 ML IV ONE (20:38)
[2020-10-16] MEDS ORDERED: Ondansetron 4 MG/2 ML SDV IVPUSH PRN (21:14)
[2020-10-16] MEDS ORDERED: HYDROmorphone 0.5 MG/0.5 ML Syringe IVPUSH PRN (21:15)
[2020-10-17 06:46] VITALS: BP 127/92
== END 2020-10-17 06:25 ==
LOC: JD.ED 17:34
DX: N30.01 Acute cystitis with hematuria (principal); N20.2 Calculus of kidney with calculus of ureter; E78.00 Pure hypercholesterolemia, unspecified; I10 Essential (primary) hypertension; F41.9 Anxiety disorder, unspecified; F32.9 Major depressive disorder, single episode, unspecified; E03.9 Hypothyroidism, unspecified; E11.9 Type 2 diabetes mellitus without complications; Z79.899 Other long term (current) drug therapy
CPT/HCPCS: 36415; 74176; 80053; 81001; 84484; 85025; 93005; 96365; 96375; 96376; 99285; J0696; J1170; J2405; J7030; J7050